=== PATIENT | male | born 1950 | race Caucasian/White ===

== ENCOUNTER → 2016-05-26 | Outpatient (CLI) | payer BC ==
--- NOTE | 2016-05-26 09:50 | REP ---
Chest x-ray: Two views. History: Shortness of breath. The patient gives history of sarcoidosis. Comparison chest x-ray July 11, 2007. CT findings: There are granulomatous calcifications scattered about the right lung apex and left perihilar region. There is some mild linear fibrosis in the left base. Heart is not enlarged. Pleural angles are sharp. Pulmonary vasculature is not increased. No evidence of hilar or mediastinal mass or adenopathy. There are degenerative changes in the thoracic spine mild in degree. Impression: No acute disease seen. Mild linear fibrosis left base. Signed by Damaso Betts MD 05/26/2016 10:25 A
== END ==
LOC: M SMT 09:27
PROVIDERS: ATTEND Family Medicine
DX: R06.02 Shortness of breath (principal); J84.112 Idiopathic pulmonary fibrosis

== ENCOUNTER → 2016-12-08 | Outpatient (CLI) | payer BC ==
[2016-12-08 13:42] LABS: ALBUMIN 3.8 GM/DL (3.2-5.2); ALBUMIN/GLOBULIN RATIO 1.27 (1.00-1.93); ALKALINE PHOSPHATASE 77 U/L (45-117); ALT/SGPT 47 U/L (12-78); ANION GAP 3 MEQ/L (8-16); AST/SGOT 25 U/L (15-37); BILIRUBIN,TOTAL 0.4 MG/DL (0.2-1.0); BLOOD UREA NITROGEN 22 MG/DL (7-18); CARBON DIOXIDE LEVEL 32 MEQ/L (21-32); CHLORIDE LEVEL 105 MEQ/L (98-107); CREATININE FOR GFR 0.77 MG/DL (0.70-1.30); GLOMERULAR FILTRATION RATE > 60.0 (>49); GLUCOSE, FASTING 80 MG/DL (80-110); POTASSIUM SERUM 4.6 MEQ/L (3.5-5.1); SODIUM LEVEL 140 MEQ/L (136-145); TOTAL PROTEIN 6.8 GM/DL (6.4-8.2)
== END ==
LOC: M SMT 09:58
PROVIDERS: ATTEND Family Medicine
DX: E55.9 Vitamin D deficiency, unspecified (principal); R73.01 Impaired fasting glucose

== ENCOUNTER → 2017-01-04 | Outpatient (CLI) | payer BC ==
--- NOTE | 2017-01-04 16:53 | REP ---
PA and lateral chest: Comparisons 05/26/2016. There is minor chronic fibrosis above the left hemidiaphragm. The right costophrenic angle is slightly effaced suggestive of a small right pleural effusion. Cardiac size is normal. The ede, mediastinum, and bony thorax are unremarkable. Stable granulomas are again noted in the right lung. Impression: Questionable tiny right pleural effusion. Chronic fibrosis inferiorly in the left lung. Stable granulomas. Signed by Haider Delgado MD 01/04/2017 04:44 P
[2017-01-04 19:04] LABS: ALBUMIN 3.3 GM/DL (3.2-5.2); ALBUMIN/GLOBULIN RATIO 0.97 (1.00-1.93); ALKALINE PHOSPHATASE 166 U/L (45-117); ALT/SGPT 109 U/L (12-78); ANION GAP 7 MEQ/L (8-16); AST/SGOT 52 U/L (15-37); BILIRUBIN,TOTAL 0.5 MG/DL (0.2-1.0); BLOOD UREA NITROGEN 18 MG/DL (7-18); CALCIUM LEVEL 9.3 MG/DL (8.8-10.2); CARBON DIOXIDE LEVEL 33 MEQ/L (21-32); CHLORIDE LEVEL 104 MEQ/L (98-107); CREATININE FOR GFR 1.04 MG/DL (0.70-1.30); GLOMERULAR FILTRATION RATE > 60.0 (>49); GLUCOSE, FASTING 101 MG/DL (80-110); POTASSIUM SERUM 4.5 MEQ/L (3.5-5.1); SODIUM LEVEL 144 MEQ/L (136-145); TOTAL PROTEIN 6.7 GM/DL (6.4-8.2)
[2017-01-04 20:30] LABS: BASO % 0.4 % (0.0-1.0); EOS # 0.2 K/mm3 (0.0-0.50); EOS % 2.2 % (0.0-3.0); LARGE UNSTAINED CELL # 0.2 K/mm3 (0.0-0.4); LARGE UNSTAINED CELL % 1.9 % (0.0-4.0); LYMPH # 1.2 K/mm3 (1.5-4.5); LYMPH % 14.9 % (24.0-44.0); MEAN CORPUSCULAR HEMOGLOBIN 31.9 pg (27.0-33.0); MEAN CORPUSCULAR HGB CONC 34.4 g/dl (32.0-36.5); MEAN CORPUSCULAR VOLUME 92.7 fl (80.0-96.0); MONO # 0.4 K/mm3 (0.0-0.8); MONO % 5.4 % (0.0-5.0); NEUTROPHILS % 75.1 % (36.0-66.0); PLATELET COUNT, AUTOMATED 217 k/mm3 (150-450); RED CELL DISTRIBUTION WIDTH 12.9 % (11.5-14.5)
[2017-01-04 21:15] LABS: ERYTHROCYTE SEDIMENTATION RATE 57 mm/hr (0-20)
== END ==
LOC: M SMT 12:17
PROVIDERS: ATTEND Family Medicine
DX: R06.02 Shortness of breath (principal)

== ENCOUNTER → 2017-01-18 | Outpatient (CLI) | payer BC | LOC: M SMT 08:45 | PROVIDERS: ATTEND Family Medicine | DX: N62 Hypertrophy of breast (principal) ==

== ENCOUNTER → 2017-04-13 | Outpatient (REF) | payer BC | LOC: M LAB REF 15:27 | DX: D48.5 Neoplasm of uncertain behavior of skin (principal); L82.1 Other seborrheic keratosis | CPT/HCPCS: 88305 ==

== ENCOUNTER → 2017-04-18 | Outpatient (CLI) | payer BC ==
[2017-04-19 14:13] LABS: PSA TOTAL 2.4 ng/mL (0.0-4.0); TESTOSTERONE FREE (DIRECT) 32.5 pg/mL (6.6-18.1)
== END ==
LOC: M SMT 08:34
DX: E29.1 Testicular hypofunction (principal)
CPT/HCPCS: 84403

== ENCOUNTER → 2017-08-17 | Outpatient (CLI) | payer BC ==
[2017-08-17 13:45] LABS: TOTAL 25(OH) VITAMIN D 24.1 NG/ML (30.0-100.0)
[2017-08-17 14:11] LABS: CHOLESTEROL LEVEL 169 MG/DL (<200); CHOLESTEROL RISK RATIO 4.333 (<5); HDL CHOLESTEROL 39 MG/DL (>40); LDL CHOLESTEROL 117.6 MG/DL (<100); NON-HDL-C 130 MG/DL; TRIGLYCERIDES LEVEL 62 MG/DL (<150)
[2017-08-22 00:08] LABS: PSA TOTAL 2.9 ng/mL (0.0-4.0); TESTOSTERONE FREE (DIRECT) 23.7 pg/mL (6.6-18.1)
== END ==
LOC: M SMT 08:31
DX: E29.1 Testicular hypofunction (principal); E55.9 Vitamin D deficiency, unspecified
CPT/HCPCS: 84403

== ENCOUNTER → 2017-08-21 | Outpatient (REF) | payer BC | LOC: M LAB REF 17:21 | DX: R35.0 Frequency of micturition (principal) | CPT/HCPCS: 87086 ==

== ENCOUNTER → 2018-01-11 | Outpatient (REF) | payer BC | LOC: M LAB REF 15:52 | DX: D48.5 Neoplasm of uncertain behavior of skin (principal) | CPT/HCPCS: 88305 ==

== ENCOUNTER → 2019-02-03 | Outpatient (CLI) | payer BC ==
[2019-02-03 10:40] LABS: BASO # 0.1 10^3/uL (0.0-0.2); BASO % 1.1 % (0.0-1.0); EOS # 0.1 10^3/uL (0.0-0.5); EOS % 1.5 % (0.0-3.0); HEMATOCRIT 60.4 % (42.0-52.0); LYMPH # 1.4 10^3/uL (1.5-5.0); LYMPH % 26.7 % (24.0-44.0); MEAN CORPUSCULAR HEMOGLOBIN 32.1 pg (27.0-33.0); MEAN CORPUSCULAR HGB CONC 33.4 g/dl (32.0-36.5); MONO # 0.5 10^3/uL (0.0-0.8); MONO % 9.6 % (0.0-5.0); NEUTROPHILS # 3.2 10^3/uL (1.5-8.5); NEUTROPHILS % 60.2 % (36.0-66.0); PLATELET COUNT, AUTOMATED 151 10^3/uL (150-450); RED BLOOD COUNT 6.29 10^6/uL (4.30-6.10); WHITE BLOOD COUNT 5.3 10^3/uL (4.0-10.0)
[2019-02-03 10:43] LABS: HEMOGLOBIN 20.2 g/dl (13.5-17.5)
[2019-02-03 11:45] LABS: ALBUMIN 3.6 GM/DL (3.2-5.2); ALT/SGPT 43 U/L (12-78); BILIRUBIN,TOTAL 0.7 MG/DL (0.2-1.0); BLOOD UREA NITROGEN 15 MG/DL (7-18); CALCIUM LEVEL 8.4 MG/DL (8.8-10.2); CARBON DIOXIDE LEVEL 32 MEQ/L (21-32); CHLORIDE LEVEL 104 MEQ/L (98-107); CHOLESTEROL LEVEL 160 MG/DL (<200); CHOLESTEROL RISK RATIO 4.102 (<5); FREE T4 0.84 NG/DL (0.76-1.46); GLOMERULAR FILTRATION RATE > 60.0 (>42); GLUCOSE, FASTING 92 MG/DL (70-100); HDL CHOLESTEROL 39 MG/DL (>40); LDL CHOLESTEROL 109 MG/DL (<100); NON-HDL-C 121 MG/DL; POTASSIUM SERUM 4.5 MEQ/L (3.5-5.1); SODIUM LEVEL 140 MEQ/L (136-145); TOTAL PROTEIN 6.2 GM/DL (6.4-8.2); TRIGLYCERIDES LEVEL 62 MG/DL (<150)
--- NOTE | 2019-02-04 03:01 | REP ---
Clinical: Right hip pain. Technique: Neutral and frog lateral views of the right hip. Findings: Age-related changes include subtle increase sclerosis along the acetabular roof with mild joint space narrowing. No further overt osteoarthritic degenerative changes are appreciated. No acute fracture dislocation. Surrounding soft tissues are unremarkable. Impression: Mild age-related degenerative changes. Electronically Signed by Chris Crowell MD 02/04/2019 02:52 A
[2019-02-06 00:16] LABS: PSA % FREE 19.4 % (.); PSA FREE 0.93 ng/mL; PSA TOTAL 4.8 ng/mL (0.0-4.0); TESTOSTERONE FREE (DIRECT) 27.5 pg/mL (6.6-18.1)
== END ==
LOC: M SMT 08:29
PROVIDERS: ATTEND Physician Assistant
DX: Z00.00 Encounter for general adult medical examination without abnormal findings (principal); E78.00 Pure hypercholesterolemia, unspecified; R06.02 Shortness of breath; F52.21 Male erectile disorder; M16.11 Unilateral primary osteoarthritis, right hip

== ENCOUNTER → 2019-03-10 | Outpatient (CLI) | payer BC ==
[2019-03-10 13:17] LABS: BASO # 0.1 10^3/uL (0.0-0.2); BASO % 0.7 % (0.0-1.0); EOS # 0.1 10^3/uL (0.0-0.5); EOS % 1.4 % (0.0-3.0); HEMATOCRIT 57.2 % (42.0-52.0); HEMOGLOBIN 19.3 g/dl (13.5-17.5); LYMPH # 1.2 10^3/uL (1.5-5.0); LYMPH % 16.3 % (24.0-44.0); MEAN CORPUSCULAR HEMOGLOBIN 32.2 pg (27.0-33.0); MEAN CORPUSCULAR HGB CONC 33.7 g/dl (32.0-36.5); MEAN CORPUSCULAR VOLUME 95.5 fl (80.0-96.0); MONO # 0.6 10^3/uL (0.0-0.8); NEUTROPHILS # 5.3 10^3/uL (1.5-8.5); PLATELET COUNT, AUTOMATED 153 10^3/uL (150-450); RED BLOOD COUNT 5.99 10^6/uL (4.30-6.10); WHITE BLOOD COUNT 7.3 10^3/uL (4.0-10.0)
[2019-03-12 00:07] LABS: PSA % FREE 21.8 % (.); PSA FREE 0.87 ng/mL
== END ==
LOC: M LABDRWAD 11:06
PROVIDERS: ATTEND Physician Assistant
DX: D75.1 Secondary polycythemia (principal); R97.20 Elevated prostate specific antigen [PSA]; E29.1 Testicular hypofunction

== ENCOUNTER → 2019-03-11 | Outpatient (REF) | payer BC ==
[2019-03-15 00:07] LABS: TESTOSTERONE FREE (DIRECT) 11.5 pg/mL (6.6-18.1)
== END ==
LOC: M LABDRWAD 16:20
PROVIDERS: ATTEND Physician Assistant
DX: D75.1 Secondary polycythemia (principal); R97.20 Elevated prostate specific antigen [PSA]; E29.1 Testicular hypofunction

== ENCOUNTER → 2019-06-02 | Outpatient (REF) | payer BC ==
[~2019-06-02] MED LIST: ADV250INH INH; ASPI325T57 PO; FLAR0.1S OD; PRAV40TA PO; TEST200I14 IM
[2019-06-02 13:36] LABS: BASO # 0.1 10^3/uL (0.0-0.2); EOS # 0.1 10^3/uL (0.0-0.5); EOS % 1.7 % (0.0-3.0); HEMATOCRIT 53.5 % (42.0-52.0); HEMOGLOBIN 18.4 g/dl (13.5-17.5); LYMPH # 1.2 10^3/uL (1.5-5.0); LYMPH % 23.8 % (24.0-44.0); MEAN CORPUSCULAR HEMOGLOBIN 32.2 pg (27.0-33.0); MEAN CORPUSCULAR HGB CONC 34.4 g/dl (32.0-36.5); MEAN CORPUSCULAR VOLUME 93.7 fl (80.0-96.0); MONO # 0.4 10^3/uL (0.0-0.8); MONO % 7.6 % (0.0-5.0); NEUTROPHILS # 3.2 10^3/uL (1.5-8.5); NEUTROPHILS % 65.5 % (36.0-66.0); PLATELET COUNT, AUTOMATED 151 10^3/uL (150-450); RED BLOOD COUNT 5.71 10^6/uL (4.30-6.10); WHITE BLOOD COUNT 4.8 10^3/uL (4.0-10.0)
[2019-06-04 00:06] LABS: PSA TOTAL 2.6 ng/mL (0.0-4.0); TESTOSTERONE FREE (DIRECT) 12.4 pg/mL (6.6-18.1)
== END ==
LOC: M LABDRWAD 12:44
PROVIDERS: ATTEND Physician Assistant
DX: E29.1 Testicular hypofunction (principal); D75.1 Secondary polycythemia

== ENCOUNTER 2019-06-04 17:27 | Emergency (ER) | payer BC, OTHER ==
[~2019-06-04] VITALS: Ht 182.9 cm; Wt 108.0 kg
[2019-06-04] MEDS ORDERED: ADV250INH INH (17:37)
[2019-06-04] MEDS ORDERED: ASPI325T57 PO (17:37)
[2019-06-04] MEDS ORDERED: PRAV40TA PO (17:37)
[2019-06-04 17:59] LABS: BASO % 0.5 % (0.0-1.0); EOS # 0.1 10^3/uL (0.0-0.5); EOS % 1.6 % (0.0-3.0); HEMATOCRIT 48.3 % (42.0-52.0); LYMPH # 1.7 10^3/uL (1.5-5.0); LYMPH % 22.1 % (24.0-44.0); MEAN CORPUSCULAR HEMOGLOBIN 32.3 pg (27.0-33.0); MEAN CORPUSCULAR HGB CONC 35.2 g/dl (32.0-36.5); MEAN CORPUSCULAR VOLUME 91.8 fl (80.0-96.0); MONO # 0.6 10^3/uL (0.0-0.8); MONO % 7.6 % (0.0-5.0); NEUTROPHILS # 5.1 10^3/uL (1.5-8.5); NEUTROPHILS % 67.7 % (36.0-66.0); PLATELET COUNT, AUTOMATED 155 10^3/uL (150-450); RED BLOOD COUNT 5.26 10^6/uL (4.30-6.10); WHITE BLOOD COUNT 7.5 10^3/uL (4.0-10.0)
[2019-06-04] MEDS: NITROGLYCERIN 0.4 MG SUBL TABLET SL PRN ×2 (18:00→18:16)
[2019-06-04 18:11] LABS: INR 1.09; PROTHROMBIN TIME 13.8 SECONDS (11.8-14.0)
[2019-06-04 18:12] LABS: PARTIAL THROMBOPLASTIN TIME 25.7 SECONDS (25.0-38.4)
[2019-06-04] MEDS: MORPHINE 2 MG/ML 1ML VIAL (J2270) IV PRN ×2 (18:13→18:59)
[2019-06-04] MEDS ORDERED: ONDANSETRON 4MG/2ML VIAL (J2405) IV ONE (18:15)
[2019-06-04 18:16] VITALS: BP 119/69
[2019-06-04 18:20] LABS: ALBUMIN 3.6 GM/DL (3.2-5.2); ALT/SGPT 39 U/L (12-78); BILIRUBIN,DIRECT 0.2 MG/DL (0.0-0.2); BILIRUBIN,TOTAL 0.5 MG/DL (0.2-1.0); BLOOD UREA NITROGEN 19 MG/DL (7-18); CALCIUM LEVEL 8.4 MG/DL (8.8-10.2); CARBON DIOXIDE LEVEL 29 MEQ/L (21-32); CHLORIDE LEVEL 106 MEQ/L (98-107); CK-MB VALUE MASS 5.5 NG/ML (<3.6); CPK CREATINE PHOSPHOKINASE 179 U/L (39-308); CREATININE FOR GFR 1.08 MG/DL (0.70-1.30); GLOMERULAR FILTRATION RATE > 60.0 (>42); GLUCOSE, FASTING 125 MG/DL (70-100); LIPASE 120 U/L (73-393); MB/CK RELATIVE INDEX 3.07 (< OR =4); SODIUM LEVEL 138 MEQ/L (136-145); TROPONIN I 0.05 NG/ML (< 0.10)
[2019-06-04] MEDS ORDERED: ISOVUE-370 76% 100ML VIAL (Q9967) As Ordered ONE ×2 (18:33→18:42)
--- NOTE | 2019-06-04 18:48 | REP ---
Clinical: Chest pain . Comparison: 01/04/2017 . Findings: The mediastinum and cardiac silhouette are stable and within normal limits for portable technique. The lung solomon are clear without acute consolidation, effusion, or pneumothorax. Skeletal structures are intact. Impression: No acute cardiopulmonary process appreciated. Electronically Signed by Chris Crowell MD 06/04/2019 06:40 P
--- NOTE | 2019-06-04 19:04 | REPVR ---
PROCEDURE INFORMATION: Exam: CT Angiography Chest With Contrast Exam date and time: 06/04/2019 6:23 PM Age: 69 years old Clinical indication: Chest pain; Additional info: R/O taa/disection TECHNIQUE: Imaging protocol: Computed tomographic angiography of the chest with intravenous contrast. 3D rendering: MIP and/or 3D reconstructed images were created by the technologist. Radiation optimization: All CT scans at this facility use at least one of these dose optimization techniques: automated exposure control; mA and/or kV adjustment per patient size (includes targeted exams where dose is matched to clinical indication); or iterative reconstruction. Contrast material: ISOVUE 370; Contrast volume: 100 ml; Contrast route: IV; COMPARISON: CR PORTABLE CHEST X-RAY 06/04/2019 5:53 PM FINDINGS: Pulmonary arteries: There are no pulmonary emboli. Aorta: There is fusiform dilatation of the ascending thoracic aorta which measures 3.7 cm. maximally. There is no dissection or saccular component. Lungs: Small polygonal ground-glass opacity right lung base likely atelectatic. Small calcified granulomata right upper lobe. Pleural space: Unremarkable. No pneumothorax. No pleural effusion. Heart: There is mild atherosclerotic calcification of the coronary arteries. Lymph nodes: Multiple calcified right and left hilar lymph nodes. Bones/joints: The spine demonstrates mild degenerative changes. Soft tissues: Unremarkable. IMPRESSION: 1. There is fusiform dilatation of the ascending thoracic aorta which measures 3.7 cm. maximally. There is no dissection or saccular component. 2. There are no pulmonary emboli. 3. No acute pulmonary parenchymal abnormalities. 4. Findings consistent with remote intrathoracic granulomatous infection. Electronically signed by: Lee Ngo On 06/04/2019 19:04:24 PM
[2019-06-04] MEDS ORDERED: TEST200I14 IM (19:50)
[2019-06-04] MEDS ORDERED: FLAR0.1S OD (20:05)
[2019-06-04 20:36] LABS: CK-MB VALUE MASS 13.2 NG/ML (<3.6); MB/CK RELATIVE INDEX 5.48 (< OR =4); TROPONIN I 2.07 NG/ML (< 0.10)
[2019-06-04] MEDS ORDERED: ASPIRIN 325 MG TAB PO ONE (20:45)
[2019-06-04] MEDS ORDERED: CLOPIDOGREL 300 MG TAB (PLAVIX) PO STA (20:45)
[2019-06-04] MEDS ORDERED: HEPARIN DRIP 25,000 UNITS in IV 1 EA IV SCH (20:45)
[2019-06-04] MEDS ORDERED: HEPARIN SOD (PORCINE) 5000 UNITS/ML VIAL (J1644 PER 1000UNITS) IV ONE (20:45)
--- NOTE | 2019-06-04 20:46 | ECGEPIP ---
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
--- NOTE | 2019-06-04 20:51 | ECGEPIP ---
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
[2019-06-04 22:01] VITALS: BP 141/67
== END 2019-06-04 22:11 | disposition short-term general hospital (02) ==
LOC: EDBD 17:27 → M ED 17:27
DX: I21.4 Non-ST elevation (NSTEMI) myocardial infarction (principal); I71.2 Thoracic aortic aneurysm, without rupture; E78.5 Hyperlipidemia, unspecified; J45.909 Unspecified asthma, uncomplicated; Z79.82 Long term (current) use of aspirin; Z79.899 Other long term (current) drug therapy
CPT/HCPCS: 71045; 71275; 80047; 80048; 80076; 82550; 82553; 83690; 84484; 85025; 85610; 85730; 93005; 93041; 94760; 96374; 96375; 99285; J1644; J2270; J2405; Q9967

== ENCOUNTER → 2019-09-02 | Outpatient (REF) | payer OTHER ==
[2019-09-02 13:29] LABS: BASO % 0.8 % (0.0-1.0); EOS # 0.2 10^3/uL (0.0-0.5); EOS % 3.7 % (0.0-3.0); HEMATOCRIT 53.5 % (42.0-52.0); HEMOGLOBIN 18.5 g/dl (13.5-17.5); LYMPH # 1.6 10^3/uL (1.5-5.0); LYMPH % 30.4 % (24.0-44.0); MEAN CORPUSCULAR HGB CONC 34.6 g/dl (32.0-36.5); MEAN CORPUSCULAR VOLUME 95.4 fl (80.0-96.0); MONO # 0.6 10^3/uL (0.0-0.8); MONO % 11.2 % (0.0-5.0); NEUTROPHILS # 2.8 10^3/uL (1.5-8.5); NEUTROPHILS % 53.3 % (36.0-66.0); PLATELET COUNT, AUTOMATED 176 10^3/uL (150-450); RED BLOOD COUNT 5.61 10^6/uL (4.30-6.10); WHITE BLOOD COUNT 5.2 10^3/uL (4.0-10.0)
[2019-09-02 14:22] LABS: ALBUMIN 3.9 GM/DL (3.2-5.2); ALT/SGPT 50 U/L (12-78); BILIRUBIN,TOTAL 0.6 MG/DL (0.2-1.0); BLOOD UREA NITROGEN 15 MG/DL (7-18); CALCIUM LEVEL 9.2 MG/DL (8.8-10.2); CARBON DIOXIDE LEVEL 32 MEQ/L (21-32); CHLORIDE LEVEL 105 MEQ/L (98-107); CHOLESTEROL LEVEL 147 MG/DL (<200); CHOLESTEROL RISK RATIO 3.062 (<5); CREATININE FOR GFR 0.84 MG/DL (0.70-1.30); GLOMERULAR FILTRATION RATE > 60.0 (>42); GLUCOSE, FASTING 92 MG/DL (70-100); HDL CHOLESTEROL 48 MG/DL (>40); LDL CHOLESTEROL 85 MG/DL (<100); NON-HDL-C 99 MG/DL; POTASSIUM SERUM 4.9 MEQ/L (3.5-5.1); SODIUM LEVEL 142 MEQ/L (136-145); TOTAL 25(OH) VITAMIN D 40.6 NG/ML (30.0-100.0); TOTAL PROTEIN 6.7 GM/DL (6.4-8.2); TRIGLYCERIDES LEVEL 72 MG/DL (<150)
[2019-09-03 14:19] LABS: TESTOSTERONE FREE (DIRECT) 10.7 pg/mL (6.6-18.1)
== END ==
LOC: M LABDRWAD 12:44
PROVIDERS: ATTEND Physician Assistant
DX: E55.9 Vitamin D deficiency, unspecified (principal); E78.00 Pure hypercholesterolemia, unspecified; E29.1 Testicular hypofunction

== ENCOUNTER → 2019-10-07 | Outpatient (REF) | payer MEDICARE ==
[2019-10-07 14:35] LABS: CHOLESTEROL RISK RATIO 3.545 (<5)
== END ==
LOC: M LABDRWAD 12:41
PROVIDERS: ATTEND Nurse Practitioner Adult Health
DX: I25.10 Atherosclerotic heart disease of native coronary artery without angina pectoris (principal); E78.00 Pure hypercholesterolemia, unspecified

== ENCOUNTER → 2019-10-23 | Outpatient (REF) | payer MEDICARE, BC, OTHER | LOC: M LAB REF 14:54 | PROVIDERS: ATTEND Physician Assistant | DX: C44.519 Basal cell carcinoma of skin of other part of trunk (principal); C44.629 Squamous cell carcinoma of skin of left upper limb, including shoulder ==

== ENCOUNTER → 2019-12-09 | Outpatient (REF) | payer BC, MEDICARE, OTHER | LOC: M LAB REF 14:00 | PROVIDERS: ATTEND Dermatology | DX: L90.5 Scar conditions and fibrosis of skin (principal) ==

== ENCOUNTER → 2021-01-25 | Outpatient (REF) | payer BC, MEDICARE, OTHER ==
[~2021-01-25] MED LIST changes: +ATOR40TA75 PO; +BRIL90TA PO; +CARV3.12 PO; +D-40TAB2 PO; +DIAZ10TA2 PO; +FLOM0.4C39 PO; +LOSA25TA14 PO; +MAGN400C PO; +MOME50SP NARES; +PROAAER10 INH; +SILD100T PO; +TRAM50TA2 PO
== END ==
LOC: M LAB REF 16:53
PROVIDERS: ATTEND Family Medicine
DX: R06.02 Shortness of breath (principal)

== ENCOUNTER 2021-01-26 14:03 | Observation (INO) | payer MEDICARE, OTHER ==
[~2021-01-26] VITALS: Ht 182.9 cm; Wt 116.9 kg
[~2021-01-26 14:03] MED LIST changes: -ATOR40TA75 PO; -BRIL90TA PO; -CARV3.12 PO; -D-40TAB2 PO; -DIAZ10TA2 PO; -FLOM0.4C39 PO; -ISOVUE-370 76% 100ML VIAL As Ordered ONE; -LOSA25TA14 PO; -MAGN400C PO; -MOME50SP NARES; -PROAAER10 INH; -SILD100T PO; -TRAM50TA2 PO
--- OUTSIDE RECORDS SUMMARY | 2021-01-26 14:10 | CCD | Continuity of Care Document ---
Author Author Rashid WRAY D.O. Organization Unknown Address [id number] [place] [address] Phone [phone] Care Team Providers Care Main Line Assembler Name Role Phone Grazyna Wray D.O. AUTM [phone] Problems Active Problems Provider Date Pure hypercholesterolemia Onset: 014 Epistaxis Grazyna Wray D.O. Onset: 2014 Neoplasm of uncertain behavior of skin Grazyna Wray D.O. Onset: 06/30/2014 Squamous Cell Carcinoma Skin Upper Limb Including Shou lder Grazyna Wray D.O. Onset: 07/02/2014 Bite of nonvenomous arthropod Grazyna Wray D.O. Ons et: 09/08/2014 Cellulitis Grazyna Wray D.O. Onset: 2014 Nonallopathic lesion of the head region Grazyna Wray D.O. Onset: 10/13/2014 Nonallopathic lesion of the cervical region Grazyna casiano D.O. Onset: 10/13/2014 Nonallopathic lesion of the thoracic region Grazyna casiano D.O. Onset: 10/13/2014 Nonallopathic lesion of lumbar region Grazyna Wray D.O. Onset: 10/13/2014 Nonallopathic lesion of sacral region Grazyna Wray D.O. Onset: 10/13/2014 Somatic dysfunction of pelvic region Stan Benjamin Onset: 10/13/2014 Dizziness and giddiness Stan Benjamin.O. 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 Onset: 10/13/2014 Lyme disease Stan Benjamin.O. Onset: 2014 Epidemic vertigo Stan Benjamin.O. Onset: 2014 Somatic dysfunction of sacroiliac joint Stan Benjamin.O. Onset: 01/15/2015 Somatic dysfunction of lower limb Stan Benjamin.O. Onset: 07/29/2015 Psychogenic impotence Stan Benjamin.O. Onset: 10/14 Adult health examination Grazyna Wray D.O. Onset: 0 12/06/2015 Inflamed seborrheic keratosis Grazyna Wray D.O. Ons et: 12/06/2015 Senile hyperkeratosis Stan Benjamin.O. Onset: 12/2015 Pain in thoracic spine Grazyna Wray D.O. Onset: Moderate persistent asthma Grazyna Wray D.O. Onset: 05/31/2016 Low back pain Grazyna Wray D.O. Onset: 2016 C/O - a back symptom Stan Benjamin.O. Onset: 06/08 Vitamin D deficiency Grazyna Wray D.O. Onset: 09/05 Impaired fasting glycemia Grazyna Wray D.O. Onset: 09/05/2016 Arthroplasty of knee Stan Benjamin.O. Onset: 09/05 Pain in right lower limb Grazyna Wray D.O. Onset: 0 09/05/2016 Dyspnea Grazyna Wray D.O. Onset: 2016 Moderate persistent asthma STACIA Burris Onset: 07/23 Moderate persistent asthma Grazyna Wray D.O. Onset: 09/04/2019 Social History Type Date Description Comments Sex Unknown ETOH Use Currently consumes alcohol Tobacco Use Start: Unknown Patient has never smoked Recreational Drug Use Denies Drug Use Smoking Status Reviewed: 07/24/19 Patient has never smoked Exercise Type/Frequency walks occasionally Allergies, Adverse Reactions, Alerts Active Allergies Reaction Severity Comments Date NKDA 01/08/2014 Bee Sting Flushing, Hives, Wheezing Severe Medications Active Medications SIG Qnty Indications Ordering Provide r Date Epipen 2-Prashanth 0.3mg/0 .3ML Solution Auto-Inject inject once in anterolateral thigh may r epeat after 5-15 min if symptoms persist 2units Z91.030 Stephanie BenjaminOLiliana 11/01 Tamsulosin HCL 0.4mg Capsules Take One Capsule By Mouth Every Day 90caps Stephanie BenjaminO. 02/17/2020 Ventolin HFA 108(90Base) mcg/Act A erosol 2 puffs every 4 hours shortness of breath or wheezing 24gm Stephanie BenjaminOLiliana 07/16/2019 Atorvastatin Calcium 40mg Tablets 1 by mouth every day Stephanie BenjaminOLiliana 06/26 Sildenafil Citrate 100mg Tablets take 1 tablet daily before sexual activity as needed 26tabs F52.21 Stephanie CheneyOLiliana 12/10/2018 Albuterol Sulfate 1.25mg/3ML Nebul izer one nebulizer every 6 hours as needed for shortness of breath 30ml Stephanie CheneyOLiliana 05/23/2018 Nebulizer Kit/Tubing/Mouthpiece K it dispense: 1 kit duration: 99 prognosis: fair 1units J20.9 Stephanie BenjaminOLiliana 05/23/2018 BD 3ML Syringe/Safetyglide Shielding Im Needle 23GX1" 23G X 1" 3 ML Misc use to inject testosterone 100units Stephanie BenjaminOLiliana 01/11/2018 Fluorouracil 5% Solution apply sufficient amount of solution to cover lesion on back q12hr for 3-6 wk; may continue application for up to 10-12 weeks 30ml Stephanie CheneyOLiliana 04/13/2017 BD 1ML Tuberculin Syringeslip-Tip 1ml Misc use to draw up testosterone 100units Stephanie AlexandraOLiliana 02/20/2017 Alcohol Pads 70% Pads to be used once daily when administering testosterone injection 180units Stephanie BenjaminOLiliana 01/26/2017 Testosterone Cypionate 200mg/ml So lution injection 0.6 milliliters once a week code f istop [id number] 7ml E29.1 Stephanie BenjaminOLiliana 01/23/2017 Vitamin D3 Super Strength 2000Unit Capsules 1 by mouth every day 90caps E55.9 Stephanie BenjaminOLiliana 09/05/2016 Tramadol HCL 50mg Tablets Take One Tablet By Mouth Twice A Day as Needed * Maximum Daily Dose = 2 60tabs M54. 6 Stephanie BenjaminOLiliana 06/08/2016 Cyclobenzaprine HCL 10mg Tablets one tablet daily three times a day as needed 90tabs M62.830 Stephanie BenjaminO. 06/08/2016 Mucinex 600mg Tablets ER 12HR 1 tab every 12 hours as needed 60tabs J01.00 Stephanie BenjaminO. Valium 10mg Tablets take one tablet by mouth three times daily for 4 days istop reference #: [id number] 12tabs R42 Stephanie BenjaminOLiliana 2015 Cetirizine HCL 10mg Tablets 1 by mouth every day 30tabs Stephanie BenjaminOLiliana 09/08 Nasonex 50mcg/Act Suspension 1 spray in each nostril daily as needed 51gm Stephanie ChicasOLiliana 01/27/2014 Advair Diskus 250-50mcg/Dose Aeros ol 1 puffs inhaled twice daily (90 day supplies) 180units Stephanie BenjaminOLiliana 01/27/2014 Magnesium Oxide 400mg Tablets 1 by mouth every day Unknown Co Q10 Maximum Strength 200mg Caps ules 1 cap by mouth daily Unknown Calcium 600+D High Potency [id number]-Aarm Tablets 1 tab by mouth daily Unknown Turmeric 500mg Capsules two tablet by mouth once per day Unknown Carvedilol 3.125mg Tablets 1 by mouth twice daily Unknown Nitroglycerin 0.4mg Tablets Sub 1 under the tongue every 5 minutes for chest pain up to 3 doses as needed for chest pain Unknown Brilinta 90mg Tablets 1 tab by mouth twice a day Unknown Fluorometholone 0.1% Suspension 1 drop in right eye every 4 hours Unknown Losartan Potassium 25mg Tablets 1 by mouth every evening Unknown Immunizations Description No Information Available Vital Signs Date Vital Result Comment 11/11/2020 3:47pm BP Systolic 138 mmHg BP Diastolic 84 mmHg Height 71 inches 5'11" Weight 259.00 lb BMI (Body Mass Index) 36.1 kg/m2 Heart Rate 76 /min Respiratory Rate 20 /min Body Temperature 98.4 F O2 % BldC Oximetry 99 % [place] [facility] Weight 172 lb 06/23/2020 9:26am BP Systolic 140 mmHg BP Diastolic 68 mmHg Height 71 inches 5'11" Weight 246.00 lb BMI (Body Mass Index) 34.3 kg/m2 Heart Rate 71 /min Respiratory Rate 18 /min Body Temperature 97.7 F O2 % BldC Oximetry 96 % [place] [facility] Weight 172 lb Results Description No Information Available Procedures Date Code Description Status 11/11/2020 25797 Office/Outpatient Established w MDM 20-29 Min Completed 11/11/2020 04620 Omt 9-10 Body [place] Completed 06/23/2020 87890 Office/Outpatient Established w MDM 20-29 Min Completed 06/23/2020 36311 Omt 7-8 Body [place] Completed Medical Devices Description No Information Available Encounters Type Date Location Provider Dx Diagnosis Office Visit 11/11/2020 3:40p [facility] Lex Wray D.O. M54.6 Pain in thoracic spine M25.551 Pain in right hip M54.5 Low back pain M99.00 Segmental and somatic dysfun ction of head region M99.01 Segmental and somatic dysfun ction of cervical region M99.02 Segmental and somatic dysfun ction of thoracic region M99.03 Segmental and somatic dysfun ction of lumbar region M99.05 Segmental and somatic dysfun ction of pelvic region M99.04 Segmental and somatic dysfun ction of sacral region M99.06 Segmental and somatic dysfun ction of lower extremity M99.07 Segmental and somatic dysfun ction of upper extremity M99.08 Segmental and somatic dysfun ction of rib cage Office Visit 06/23/2020 9:20a [facility] Grazyna Wray D.O. M54.6 Pain in thoracic spine M25.551 Pain in right hip M54.5 Low back pain M99.00 Segmental and somatic dysfun ction of head region M99.01 Segmental and somatic dysfun ction of cervical region M99.02 Segmental and somatic dysfun ction of thoracic region M99.03 Segmental and somatic dysfun ction of lumbar region M99.05 Segmental and somatic dysfun ction of pelvic region M99.04 Segmental and somatic dysfun ction of sacral region M99.06 Segmental and somatic dysfun ction of lower extremity Assessments Date Code Description Provider 11/11/2020 M54.6 Pain in thoracic spine Grazyna Dumont, D.O. 11/11/2020 M25.551 Pain in right hip Grazyna Kaufman D.O. 11/11/2020 M54.5 Low back pain Grazyna casiano D.O. 11/11/2020 M99.00 Segmental and somatic dysfunctio n of head region Grazyna Wray D.O. 11/11/2020 M99.01 Segmental and somatic dysfunctio n of cervical region Grazyna Wray D.O. 11/11/2020 M99.02 Segmental and somatic dysfunctio n of thoracic region Grazyna Wray D.O. 11/11/2020 M99.03 Segmental and somatic dysfunctio n of lumbar region Grazyna Wray D.O. 11/11/2020 M99.05 Segmental and somatic dysfunctio n of pelvic region Grazyna Chaconeano-Mandeep, D.O. 11/11/2020 M99.04 Segmental and somatic dysfunctio n of sacral region Grazyna Chaconeano-Mandeep, D.O. 11/11/2020 M99.06 Segmental and somatic dysfunctio n of lower extremity Grazyna Chaconeano-Mandeep, D.O. 11/11/2020 M99.07 Segmental and somatic dysfunctio n of upper extremity Grazyna Matthew-Mandeep, D.O. 11/11/2020 M99.08 Segmental and somatic dysfunctio n of rib cage Grazyna Fariasno- Mandeep, D.O. 06/23/2020 M54.6 Pain in thoracic spine Grazyna Chacon eano-Mandeep, D.O. 06/23/2020 M25.551 Pain in right hip Grazyna Castro- Mandeep, D.O. 06/23/2020 M54.5 Low back pain Grazyna UriarteWalters rber, D.O. 06/23/2020 M99.00 Segmental and somatic dysfunctio n of head region Grazyna Fariasno-Mandeep, D.O. 06/23/2020 M99.01 Segmental and somatic dysfunctio n of cervical region Grazyna Fraiasno-Mandeep, D.O. 06/23/2020 M99.02 Segmental and somatic dysfunctio n of thoracic region Grazyna Chaconeano-Mandeep, D.O. 06/23/2020 M99.03 Segmental and somatic dysfunctio n of lumbar region Grazyna Chaconeano-Mandeep, D.O. 06/23/2020 M99.05 Segmental and somatic dysfunctio n of pelvic region Grazyna Chaconeano-Mandeep, D.O. 06/23/2020 M99.04 Segmental and somatic dysfunctio n of sacral region Grazyna Chaconeano-Mandeep, D.O. 06/23/2020 M99.06 Segmental and somatic dysfunctio n of lower extremity Grazyna Wray D.O. Plan of Treatment No Information Available Functional Status Description No Information Available Mental Status Description No Information Available Referrals Description No Information Available
--- OUTSIDE RECORDS SUMMARY | 2021-01-26 14:10 | CCD | Continuity of Care Document ---
Author Author Rashid CHIN D.O. Organization Unknown Address [address] [place] [address] Phone [phone] Care Team Providers Care Requirements Manager Name Role Phone Grazyna Chin D.O. AUTM [phone] Problems Active Problems Provider Date Pure hypercholesterolemia Onset: 014 Epistaxis Grazyna Chin D.O. Onset: 2014 Neoplasm of uncertain behavior of skin Grazyna Chin D.O. Onset: 06/30/2014 Squamous Cell Carcinoma Skin Upper Limb Including Shou lder Grazyna Chin D.O. Onset: 07/02/2014 Bite of nonvenomous arthropod Grazyna Chin D.O. Ons et: 09/08/2014 Cellulitis Grazyna Chin D.O. Onset: 2014 Nonallopathic lesion of the head region Grazyna Chin D.O. Onset: 10/13/2014 Nonallopathic lesion of the cervical region Grazyna casiano D.O. Onset: 10/13/2014 Nonallopathic lesion of the thoracic region Grazyna casiano D.O. Onset: 10/13/2014 Nonallopathic lesion of lumbar region Grazyna Chin D.O. Onset: 10/13/2014 Nonallopathic lesion of sacral region Grazyna Chin D.O. Onset: 10/13/2014 Somatic dysfunction of pelvic [...] Benjamin.O. Onset: 10/14 Adult health examination Grazyna Chin D.O. Onset: 0 12/06/2015 Inflamed seborrheic keratosis Grazyna Chin D.O. Ons et: 12/06/2015 Senile hyperkeratosis Stan Benjamin.O. Onset: 12/2015 Pain in thoracic spine Grazyna Chin D.O. Onset: Moderate persistent asthma Grazyna Chin D.O. Onset: 05/31/2016 Low back pain Grazyna Chin D.O. Onset: 2016 C/O - a back symptom Stan Benjamin.O. Onset: 06/08 Vitamin D deficiency Grazyna Chin D.O. Onset: 09/05 Impaired fasting glycemia Grazyna Chin D.O. Onset: 09/05/2016 Arthroplasty of knee Stan Benjamin.O. Onset: 09/05 Pain in right lower limb Grazyna Chin D.O. Onset: 0 09/05/2016 Dyspnea Grazyna Chin D.O. Onset: 2016 Moderate persistent asthma STACIA Burris Onset: 07/23 Moderate persistent asthma Grazyna Chin D.O. Onset: 09/04/2019 Moderate persistent asthma Grazyna Chin D.O. Onset: 01/25/2021 Social History Type Date Description Comments Sex Unknown ETOH Use Currently consumes alcohol Tobacco Use Start: Unknown Patient has never smoked Recreational Drug Use Denies Drug Use Smoking Status Reviewed: 01/25/21 Patient has never smoked Exercise Type/Frequency walks occasionally Allergies and adverse reactions Active Allergies Criticality Reaction | Severity Comments Date NKDA Unable to assess criticality 01/08/2014 Bee Sting Unable to assess criticality Flushing, Hives, Wheezing | Severe 11/01/2020 Medications Active Medications SIG Qnty Indications Ordering Provide r Date Tadalafil 5mg Tablets take 1 tablet by mouth daily 90tabs Stephanie BenjaminOLiliana 12/23 Epipen 2-Prashanth 0.3mg/0 .3ML Solution Auto-Inject inject once in anterolateral thigh may epeat after 5-15 min if symptoms persist 2units Z91.030 Stephanie BenjaminOLiliana 11/01 Tamsulosin HCL 0.4mg Capsules Take One Capsule By Mouth Every Day 90caps Stephanie BenjaminOLiliana 02/17/2020 Ventolin HFA 108(90Base) mcg/Act A erosol [...] milliliters once a week code f istop [id number] 7ml E29.1 Stephanie BenjaminOLiliana 01/23/2017 Vitamin D3 Super Strength 2000Unit Capsules 1 by mouth every day 90caps E55.9 Stephanie BenjaminOLiliana 09/05/2016 Tramadol HCL 50mg Tablets Take One Tablet By Mouth Twice A Day as Needed * Maximum Daily Dose = 2 60tabs M54. 6 Stephanie BenjaminOLiliana 06/08/2016 Cyclobenzaprine HCL 10mg Tablets one tablet daily three times a day as needed 90tabs M62.830 Stephanie BenjaminOLiliana 06/08/2016 Mucinex 600mg Tablets ER 12HR 1 tab every 12 hours as needed 60tabs J01.00 Stephanie BenjaminOLiliana Valium 10mg Tablets take one tablet by mouth three times daily for 4 days istop reference #: [id number] 12tabs R42 Stephanie BenjaminOLiliana 2015 Cetirizine HCL 10mg Tablets 1 by mouth every day 30tabs Stephanie BenjaminOLiliana 09/08 Nasonex 50mcg/Act Suspension 1 spray in each nostril daily as needed 51gm Stephanie ChicasOLiliana 01/27/2014 Advair Diskus 250-50mcg/Dose Aeros ol 1 puffs inhaled twice daily (90 day supplies) 180units Grazyna Chin D.O. 01/27/2014 Magnesium Oxide 400mg Tablets 1 by mouth every day Unknown Co Q10 Maximum Strength 200mg Caps ules 1 cap by mouth daily Unknown Calcium 600+D High Potency [id number] Tablets 1 tab by mouth daily Unknown [...] Available Vital Signs Date Vital Result Comment 01/25/2021 3:27pm BP Systolic 126 mmHg BP Diastolic 72 mmHg Height 71 inches 5'11" Heart Rate 72 /min Respiratory Rate 20 /min Body Temperature 98.9 F O2 % BldC Oximetry 94 % [place] Body Weight 172 lb 11/11/2020 3:47pm BP Systolic 138 mmHg BP Diastolic 84 mmHg Height 71 inches 5'11" Weight 259.00 lb BMI (Body Mass Index) 36.1 kg/m2 Heart Rate 76 /min Respiratory Rate 20 /min Body Temperature 98.4 F O2 % BldC Oximetry 99 % [place] Body Weight 172 lb Results Description No Information Available Procedures Date Code Description Status 01/25/2021 41851 Office/Outpatient Established Mo d MDM 30-39 Min Completed 11/11/2020 34547 Office/Outpatient Established Lo w MDM 20-29 Min Completed 11/11/2020 65868 Omt 9-10 Body Regions Completed Medical Devices Description No Information Available Encounters Type Date Location Provider Dx Diagnosis Office Visit 01/25/2021 3:20p [facility] Medicine [facility] w Stephanie HerreraO. R06.02 Shortness of breath J45.40 Moderate persistent asthma, uncomplicated Office Visit 11/11/2020 3:40p [facility] Grazyna Chin D.OLiliana M54.6 Pain in thoracic spine M25.551 Pain [...] and somatic dysfun ction of rib cage Assessments Date Code Description Provider 01/25/2021 R06.02 Shortness of breath Grazyna Nation D.O. 01/25/2021 J45.40 Moderate persistent asthma, unco mplicated Grazyna Kaufman D.O. 11/11/2020 M54.6 Pain in thoracic spine Grazyna Dumont D.O. 11/11/2020 M25.551 Pain in right hip Grazyna Kaufman D.O. 11/11/2020 M54.5 Low back pain Grazyna casiano D.O. 11/11/2020 M99.00 Segmental and somatic dysfunctio n of head region Grazyna Chin D.O. 11/11/2020 M99.01 Segmental and somatic dysfunctio n of cervical region Grazyna Chin D.O. 11/11/2020 M99.02 Segmental and somatic dysfunctio n of thoracic region Grazyna Chin D.O. 11/11/2020 M99.03 Segmental and somatic dysfunctio n of lumbar region Grazyna Chin D.O. 11/11/2020 M99.05 Segmental and somatic dysfunctio n of pelvic region Grazyna Chin, D.O. 11/11/2020 M99.04 Segmental and somatic dysfunctio n of sacral region Grazyna Chin, D.O. 11/11/2020 M99.06 Segmental and somatic dysfunctio n of lower extremity Grazyna Chin, D.O. 11/11/2020 M99.07 Segmental and somatic dysfunctio n of upper extremity Grazyna Chin, D.O. 11/11/2020 M99.08 Segmental and somatic dysfunctio n of rib cage Grazyna Kaufman D.O. Plan of Treatment No Information Available Functional Status Description No Information Available Mental Status Description No Information Available Referrals Description No Information Available
--- OUTSIDE RECORDS SUMMARY | 2021-01-26 14:10 | CCD ---
Continuity of Care Document (CCD) Created on: 11/11/2020 Driss Rashid External Reference #: [id number] : 1950 Sex: Male Author Author Rashid WRAY D.O. Organization Unknown Address [address] [place] [address] Phone [phone] Care Team Providers Care Senior Linux Unix Administrator Name Role Phone Grazyna Wray D.O. AUTM [phone] Problems Active Problems Provider Date Pure hypercholesterolemia [...] duration: 99 prognosis: fair 1units J20.9 Stephanie BenajminOLiliana 05/23/2018 BD 3ML Syringe/Safetyglide Shielding Im Needle [...] milliliters once a week code f istop [id number] 7ml E29.1 Stephanie BenjaminOLiliana 01/23/2017 Vitamin D3 [...] daily for 4 days istop reference #: [id number] 12tabs R42 Stephanie BenjaminOLiliana 2015 Cetirizine HCL [...] mouth daily Unknown Calcium 600+D High Potency [id number] Tablets 1 tab by mouth daily Unknown [...] F O2 % BldC Oximetry 99 % [place] Body Weight 172 lb 06/23/2020 9:26am BP Systolic 140 mmHg BP Diastolic 68 mmHg Height 71 inches 5'11" Weight 246.00 lb BMI (Body Mass Index) 34.3 kg/m2 Heart Rate 71 /min Respiratory Rate 18 /min Body Temperature 97.7 F O2 % BldC Oximetry 96 % [place] Body Weight 172 lb Results Description No Information Available Procedures Date Code Description Status 11/11/2020 36849 Office/Outpatient Established w MDM 20-29 Min Completed 11/11/2020 02250 Omt 9-10 Body Regions Completed 06/23/2020 66782 Office/Outpatient Established w MDM 20-29 Min Completed 06/23/2020 01068 Omt 7-8 Body Regions Completed Medical Devices Description No Information Available Encounters Type Date Location Provider Dx Diagnosis Office Visit 11/11/2020 3:40p [facility] Lex Wray D.O. M54.6 Pain in [...] of rib cage Office Visit 06/23/2020 9:20a [facility] Grazyna Wray D.O. M54.6 Pain in thoracic [...] somatic dysfunctio n of cervical region Grazyna Fariasno-Mandeep, D.O. 06/23/2020 M99.02 Segmental and somatic dysfunctio [...] extremity Grazyna Wray D.O. Plan of Treatment 11/11/2020 - Grazyna Wray D.O.* M54.6 Pain in thoracic spine* Comments: * treated with OMT * M25.551 Pain in right hip* Comments:* treated with OMT * M54.5 Low back pain* Comments:* treated with OMT * M99.00 Segmental and somatic dysfunction of head region * M99.01 Segmental and somatic dysfunction of cervical region * M99.02 Segmental and somatic dysfunction of thoracic region * M99.03 Segmental and somatic dysfunction of lumbar region * M99.05 Segmental and somatic dysfunction of pelvic region * M99.04 Segmental and somatic dysfunction of sacral region * M99.06 Segmental and somatic dysfunction of lower extremity * M99.07 Segmental and somatic dysfunction of upper extremity * M99.08 Segmental and somatic dysfunction of rib cage Functional Status Description No Information Available Mental Status Description No Information Available Referrals Description No Information Available
--- OUTSIDE RECORDS SUMMARY | 2021-01-26 14:10 | CCD | Continuity of Care Document ---
Author Author Rashid CHIN D.O. Organization Unknown Address [address] [place] [address] Phone [phone] Care Team Providers Care Publications Production Supervisor Name Role Phone Grazyna Chin D.O. AUTM [phone] Problems Active Problems Provider Date Pure hypercholesterolemia [...] milliliters once a week code f istop [id number] 7ml E29.1 Stephanie BenjaminOLiliana 01/23/2017 Vitamin D3 [...] daily for 4 days istop reference #: [id number] 12tabs R42 Stephanie BenjaminOLiliana 2015 Cetirizine HCL [...] mouth daily Unknown Calcium 600+D High Potency [id number] Tablets 1 tab by mouth daily Unknown [...] F O2 % BldC Oximetry 94 % [place] Body Weight 172 lb 11/11/2020 3:47pm BP Systolic 138 mmHg BP Diastolic 84 mmHg Height 71 inches 5'11" Weight 259.00 lb BMI (Body Mass Index) 36.1 kg/m2 Heart Rate 76 /min Respiratory Rate 20 /min Body Temperature 98.4 F O2 % BldC Oximetry 99 % [place] Body Weight 172 lb Results Description No Information Available Procedures Date Code Description Status 01/25/2021 08212 Office/Outpatient Established Mo d MDM 30-39 Min Completed 11/11/2020 46539 Office/Outpatient Established Lo w MDM 20-29 Min Completed 11/11/2020 08208 Omt 9-10 Body Regions Completed Medical Devices Description No Information Available Encounters Type Date Location Provider Dx Diagnosis Office Visit 01/25/2021 3:20p [facility] Medicine [facility] w Stephanie HerreraO. R06.02 Shortness of breath J45.40 Moderate persistent asthma, uncomplicated Office Visit 11/11/2020 3:40p [facility] Grazyna Chin D.OLiliana M54.6 Pain in thoracic [...]
--- OUTSIDE RECORDS SUMMARY | 2021-01-26 14:10 | CCD ---
Author Author [facility] Organization [facility] Address Unknown Phone Unavailable Care Team Providers Care Sample Clerk Name Role Phone Belle Cagle Unavailable PROBLEMS Type Condition ICD9-CM Code LTO73-MH Code Onset Dates Condition S tatus W/U Status Risk SNOMED Code Notes Problem Hx of squamous cell carcinoma of skin Z85.828 Ac tive confirmed 126656563 Problem Screening exam for skin cancer Z12.83 Active confir med 654209601 Problem Nonallopathic lesion of sacral region 739.4 Ac tive confirmed 862969511 Problem Nonallopathic lesion of lumbar region 739.3 Ac tive confirmed 449531119 Problem Somatic dysfunction of lower extremity 739.6 A ctive confirmed 23432345 Problem Hx of basal cell carcinoma Z85.828 Active confirmed [id number] ALLERGIES No Known Allergies ENCOUNTERS from 1950 to 2020-10-27 Encounter Location Date Provider Diagnosis [facility] Dermatology IR [address] [phone] [place] [address] 13 Oct, 2020 Belle Cagle Folliculitis L73.9 ; Screeni ng exam for skin cancer Z12.83 ; Seborrheic keratosis, inflamed L82.0 ; SK (seborrheic keratosis) L82.1 ; Hx of actinic keratosis Z87.2 ; Hx of squamous cell carcinoma of skin Z85.828 and Hx of basal cell carcinoma Z85.828 IMMUNIZATIONS Vaccine Route Administration Date Status Influenza 6mo & up Fluzone Unknown June 23, 2014 Refus ed Influenza 6mo & up Fluzone Unknown Jun 10, 2014 Refus ed SOCIAL HISTORY Tobacco Use: Social History Observation Description Date Details (start date - stop date) Never Smoker Sex Assigned At : Social History Observation Description Sex Assigned At Unknown Tobacco Use: Question Answer Notes Are you a: never smoker REASON FOR REFERRAL No Information VITAL SIGNS Weight 259.0 lbs Oct, Height 74 in Oct, BMI 33.25 kg/m2 Oct, Blood pressure systolic 124 mm Hg Oct, Blood pressure diastolic 76 mm Hg Oct, MEDICATIONS Medication SIG (Take, Route, Frequency, Duration) Notes Start Da te End Date Status Lipoflavovit Orally Active Cipro 500 mg 1 tablet 1 hour prior to your procedure Orally once May, Not-Taking Albuterol Sulfate (2.5 MG/3ML) 0.083% 3 ml Inhalation Three times a d ay Active Nasonex 50 MCG/ACT 2 sprays in each nostril Nasally Once a day Active Cialis 10 MG 1 tablet Orally Not-Nolan ing Fluticasone-Salmeterol 250-50 MCG/DOSE INHALE 1 PUFF B Y MOUTH TWO TIMES A DAY Inhalation for 90 Active Viagra 50 MG 1 tablet as needed Orally Once a day for 30 day(s) Active Tamsulosin HCl 0.4 MG TAKE ONE CAPSULE BY MOUTH EVERY DAY Oral for 90 Active Clindamycin Phosphate 1 % APPLY TO SCALP DAILY NEEDED External Active Testosterone Cypionate 200 MG/ML (Schedule III Drug) I NJECT 0.6ML INTRAMUSCULARLY ONCE WEEKLY MAX DOSE 0.6ML/WEEK Intramuscular for 49 Active Nitroglycerin 0.[address] ONE TABLET UNDER THE T ONGUE EVERY 5 MINUTES FOR UP TO 3 DOSES NEEDED FOR CHEST PAIN. IF CHEST PAIN STILL PERSISTS CONTACT 911 Sublingual for 25 Active Atorvastatin Calcium 40 MG TAKE ONE TABLET BY MOUTH EVERY DAY Oral fo r 90 Active Carvedilol 3.125 MG TAKE ONE TABLET BY MOUTH TWICE A DAY WIT H FOOD Oral for 90 Active SM Aspirin Adult Low Strength 81 MG TAKE ONE TABLET BY MOUTH EVERY DAY Oral for 30 Not-Taking Lipitor 10 mg 1 tablet Orally Once a day Active Brilinta 90 MG TAKE ONE TABLET BY MOUTH TWICE A DAY Oral for 90 Active Doxycycline Hyclate 50 MG 1 capsule Orally Once a day for 30 day (s) Oct, Active Advair Diskus 500-50 MCG/DOSE 1 puff Inhalation Twice a day Active Magnesium 250 MG 1 tablet with a meal Orally Once a day Active Losartan Potassium 50 MG TAKE ONE TABLET BY MOUTH NIGHTLY Oral for 30 Active PROCEDURES No Information RESULTS No Results REASON FOR VISIT FBSE MEDICAL (GENERAL) HISTORY Type Description Date Medical History Sarcoidosis. Medical History Asthma. Medical History vertigo Surgical History 2 R knee arthroscopy Surgical History laminectomy Surgical History L knee arthroscopy Surgical History Bone out of thumb Surgical History Carpal Tunnel right wrist Surgical History Release of the Ulna nerve Goals Section No Information Health Concerns No Information MEDICAL EQUIPMENT No Information MENTAL STATUS No Information FUNCTIONAL STATUS No Information ASSESSMENTS Encounter Date Diagnosis Assessment Notes Treatment Notes Treatm ent Clinical Notes Oct, Folliculitis (ICD-10 - L73.9) Use RX as above Oct, Screening exam for skin cancer (ICD-10 - Z12.83) Patient counseled on signs and symptoms of skin cancer including ABCDE's of Melanoma. Patient counseled to wear sunscreen or use sun protective clothing when outdoors. Avoid peak hours of sun between 10-2. Patient instructed to call with any new or changing lesions. Oct, Seborrheic keratosis, inflamed (ICD-10 - L82.0) Cryotherapy x [15] number of sites. [place] protocol was followed in compliance with [facility] standards. Patient was counseled regarding the indication for treatment (precancerous state for actinic keratosis or cosmetic reasons if done for seborrheic keratoses, acrochordons or warts) as well as, the method and expected results to include compromise of the skin barrier, bleeding, scarring/white area, redness at site, lesion recurrence, and pain. Patient was consented to the risks and benefits of the procedure and gave informed consent. Lesion(s) with locations as indicated in the physical examination were treated. Lesion(s) were treated with 2 cycles of liquid nitrogen with a thaw time of at least ten seconds. Therapy was applied in a pulsed fashion to minimize collateral tissue injury. Patient was instructed to use Vaseline ointment to the area(s) until healed. Patient tolerated the procedure well and left in stable condition. Pain before and after the procedure were assessed to not be significantly different than baseline. Oct, SK (seborrheic keratosis) (ICD-10 - L82.1) Seborrheic keratoses: Benign, reassurance, Oct, Hx of actinic keratosis (ICD-10 - Z87.2) NER Oct, Hx of squamous cell carcinoma of skin (ICD-10 - Z85.828) History of non-melanoma skin cancer: No evidence of return. Photoprotection encouraged. Oct, Hx of basal cell carcinoma (ICD-10 - Z85.828) History of non-melanoma skin cancer: No evidence of return. Photoprotection encouraged. Oct, Other NER PLAN OF TREATMENT Medication Medication Name Sig Start Date Stop Date Doxycycline Hyclate 50 MG 1 capsule Orally Once a day for 30 day(s) Oct, Clindamycin Phosphate 1 % APPLY TO SCALP DAILY NEEDED Externa l Treatment Notes Assessment Notes Clinical Notes Folliculitis Use RX as above Screening exam for skin cancer Patient c ounseled on signs and symptoms of skin cancer including ABCDE's of Melanoma. Patient counseled to wear sunscreen or use sun protective clothing when outdoors. Avoid peak hours of sun between 10-2. Patient instructed to call with any new or changing lesions. Seborrheic keratosis, inflamed Cryotherapy x [15] numb er of sites. [place] protocol was followed in compliance with [facility] standards. Patient was counseled regarding the indication for treatment (precancerous state for actinic keratosis or cosmetic reasons if done for seborrheic keratoses, acrochordons or warts) as well as, the method and expected results to include compromise of the skin barrier, bleeding, scarring/white area, redness at site, lesion recurrence, and pain. Patient was consented to the risks and benefits of the procedure and gave informed consent. Lesion(s) with locations as indicated in the physical examination were treated. Lesion(s) were treated with 2 cycles of liquid nitrogen with a thaw time of at least ten seconds. Therapy was applied in a pulsed fashion to minimize collateral tissue injury. Patient was instructed to use Vaseline ointment to the area(s) until healed. Patient tolerated the procedure well and left in stable condition. Pain before and after the procedure were assessed to not be significantly different than baseline. SK (seborrheic keratosis) Seborrheic keratoses: Benign, reas surance, Hx of actinic keratosis NER Hx of squamous cell carcinoma of skin History of non-m elanoma skin cancer: No evidence of return. Photoprotection encouraged. Hx of basal cell carcinoma History of non-melanoma ski n cancer: No evidence of return. Photoprotection encouraged. Next Appt Details 6 Months Reason:FBSE Provider Name:Belle Cagle, 2021-05-03 10:15:00 AM, [address], , [place], [place], [facility], Follow Up:6 MonthsFBSE Insurance Providers Payer Name Payer Address Payer Phone Insured Name Patient Relati onship to Insured Coverage Start Date Coverage End Date MEDICARE Part A and B [address] [facility][1] [address] ARIADNE MACHADO self [employer] [address] [facility] [address] [employer] [address] [facility] [address] ARIADNE MACHADO [id number]
--- OUTSIDE RECORDS SUMMARY | 2021-01-26 14:10 | CCD | Continuity of Care Document ---
Author Author Rashid CHIN D.O. Organization Unknown Address [address] [place] [address] Phone [phone] Care Team Providers Care Laborer Hoisting Name Role Phone Grazyna Chin D.O. AUTM Problems Active Problems Provider Date Pure hypercholesterolemia Onset: 014 Epistaxis Grazyna Chin D.O. Onset: 2014 Neoplasm of uncertain behavior of skin Grazyna Chin D.O. Onset: 06/30/2014 Squamous Cell Carcinoma Skin Upper Limb Including Shou lder Grazyna Chin D.O. Onset: 07/02/2014 Bite of nonvenomous arthropod Grazyna Chin D.O. Ons et: 09/08/2014 Cellulitis Grazyna hCin D.O. Onset: 2014 Nonallopathic lesion of the [...] milliliters once a week code f istop [id number] 7ml E29.1 Stephanie BenjaminOLiliana 01/23/2017 Vitamin D3 [...] daily for 4 days istop reference #: [id number] 12tabs R42 Stephanie BenjaminOLiliana 2015 Cetirizine HCL [...] mouth daily Unknown Calcium 600+D High Potency [id number]-Oaja Tablets 1 tab by mouth daily Unknown [...] F O2 % BldC Oximetry 94 % [place] Body Weight 172 lb 11/11/2020 3:47pm BP Systolic 138 mmHg BP Diastolic 84 mmHg Height 71 inches 5'11" Weight 259.00 lb BMI (Body Mass Index) 36.1 kg/m2 Heart Rate 76 /min Respiratory Rate 20 /min Body Temperature 98.4 F O2 % BldC Oximetry 99 % [place] Body Weight 172 lb Results Description No Information Available Procedures Date Code Description Status 01/25/2021 57451 Office/Outpatient Established Mo d MDM 30-39 Min Completed 11/11/2020 81285 Office/Outpatient Established Lo w MDM 20-29 Min Completed 11/11/2020 12089 Omt 9-10 Body Regions Completed Medical Devices Description No Information Available Encounters Type Date Location Provider Dx Diagnosis Office Visit 01/25/2021 3:20p [facility] Medicine [facility] w Stephanie HerreraO. R06.02 Shortness of breath J45.40 Moderate persistent asthma, uncomplicated Office Visit 11/11/2020 3:40p [facility] Grazyna Chin D.OLiliana M54.6 Pain in thoracic [...]
--- OUTSIDE RECORDS SUMMARY | 2021-01-26 14:11 | CCD ---
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 Care Oracle Engineer Name Role Phone FRANCESCA STILL MD Unavailable Unavailable FRANCESCA STILL MD Unavailable Unavailable FRANCESCA STILL MD Unavailable Unavailable FRANCESCA STILL MD Unavailable Unavailable FRANCESCA STILL MD Unavailable Unavailable FRANCESCA STILL MD Unavailable Unavailable FRANCESCA STILL MD Unavailable Unavailable FRANCESCA STILL MD Unavailable Unavailable FRANCESCA STILL MD Unavailable Unavailable FRANCESCA STILL MD Unavailable Unavailable FRANCESCA STILL MD Unavailable Unavailable FRANCESCA STILL MD Unavailable Unavailable FRANCESCA STILL MD Unavailable Unavailable FRANCESCA STILL MD Unavailable Unavailable FRANCESCA STILL MD Unavailable Unavailable FRANCESCA STILL MD Unavailable Unavailable FRANCESCA STILL MD Unavailable Unavailable FRANCESCA STILL MD Unavailable Unavailable FRANCESCA STILL MD Unavailable Unavailable FRANCESCA STILL MD Unavailable Unavailable FRANCESCA STILL MD Unavailable Unavailable FRANCESCA STILL MD Unavailable Unavailable FRANCESCA STILL MD Unavailable Unavailable FRANCESCA STILL MD Unavailable Unavailable FRANCESCA STILL MD Unavailable Unavailable FRANCESCA STILL MD Unavailable Unavailable WILFREDO-SAPPHIRE, TREASURE DO Unavailable Unavailable WILFREDO-SAPPHIRE, TREASURE DO Unavailable Unavailable WILFREDO-SAPPHIRE, TREASURE DO Unavailable Unavailable WILFREDO-SAPPHIRE, TREASURE DO Unavailable Unavailable WILFREDO-SAPPHIRE, TREASURE DO Unavailable Unavailable WILFREDO-SAPPHIRE, TREASURE DO Unavailable Unavailable WILFREDO-SAPPHIRE, TREASURE DO Unavailable Unavailable WILFREDO-SAPPHIRE, TREASURE DO Unavailable Unavailable WILFREDO-SAPPHIRE, TREASURE DO Unavailable Unavailable WILFREDO-SAPPHIRE, TREASURE DO Unavailable Unavailable WILFREDO-SAPPHIRE, TREASURE DO Unavailable Unavailable WILFREDO-SAPPHIRE, TREASURE DO Unavailable Unavailable WILFREDO-SAPPHIRE, TREASURE DO Unavailable Unavailable WILFREDO-SAPPHIRE, TREASURE DO Unavailable Unavailable WILFREDO-SAPPHIRE, TREASURE DO Unavailable Unavailable WILFREDO-SAPPHIRE, TREASURE DO Unavailable Unavailable WILFREDO-SAPPHIRE, TREASURE DO Unavailable Unavailable WILFREDO-SAPPHIRE, TREASURE DO Unavailable Unavailable WILFREDO-SAPPHIRE, TREASURE DO Unavailable Unavailable WILFREDO-SAPPHIRE, TREASURE DO Unavailable Unavailable WILFREDO-SAPPHIRE, TREASURE DO Unavailable Unavailable WILFREDO-SAPPHIRE, TREASURE DO Unavailable Unavailable WILFREDO-SAPPHIRE, TREASURE DO Unavailable Unavailable WILFREDO-SAPPHIRE, TREASURE DO Unavailable Unavailable WILFREDO-SAPPHIRE, TREASURE DO Unavailable Unavailable WILFREDO-SAPPHIRE, TREASURE DO Unavailable Unavailable WILFREDO-SAPPHIRE, TREASURE DO Unavailable Unavailable WILFREDO-SAPPHIRE, TREASURE DO Unavailable Unavailable WILFREDO-SAPPHIRE, TREASURE DO Unavailable Unavailable WILFREDO-SAPPHIRE, TREASURE DO Unavailable Unavailable WILFREDO-SAPPHIRE, TREASURE DO Unavailable Unavailable WILFREDO-SAPPHIRE, TREASURE DO Unavailable Unavailable WILFREDO-SAPPHIRE, TREASURE DO Unavailable Unavailable WILFREDO-SAPPHIRE, TREASURE DO Unavailable Unavailable WILFREDO-SAPPHIRE, TREASURE DO Unavailable Unavailable WILFREDO-SAPPHIRE, TREASURE DO Unavailable Unavailable WILFREDO-SAPPHIRE, TREASURE DO Unavailable Unavailable WILFREDO-SAPPHIRE, TREASURE DO Unavailable Unavailable WILFREDO-SAPPHIRE, TREASURE DO Unavailable Unavailable WILFREDO-SAPPHIRE, TREASURE DO Unavailable Unavailable WILFREDO-SAPPHIRE, TREASURE DO Unavailable Unavailable WILFREDO-SAPPHIRE, TREASURE DO Unavailable Unavailable WILFREDO-SAPPHIRE, TREASURE DO Unavailable Unavailable WILFREDO-SAPPHIRE, TREASURE DO Unavailable Unavailable WILFREDO-SAPPHIRE, TREASURE DO Unavailable Unavailable WILFREDO-SAPPHIRE, TREASURE DO Unavailable Unavailable WILFREDO-SAPPHIRE, TREASURE DO Unavailable Unavailable WILFREDO-SAPPHIRE, TREASURE DO Unavailable Unavailable WILFREDO-SAPPHIRE, TREASURE DO Unavailable Unavailable WILFREDO-SAPPHIRE, TREASURE DO Unavailable Unavailable WILFREDO-SAPPHIRE, TREASURE DO Unavailable Unavailable WILFREDO-SAPPHIRE, TREASURE DO Unavailable Unavailable WILFREDO-SAPPHIRE, TREASURE DO Unavailable Unavailable WILFREDO-SAPPHIRE, TREASURE DO Unavailable Unavailable WILFREDO-SAPPHIRE, TREASURE DO Unavailable Unavailable WILFREDO-SAPPHIRE, TREASURE DO Unavailable Unavailable WILFREDO-SAPPHIRE, TREASURE DO Unavailable Unavailable WILFREDO-SAPPHIRE, TREASURE DO Unavailable Unavailable WILFREDO-SAPPHIRE, TREASURE DO Unavailable Unavailable WILFREDO-SAPPHIRE, TREASURE DO Unavailable Unavailable WILFREDO-SAPPHIRE, TREASURE DO Unavailable Unavailable WILFREDO-SAPPHIRE, RTEASURE DO Unavailable Unavailable WILFREDO-SAPPHIRE, TREASURE DO Unavailable Unavailable WILFREDO-SAPPHIRE, TREASURE DO Unavailable Unavailable WILFREDO-SAPPHIRE, TREASURE DO Unavailable Unavailable WILFREDO-SAPPHIRE, TREASURE DO Unavailable Unavailable WILFREDO-SAPPHIRE, TREASURE DO Unavailable Unavailable WILFREDO-SAPPHIRE, TREASURE DO Unavailable Unavailable WILFREDO-SAPPHIRE, TREASURE DO Unavailable Unavailable WILFREDO-SAPPHIRE, TREASURE DO Unavailable Unavailable WILFREDO-SAPPHIRE, TREASURE DO Unavailable Unavailable WILFREDO-SAPPHIRE, TREASURE DO Unavailable Unavailable WILFREDO-SAPPHIRE, TREASURE DO Unavailable Unavailable WILFREDO-SAPPHIRE, TREASURE DO Unavailable Unavailable WILFREDO-SAPPHIRE, TREASURE DO Unavailable Unavailable WILFREDO-SAPPHIRE, TREASURE DO Unavailable Unavailable WILFREDO-SAPPHIRE, TREASURE DO Unavailable Unavailable WILFREDO-SAPPHIRE, TREASURE DO Unavailable Unavailable WILFREDO-SAPPHIRE, TREASURE DO Unavailable Unavailable WILFREDO-SAPPHIRE, TREASURE DO Unavailable Unavailable WILFREDO-SAPPHIRE, TREASURE DO Unavailable Unavailable WILFREDO-SAPPHIRE, TREASURE DO Unavailable Unavailable WILFREDO-SAPPHIRE, TREASURE DO Unavailable Unavailable WILFREDO-SAPPHIRE, TREASURE DO Unavailable Unavailable Francia LUONG Unavailable Unavailable Francia LUONG MD Unavailable Unavailable Francia Hope MD [facility] Unavailable Chitnis MD, S Subhanir Unavailable Jayy MOSER, S Subhanir Unavailable Jayy MOSER, S Subhanir Unavailable + Jayy MOSER, S Subhanir Unavailable + Jessica Sanchez MD Unavailable Unavailable Jessica Sanchez MD Unavailable Unavailable Jessica Sanchez MD Unavailable Unavailable Jessica Sanchez MD Unavailable Unavailable Jessica Sanchez MD Unavailable Unavailable Jessica Sanchez MD Unavailable Unavailable Jessica Sanchez MD Unavailable Unavailable Jessica Sanchez MD Unavailable Unavailable Jessica Sanchez MD Unavailable Unavailable Jessica Sanchez MD Unavailable Unavailable Jessica Sanchez MD Unavailable Unavailable Jessica Sanchez MD Unavailable Unavailable Jessica Sanchez MD Unavailable Unavailable Jessica Sanchez MD Unavailable Unavailable Jessica Sanchez MD Unavailable Unavailable Jessica Sanchez MD Unavailable Unavailable Jessica Sanchez MD Unavailable Unavailable Jessica Sanchez MD Unavailable Unavailable Jessica Sanchez MD Unavailable Unavailable Jessica Sanchez MD Unavailable Unavailable Jessica Sanchez MD Unavailable Unavailable Jessica Sanchez MD Unavailable Unavailable Jessica Sanchez MD Unavailable Unavailable Jessica Sanchez MD Unavailable Unavailable eJssica Sanchez MD Unavailable Unavailable Jessica Sanchez MD Unavailable Unavailable Jessica Sanchez MD Unavailable Unavailable Jessica Sanchez MD Unavailable Unavailable Jessica Sanchez MD Unavailable Unavailable Jessica Sanchez MD Unavailable Unavailable Jessica Sanchez MD Unavailable Unavailable Jessica Sanchez MD Unavailable Unavailable Jessica Sanchez MD Unavailable Unavailable Jessica Sanchez MD Unavailable Unavailable Jessica Sanchez MD Unavailable Unavailable Jessica Sanchez MD Unavailable Unavailable Jessica Sanchez MD Unavailable Unavailable Jessica Sanchez MD Unavailable Unavailable Jessica Sanchez MD Unavailable Unavailable Jessica Sanchez MD Unavailable Unavailable Jessica Sanchez MD Unavailable Unavailable Jessica Sanchez MD Unavailable Unavailable Jessica Sanchez MD Unavailable Unavailable Jessica Sanchez MD Unavailable Unavailable Jessica Sanchez MD Unavailable Unavailable Jessica Sanchez MD Unavailable Unavailable Jessica Sanchez MD Unavailable Unavailable Jessica Sanchez MD Unavailable Unavailable Jessica Sanchez MD Unavailable Unavailable Jessica Sanchez MD Unavailable Unavailable Jessica Sanchez MD Unavailable Unavailable Jessica Sanchez MD Unavailable Unavailable Jessica Sanchez MD Unavailable Unavailable Jessica Sanchez MD Unavailable Unavailable Jessica Sanchez MD Unavailable Unavailable Jessica Sanchez MD Unavailable Unavailable Jessica Sanchez MD Unavailable Unavailable Re-disclosure Warning The records that you are about to access may contain information from federally-assisted alcohol or drug abuse programs. If such information is present, then the following federally mandated warning applies: This information has been disclosed to you from records protected by federal confidentiality rules (42 CFR part 2). The federal rules prohibit you from making any further disclosure of this information unless further disclosure is expressly permitted by the written consent of the person to whom it pertains or as otherwise permitted by 42 CFR part 2. A general authorization for the release of medical or other information is NOT sufficient for this purpose. The Federal rules restrict any use of the information to criminally investigate or prosecute any alcohol or drug abuse patient.The records that you are about to access may contain highly sensitive health information, the redisclosure of which is protected by Article 27-F of the [facility] Public Health law. If you continue you may have access to information: Regarding HIV / AIDS; Provided by facilities licensed or operated by the [facility] Office of Mental Health; or Provided by the [facility] Office for People With Developmental Disabilities. If such information is present, then the following [facility] mandated warning applies: This information has been disclosed to you from confidential records which are protected by state law. State law prohibits you from making any further disclosure of this information without the specific written consent of the person to whom it pertains, or as otherwise permitted by law. Any unauthorized further disclosure in violation of state law may result in a fine or fdc sentence or both. A general authorization for the release of medical or other information is NOT sufficient authorization for further disc losure. Family History Family Member Name Family Member Gender Family Member Status Date o f Status Description Data Source(s) Unknown Male Problem [facility] ([facility]) Unknown Male Problem [facility] ([facility]) Unknown Female Encounters Encounter Providers Location Date Indications Data Source(s ) Outpatient Attender: TREASURE CHIN DO [facility] 01/25/2021 03:20:00 PM EDT [facility] Outpatient Attender: Jessica Sanchez MD [facility] 12/23/2020 12:00:0 0 AM EDT [facility] Outpatient Attender: TREASURE CHIN DO [facility] 11/11/2020 03:40:00 PM EDT [facility] ([facility]) [place] [address] [facility] [address] 10/26/2020 12:00:00 AM EDT eCW1 ([facility]) [facility]: [facility] 08/19/19 10:16:44 AM EDT - 08/18/2020 11:10:09 AM EDT [facility] Outpatient Attender: TREASURE CHIN [facility] 06/23/2020 08:20:00 AM EST [facility] ([facility]) [place] [address] [address] 04/26/2020 12:00:00 AM EST eCW1 ([facility]) [facility] 03/15/2020 02:37:58 PM EST [facility] Outpatient Attender: TREASURE CHIN [facility] 03/10/2020 08:00:00 AM EST [facility] ([facility]) [facility]: [facility] 03/09/2020 12:00:0 0 AM EST [facility] Outpatient Attender: FRANCESCA STILL MDAtten joni: SIRISHA LUONGAttender: SIRISHA LUONG MDAttender: Carol Hope MDAdmitter: SIRISHA LUONG MD [id number] 02/20/2020 11:32:21 PM EST - 02/21/2020 03:20:00 PM EST [facility] Patient discharged. Outpatient Attender: Jessica Sanchez MD [facility] 02/20/20 12:00:00 AM EST - 02/20/2020 01:48:37 PM EST [facility] Outpatient Attender: TREASURE CHIN [facility] 11/28/2019 10:20:00 AM EDT [facility] ([facility]) Immunizations Vaccine Date Status Description Data Source(s) COVID-19 VACC, MRNA(myVBO)/PF 01/12/2021 12:00:00 AM EDT completed [facility] COVID-19 VACCINE Pfizer 01/12/2021 12:00:00 AM EDT completed [facility] Vaccine Series Complete: YESThis Data wa s Submitted to [facility] Via [facility]RADE. COVID-19 VACCINE [facility] 06/29/2020 12:00:00 AM EDT completed [facility] Vaccine Series Complete: YESThis Data wa s Submitted to [facility] Via NEBOTRADE. COVID-19 VACCINE [facility] 06/08/2020 12:00:00 AM EST completed [facility] Vaccine Series Complete: NOThis Data was Submitted to [facility] Via NEBOTRADE. Medications Medication Brand Name Start Date Product Form Dose Route Admi nistrative Instructions Pharmacy Instructions Status Indications Reaction Description Data Source(s) 240 mcg/0.7 mL 01/12/2021 12:00:00 AM EDT syringe 0 INJECT DIRECTED INJECT DIRECTED SOLD: 01/12/2021 [facility] 0.1 % 01/12/2021 12:00:00 AM EDT drops,suspension 10 INSTILL ONE DROP IN THE RIGHT EYE ONCE DAILY INSTILL ONE DROP IN THE RIGHT EYE ONCE DAILY SOLD: 01/13/2021 [facility] tadalafil 5 MG Oral Tablet Tadalafil 12/23/2020 12:00:00 AM EDT ORAL active [facility] 25 mg 12/15/2020 12:00:00 AM EDT tablet 90 TAKE ONE TABLET BY MOUTH NIGHTLY TAKE ONE TABLET BY MOUTH NIGHTLY SOLD: 12/20/2020 [facility] Tamsulosin hydrochloride 0.4 MG Oral Capsule tamsulosi n (FLOMAX) 0.4 MG CAPS tamsulosin (FLOMAX) 0.4 MG CAPS 12/13/2020 12:00:00 AM EDT 0.4 mg O ral active Take 0.4 mg by mouth daily [facility] Losartan Potassium 25 MG Oral Tablet losartan (COZAAR) 25 MG tablet losartan (COZAAR) 25 MG tablet 12/09/2020 12:00:00 AM EDT 25 mg Oral active Take 1 tablet (25 mg total) by mouth nightly [facility] 0.3 ML Epinephrine 1 MG/ML Auto-Injector [Epipen] Epipen 2-P ak 11/01/2020 12:00:00 AM EDT active M [facility]ENT ([facility]) 0.3 mg/0.3 mL 11/01/2020 12:00:00 AM EDT auto-injector 2 INJECT ONCE IN ANTEROLATERAL THIGH, MAY REPEAT AFTER 5-15 MINUTES IF SYMPTOMS PERSIST INJECT ONCE IN ANTEROLATERAL THIGH, MAY REPEAT AFTER 5-15 MINUTES IF SYMPTOMS PERSIST SOLD: 11/03/2020 [facility] EPINEPHrine (EPIPEN) 0.3 MG/0.3ML [facility] [id number] 11/01/2020 12:00:00 A M EDT active INJECT ONCE IN ANTEROLATERAL THIGH MAY REPEAT AFTER 5 15 MINUTES IF SYMPTOMS PERSIST [facility] doxycycline hyclate 50 MG Oral Capsule doxycycline ( BRAMYCIN) 50 MG capsule doxycycline (VIBRAMYCIN) 50 MG capsule 10/26/2020 12:00:00 AM EDT 5 0 mg Oral active Take 50 mg by mouth daily [facility] doxycycline hyclate 50 MG Oral Capsule DOXYCYCLINE HYCLATE 0 10/26/2020 12:00:00 AM EDT capsule 30 TAKE ONE CAPSULE BY MOUTH EV JOSE A DAY TAKE ONE CAPSULE BY MOUTH EVERY DAY SOLD: 10/27/2020 [facility] 100 mg 10/26/2020 12:00:00 AM EDT tablet 26 TAKE 1 TABLET BY MOUTH DAILY BEFORE SEXUAL ACTIVITY NEEDED TAKE 1 TABLET BY MOUTH DAILY BEFORE SEXU AL ACTIVITY NEEDED SOLD: 10/27/2020 [facility] doxycycline hyclate 50 MG Oral Capsule Doxycycline Hyc late 50 MG Doxycycline Hyclate 50 MG 10/26/2020 12:00:00 AM EDT 1.0 {capsule} active Doxycycline Hyclate 50 MG eCW1 ([facility]) doxycycline hyclate 50 MG Oral Capsule DOXYCYCLINE HYCLATE 0 10/26/2020 12:00:00 AM EDT capsule 30 TAKE ONE CAPSULE BY MOUTH EV JOSE A DAY TAKE ONE CAPSULE BY MOUTH EVERY DAY SOLD: 01/12/2021 [facility] 50 mg 10/06/2020 12:00:00 AM EDT tablet 60 TAKE ONE TABLET BY MOUTH TWICE A DAY NEEDED MAXIMUM DAILY DOSE = 2 TABLETS TAKE ONE TABLET BY MOUTH TWICE A DAY NEEDED MAXIMUM DAILY DOSE = 2 TABLETS SOLD: 10/09/2020 [facility] 90 mg 09/17/2020 12:00:00 AM EDT tablet 180 TAKE ONE TABLET BY MOUTH TWICE A DAY TAKE ONE TABLET BY MOUTH TWICE A DAY SOLD: 12/20/2020 [facility] 90 mg 09/17/2020 12:00:00 AM EDT tablet 180 TAKE ONE TABLET BY MOUTH TWICE A DAY TAKE ONE TABLET BY MOUTH TWICE A DAY SOLD: 09/18/2020 [facility] 0.4 mg 09/15/2020 12:00:00 AM EDT capsule 90 TAKE ONE CAPSULE BY MOUTH EVERY DAY TAKE ONE CAPSULE BY MOUTH EVERY DAY SOLD: 09/18/2020 [facility] 0.4 mg 09/15/2020 12:00:00 AM EDT capsule 90 TAKE ONE CAPSULE BY MOUTH EVERY DAY TAKE ONE CAPSULE BY MOUTH EVERY DAY SOLD: 12/20/2020 [facility] carvedilol 3.125 MG Oral Tablet CARVEDILOL 09/13/2020 12:00:00 AM EDT tablet 180 TAKE ONE TABLET BY MOUTH TWICE A DAY WIT H MEALS TAKE ONE TABLET BY MOUTH TWICE A DAY WITH MEALS SOLD: 12/20/2020 [facility] carvedilol 3.125 MG Oral Tablet CARVEDILOL 09/13/2020 12:00:00 AM EDT tablet 180 TAKE ONE TABLET BY MOUTH TWICE A DAY WIT H MEALS TAKE ONE TABLET BY MOUTH TWICE A DAY WITH MEALS SOLD: 09/15/2020 [facility] 50 mg 08/08/2020 12:00:00 AM EDT tablet 90 TAKE ONE TABLET BY MOUTH EVERY EVENING TAKE ONE TABLET BY MOUTH EVERY EVENING SOLD: 08/09/2020 [facility] atorvastatin 40 MG Oral Tablet ATORVASTATIN CALCIUM 07/19/2020 1 2:00:00 AM EDT tablet 58 TAKE ONE TABLET BY MOUTH EVERY D AY TAKE ONE TABLET BY MOUTH EVERY DAY SOLD: 10/22/2020 [facility] atorvastatin 40 MG Oral Tablet ATORVASTATIN CALCIUM 07/19/2020 1 2:00:00 AM EDT tablet 90 TAKE ONE TABLET BY MOUTH EVERY D AY TAKE ONE TABLET BY MOUTH EVERY DAY SOLD: 07/21/2020 [facility] atorvastatin 40 MG Oral Tablet atorvastatin (LIPITOR) 40 MG tablet atorvastatin (LIPITOR) 40 MG tablet 07/19/2020 12:00:00 AM EDT 40 mg Oral active Take 1 tablet (40 mg total) by mouth daily [facility] Ticagrelor 90 MG Oral Tablet ticagrelor (BRILINTA) 90 MG TABS ticagrelor (BRILINTA) 90 MG TABS 07/19/2020 12:00:00 AM EDT 90 mg Oral active Take 1 tablet (90 mg total) by mouth 2 (two) times a day [facility] carvedilol 3.125 MG Oral Tablet carvedilol (COREG) 3.1 25 MG tablet carvedilol (COREG) 3.125 MG tablet 07/19/2020 12:00:00 AM EDT 3.125 mg Oral active Take 1 tablet (3.125 mg total) by mouth 2 (two) times a day with meals [facility] atorvastatin 40 MG Oral Tablet ATORVASTATIN CALCIUM 07/19/2020 1 2:00:00 AM EDT tablet 90 TAKE ONE TABLET BY MOUTH EVERY D AY TAKE ONE TABLET BY MOUTH EVERY DAY SOLD: 12/20/2020 [facility] 200 mg/mL 06/24/2020 12:00:00 AM EST oil 7 INJECT 0.6ML ONCE WEEKLY DIRECTED * MAXIMUM DAILY DOSE = 0.6ML /WEEK INJECT 0.6ML ONCE WEEKLY DIRECTED * MAXIMUM DAILY DOSE = 0.6ML /WEEK SOLD: 06/26/2020 [facility] 50 mg 03/16/2020 12:00:00 AM EST tablet 30 TAKE ONE TABLET BY MOUTH NIGHTLY TAKE ONE TABLET BY MOUTH NIGHTLY SOLD: 06/11/2020 [facility] 50 mg 03/16/2020 12:00:00 AM EST tablet 30 TAKE ONE TABLET BY MOUTH NIGHTLY TAKE ONE TABLET BY MOUTH NIGHTLY SOLD: 03/18/2020 [facility] 50 mg 03/16/2020 12:00:00 AM EST tablet 30 TAKE ONE TABLET BY MOUTH NIGHTLY TAKE ONE TABLET BY MOUTH NIGHTLY SOLD: 07/15/2020 [facility] 50 mg 03/16/2020 12:00:00 AM EST tablet 30 TAKE ONE TABLET BY MOUTH NIGHTLY TAKE ONE TABLET BY MOUTH NIGHTLY SOLD: 04/14/2020 [facility] 50 mg 03/16/2020 12:00:00 AM EST tablet 30 TAKE ONE TABLET BY MOUTH NIGHTLY TAKE ONE TABLET BY MOUTH NIGHTLY SOLD: 05/10/2020 [facility] 50 mg 03/12/2020 12:00:00 AM EST tablet 14 TAKE ONE TABLET BY MOUTH TWICE A DAY NEEDED * MAXIMUM DAILY DOSE = 2 TAKE ONE TABLET BY MOUTH TWICE A DAY NEEDED * MAXIMUM DAILY DOSE = 2 SOLD: 03/15/2020 [facility] 250-50 mcg/dose 03/12/2020 12:00:00 AM EST blister with destinee ce 180 INHALE 1 PUFF BY MOUTH TWO TIMES A DAY INHALE 1 PUFF BY MOUTH TWO TIMES A DAY SOLD: 03/15/2020 [facility] 3 mL 22 gauge x 1" 03/12/2020 12:00:00 AM EST syringe 7 USE TO INJECT TESTOSTERONE USE TO INJECT TESTOSTERONE SOLD: 03/15/2020 [facility] 0.4 mg 03/12/2020 12:00:00 AM EST capsule 90 TAKE ONE CAPSULE BY MOUTH EVERY DAY TAKE ONE CAPSULE BY MOUTH EVERY DAY SOLD: 06/11/2020 [facility] 200 mg/mL 03/12/2020 12:00:00 AM EST oil 7 INJECT 0.6ML INTRAMUSCULARLY ONCE WEEKLY * MAX DOSE 0.6ML/WEEK INJECT 0.6ML INTRAMUSCULARLY ONCE WEEKLY * MAX DOSE 0.6ML/WEEK SOLD: 03/15/2020 [facility] 0.4 mg 03/12/2020 12:00:00 AM EST capsule 90 TAKE ONE CAPSULE BY MOUTH EVERY DAY TAKE ONE CAPSULE BY MOUTH EVERY DAY SOLD: 03/15/2020 [facility] 10 mg 03/10/2020 12:00:00 AM EST tablet 12 TAKE ONE TABLET BY MOUTH THREE TIMES A DAY FOR 4 DAYS * MAXIMUM DAILY DOSE = 3 TAKE ONE TABLET BY MOUTH THREE TIMES A DAY FOR 4 DAYS * MAXIMUM DAILY DOSE = 3 SOLD: 03/12/2020 [facility] Aspirin 81 MG Delayed Release Oral Tablet [Ecotrin] Ecotrin Low Strength 03/10/2020 12:00:00 AM EST completed [facility] ([facility]) technetium sestamibi (CARDIOLITE) injection 11.1 millicurie 02/21/2020 02:00:00 PM EST 11.1 mCi Intravenous completed 11.1 millicurie, Intravenous, Once, 02/21/20 at 1400, For 1 dose [facility] Medication administered onsite technetium sestamibi (CARDIOLITE) injection 34 millicurie 02/21/2020 02:00:00 PM EST 34 mCi Intravenous completed 34 millicurie, Intravenous, Once, 02/21/20 at 1400, For 1 dose [facility] Medication administered onsite Fluorometholone 1 MG/ML Ophthalmic Suspe nsion fluorometholone (FML) 0.1 % ophthalmic suspension 1 drop fluorometholone (FML) 0.1 % ophthalmic s uspension 1 drop 02/21/2020 09:00:00 AM EST 1 [drp] active 1 drop, Right Eye, 4 times daily, First dose on 02/21/20 at 0900 [facility] Medication administered onsite atorvastatin 40 MG Oral Tablet atorvastatin (LIPITOR) tablet 40 mg atorvastatin (LIPITOR) tablet 40 mg 02/21/2020 09:00:00 AM EST 40 mg Oral active 40 mg, Oral, Daily, First dose on 02/21/20 at 0900 [facility] Medication administered onsite Aspirin 81 MG Delayed Release Oral Tablet aspirin EC t ablet 81 mg aspirin EC tablet 81 mg 02/21/2020 09:00:00 AM EST 81 mg Oral activ e 81 mg, Oral, Daily, First dose on 02/21/20 at 0900 [facility] Medication administered onsite 60 ACTUAT formoterol fumarate 0.005 MG/A CTUAT / mometasone furoate 0.2 MG/ACTUAT Metered Dose Inhaler mometasone-formoterol (DULERA) 200-5 MCG/ACT inhaler 2 puff mometasone-formoterol (DULERA) 200-5 MCG/ACT inhaler 2 puff 02/21/2020 08:00:00 AM EST 2 {puff} Inhalation active 2 puff, Inhalation, 2 times daily, First dose on 02/21/20 at 0800 [facility] Medication administered onsite Ticagrelor 90 MG Oral Tablet ticagrelor (BRILINTA) tab let 90 mg ticagrelor (BRILINTA) tablet 90 mg 02/21/2020 01:45:00 AM EST 90 mg Oral active 90 mg, Oral, 2 times daily, First dose on 02/21/20 at 0145 [facility] Medication administered onsite regadenoson (LEXISCAN) solution 0.4 mg [id number] 02/21/2020 01:4 0:00 AM EST 0.4 mg Intravenous completed 0.4 mg, Intravenous, Once, 02/21/20 at 0140, For 1 dose, [employer]
No Caffeine, Theophylline, or Dipyridamole (Aggrenox) for 12 hours prior to dose. If patient has had any of these, contact MD immediately
[facility] Medication administered onsite Albuterol 0.83 MG/ML Inhalant Solution a lbuterol (PROVENTIL) nebulizer solution 2.5 mg albuterol (PROVENTIL) nebulizer solution 2.5 mg 2019 01:25:19 AM EST 2.5 mg active 2.5 mg, Nebulization, RT every 4 hours as needed, wheezing, shortness of breath, Starting 02/21/20 at 0125 [facility] Medication administered onsite Aspirin 81 MG Chewable Tablet aspirin chewable tablet 162 mg aspirin chewable tablet 162 mg 02/21/2020 12:05:00 AM EST 162 mg Oral comp leted 162 mg, Oral, Once, 02/21/20 at 0005, For 1 dose [facility] Medication administered onsite Nitroglycerin 0.02 MG/MG Topical Ointmen t nitroglycerin (NITROSTAT) 2 % ointment 0.5 inch nitroglycerin (NITROSTAT) 2 % ointment 0.5 inch 2019 12:05:00 AM EST 0.5 g Topical completed 0.5 in ch (0.5 g), Topical, Once, 02/21/20 at 0005, For 1 dose
1 inch = 1 gram
[facility] Medication administered onsite 10 ML Atropine Sulfate 0.1 MG/ML Prefill ed Syringe atropine sulfate injection 0.5 mg atropine sulfate injection 0.5 mg 02/20/2020 11:58:25 PM EST 0.5 mg active 0.5 mg, Intrave nous Push, Every 5 min PRN, other, As needed, for heart rate less than 60 BPM and the patient is hemodynamically unstable and/or SBP is less than 90mmHg, Starting Sun02/20/20 at 2358, For 1 day
Not to exceed a total of 3 mg or 0.04 mg/kg. Max of 6 doses
[facility] Medication administered onsite Tamsulosin hydrochloride 0.4 MG Oral Capsule Tamsulosin HCL 02/17/2020 12:00:00 AM EST active [facility] ([facility]) atorvastatin 40 MG Oral Tablet ATORVASTATIN CALCIUM 02/04/2020 1 2:00:00 AM EDT tablet 90 TAKE ONE TABLET BY MOUTH EVERY D AY TAKE ONE TABLET BY MOUTH EVERY DAY SOLD: 02/06/2020 [facility] atorvastatin 40 MG Oral Tablet ATORVASTATIN CALCIUM 02/04/2020 1 2:00:00 AM EDT tablet 90 TAKE ONE TABLET BY MOUTH EVERY D AY TAKE ONE TABLET BY MOUTH EVERY DAY SOLD: 05/10/2020 [facility] atorvastatin 40 MG Oral Tablet atorvastatin (LIPITOR) 40 MG tablet atorvastatin (LIPITOR) 40 MG tablet 02/04/2020 12:00:00 AM EDT 40 mg Oral active Take 1 tablet (40 mg total) by mouth daily [facility] 1 % 12/16/2019 12:00:00 AM EDT foam 50 APPLY TO SCALP DAILY NEEDED APPLY TO SCALP DAILY NEEDED SOLD: 12/16/2019 [facility] 1 % 12/16/2019 12:00:00 AM EDT foam 50 APPLY TO SCALP DAILY NEEDED APPLY TO SCALP DAILY NEEDED SOLD: 07/02/2020 [facility] 90 mg 12/10/2019 12:00:00 AM EDT tablet 180 TAKE ONE TABLET BY MOUTH TWICE A DAY TAKE ONE TABLET BY MOUTH TWICE A DAY SOLD: 03/15/2020 [facility] 90 mg 12/10/2019 12:00:00 AM EDT tablet 180 TAKE ONE TABLET BY MOUTH TWICE A DAY TAKE ONE TABLET BY MOUTH TWICE A DAY SOLD: 12/16/2019 [facility] 90 mg 12/10/2019 12:00:00 AM EDT tablet 180 TAKE ONE TABLET BY MOUTH TWICE A DAY TAKE ONE TABLET BY MOUTH TWICE A DAY SOLD: 06/16/2020 [facility] 90 mg 12/10/2019 12:00:00 AM EDT tablet 14 TAKE ONE TABLET BY MOUTH TWICE A DAY TAKE ONE TABLET BY MOUTH TWICE A DAY SOLD: 12/10/2019 [facility] carvedilol 3.125 MG Oral Tablet CARVEDILOL 12/04/2019 12:00:00 AM EDT tablet 180 TAKE ONE TABLET BY MOUTH TWICE A DAY WIT H FOOD TAKE ONE TABLET BY MOUTH TWICE A DAY WITH FOOD SOLD: 03/15/2020 [facility] 0.1 % 12/04/2019 12:00:00 AM EDT drops,suspension 10 INSTILL ONE DROP IN THE RIGHT EYE ONCE DAILY INSTILL ONE DROP IN THE RIGHT EYE ONCE DAILY SOLD: 12/10/2019 [facility] carvedilol 3.125 MG Oral Tablet CARVEDILOL 12/04/2019 12:00:00 AM EDT tablet 180 TAKE ONE TABLET BY MOUTH TWICE A DAY WIT H FOOD TAKE ONE TABLET BY MOUTH TWICE A DAY WITH FOOD SOLD: 06/16/2020 [facility] carvedilol 3.125 MG Oral Tablet CARVEDILOL 12/04/2019 12:00:00 AM EDT tablet 180 TAKE ONE TABLET BY MOUTH TWICE A DAY WIT H FOOD TAKE ONE TABLET BY MOUTH TWICE A DAY WITH FOOD SOLD: 12/10/2019 [facility] carvedilol 3.125 MG Oral Tablet carvedilol (COREG) 3.1 25 MG tablet carvedilol (COREG) 3.125 MG tablet 12/03/2019 12:00:00 AM EDT 3.125 mg Oral active Take 1 tablet (3.125 mg total) by mouth 2 (two) times a day with meals [facility] Ticagrelor 90 MG Oral Tablet ticagrelor (BRILINTA) 90 MG TABS ticagrelor (BRILINTA) 90 MG TABS 12/03/2019 12:00:00 AM EDT 90 mg Oral active Take 1 tablet (90 mg total) by mouth 2 (two) times a day [facility] Cephalexin 500 MG Oral Capsule CEPHALEXIN 11/27/2019 12:00:00 AM EDT capsule 21 TAKE ONE CAPSULE BY MOUTH THREE TIMES A DAY UNTIL GONE TAKE ONE CAPSULE BY MOUTH THREE TIMES A DAY UNTIL GONE SOLD: 11/27/2019 [facility] Cephalexin 500 MG Oral Capsule Cephalexin 11/27/2019 12:00:00 AM EDT ORAL completed [facility] ([facility]) Aspirin 81 MG Delayed Release Oral Tablet aspirin 81 M G EC tablet aspirin 81 MG EC tablet 06/06/2019 12:00:00 AM EST 81 mg Oral aborted Take 1 tablet (81 mg total) by mouth daily [facility] 24 HR Testosterone 0.0833 MG/HR Transdermal Patch Test osterone 2 MG/24HR PT24 Testosterone 2 MG/24HR PT24 2.[address] 2.5 mg on the skin [facility] Insurance Providers Payer name Policy type / Coverage type Policy ID Covered constitution party ID Covered constitution party's relationship to garces Policy Garces Plan Information [facility] [id number] WI2 [id number] [facility] [id number] WI2 [id number] [place] 306/806 [id number] WI2 [id number] [employer] [place] [id number] SP [id number] [place] 306/806 [id number] SP [id number] [place] 306/806 [id number] SP [id number] [employer] [id number] SP [id number] [place]PO 302/307 [id number] WI2 [id number] [employer] INSURANCE CO [id number] SP [id number] MEDICARE [id number] xxxxxxxxxxx [id number] MEDICARE [id number] [facility] [id number] EXCELLUS H [id number] Self [id number] [facility] Incap [id number] Family Dependent HVL [id number] U/W Commercial [id number] Family Dependent HVL [id number] [facility] Commercial 411 Family Dependen t [facility] Incap [id number] Family Dependent HVL [id number] [employer] U/W Commercial [id number] Family Dependent HVL [id number] [place] [id number] [facility] [id number] [place] [employer] U/W Commercial [id number] Family Dependent HVL [id number] [place] [employer] [employer] Commercial [id number] Family Dependent HVL [id number] aL [employer] U/W Commercial [id number] Family Dependent HVL [id number] [facility] [id number] Family Dependent HVL [id number] La [employer] U/W Commercial [id number] Family Dependent HVL [id number] [place] U/W Commercial [id number] Family Dependent HVL [id number] [place] [employer] U/W Commercial [id number] .[id number] Family Dependent HVL [id number] [place] U[employer] Commercial [id number] Family Dependent HVL [id number] [place] [employer] Commercial [id number] Family Dependent HVL [id number] La [place] U/W Commercial [id number] .[id number] Family Dependent HVL [id number] [facility] [id number] .[id number] Family Dependent HVL [id number] [facility] [id number] .[id number] Family Dependent HVL [id number] [facility] [id number] .[id number] Family Dependent HVL [id number] [facility] [id number] Family Dependent HVL [id number] [employer] [id number] SP [id number] CIGNA [id number] xxxxxxxxxxx [id number] CIGNA [id number] Charlette [id number] MVP HEALTH CARE [id number] SP [id number] [place] BCBS P UNAVAILABLE P UNAV AILABLE MEDICARE [id number] SP [id number] [employer] HE[employer] [id number] WI2 U [id number] [employer] HEALTHCARE [id number] WI2 U [id number] CIGNA/MVP/CONN GEN/PREFE O [id number] S [id number] [employer] INSURANCE CO [id number] SP [id number] SELF PAY ONLY [employer]UR[employer] CO O [id number] S [id number] [facility] Commercial [id number] Self VYA [id number] [facility] Commercial [id number] .[id number] Self VYA [id number] [facility] Commercial [id number] Self VYA [id number] [facility] Commercial [id number] [id number] Self VYA [id number] [facility] Commercial [id number] [id number] Self VYA [id number] [facility] Commercial [id number] [id number] Self VYA [id number] [facility] [id number] [id number] Self VYA [id number] [facility] Commercial [id number] [id number] Self VYA [id number] [facility] Commercial [id number] [id number] Self VYA [id number] [facility] [id number] [id number] Self VYA [id number] [facility] Commercial [id number] [id number] Self VYA [id number] [place] [facility] B [id number] P HVL [id number] [facility] Commercial [id number] [id number] Self VYA [id number] [place] [employer] [id number] Self VYA [id number] [place] [employer] [id number] Self VYA [id number] [place] [employer] [employer] [id number] [id number] Self VYA [id number] [place] [employer] [employer] [id number] Self VYA [id number] [place] [employer] [employer] [id number] Self VYA [id number] [place] [employer] [id number] Self VYA [id number] [facility] Commercial [id number] Self BS [place] Medigap Part [id number] Self BS [place] Commercial [id number] Family Dependent [place] BCBS P [id number] P VYA [id number] [facility] [id number] Problems, Conditions, and Diagnoses Code Display Name Description Problem Type Effective Dates Data Source(s) I10 Essential (primary) hypertension Essential (primary) h ypertension Diagnosis 12/23/2020 10:14:13 AM EDT [facility] I25.10 Atherosclerotic heart diseas e of [place] coronary artery without angina pectoris Atherosclerotic heart disease of [place] Diagnosis 12/23/2020 10:14:13 AM EDT [facility] R06.02 Shortness of breath Shortness of breath Diagnosis 0 08/18/2020 10:16:44 AM EDT [facility] D86.9 Sarcoidosis, unspecified Sarcoidosis, unspecified Diag nosis 08/18/2020 10:16:44 AM EDT [facility] R07.2 Precordial pain Precordial pain Diagnosis 02/20/2020 11:3 2:21 PM [facility] I20.8 Other forms of angina pectoris Other forms of angina p ectoris Diagnosis 02/20/2020 11:47:53 AM [facility] J45.40 Moderate persistent asthma Moderate persistent asthma Problem 01/25/2021 12:00:00 AM EDT [facility] ([facility]) I10 Hypertension, benign Hypertension, benign [id number] 12/23/2020 12:00:00 AM EDT [facility] Z12.83 [id number] Screening exam for skin cancer Problem 10/25/2020 12:00:00 AM EDT eCW1 ([facility]) J45.909 Asthma Asthma [id number] 02/21/2020 12:00:00 AM ES T [facility] D86.9 Sarcoidosis Sarcoidosis [id number] 02/21/2020 12:00:00 AM [facility] R07.2 Chest pain, precordial Chest pain, precordial [id number] 02/21/2020 12:00:00 AM [facility] C44.90 Skin cancer Skin cancer [id number] 02/20/2020 12:00:00 AM [facility] Surgeries/Procedures Procedure Description Date Indications Data Source(s) OFFICE OUTPATIENT VISIT 25 MINUTES 01/25/2021 12:00:00 AM EDT [facility] ([facility]) Omt 9-10 Body Regions 11/11/2020 12:00:00 AM EDT [facility] ([facility]) OFFICE OUTPATIENT VISIT 15 MINUTES 11/11/2020 12:00:00 AM EDT [facility] ([facility]) Omt 7-8 Body Regions 06/23/2020 12:00:00 AM EST [facility] ([facility]) OFFICE OUTPATIENT VISIT 15 MINUTES 06/23/2020 12:00:00 AM EST [facility] ([facility]) Omt 7-8 Body Regions 03/10/2020 12:00:00 AM EST [facility] ([facility]) MYOCARDIAL SPECT MULTIPLE STUDIES <td>NM CARDIAC GATED SPEC IMG EFWM</td><td>Routine</td><td>02/21/2020 12:54 PM EST</td><td></td><td> </td> 02/21/2020 05:54:18 PM EST [facility] CV STRS TST XERS&/OR RX CONT ECG PHYS SI&R <td>STRESS TEST, CARDIOVASCULAR</td><td>Routine</td><td>02/21/2020 11:45 AM EST</td><td></td><td></td> 02/21/2020 04:45:55 PM EST [facility] ECHO TTHRC R-T 2D W/WOM-MODE COMPL SPEC&COLR DOP <td>E CHOCARDIOGRAM TRANSTHORACIC</td><td>Routine</td><td>02/21/2020 9:51 AM EST</td><td></td><td> </td> 02/21/2020 02:51:40 PM EST [facility] ECG ROUTINE ECG W/LEAST 12 LDS TRCG ONLY W/O I&R <td>E CG 12- LEAD</td><td>Routine</td><td>02/21/2020 8:13 AM EST</td><td></td><td></td> 02/21/2020 01:13:45 PM EST [facility] TROPONIN QUANTITATIVE <td>TROPONIN I</td><td>STAT< /td><td>02/21/2020 7:21 AM EST</td><td></td><td> </td> 02/21/2020 12:21:00 PM EST [facility] CT THORAX W/O CONTRAST MATERIAL <td>CT CHEST WO CONTRAST</td><td>Routine</td><td>02/21/2020 2:31 AM EST</td><td></td><td> </td> 02/21/2020 07:31:25 AM EST [facility] CV STRS TST XERS&/OR RX CONT ECG PHYS SI&R <td>STRESS TEST, CARDIOVASCULAR</td><td>Routine</td><td>02/21/2020 1:24 AM EST</td><td></td><td></td> 02/21/2020 06:24:57 AM EST [facility] XR CHEST PA AND LATERAL <td>XR CHEST PA AND LATERAL</td><td>STAT</td><td>02/20/2020 4:49 PM EST</td><td></td><td> </td> 02/20/2020 09:49:26 PM EST [facility] TROPONIN QUANTITATIVE <td>POCT TROPONIN</td><td>Ro utine</td><td>02/20/2020 2:04 PM EST</td><td></td><td> </td> 02/20/2020 07:04:00 PM EST [facility] ECG ROUTINE ECG W/LEAST 12 LDS TRCG ONLY W/O I&R <td>E CG 12- LEAD</td><td>STAT</td><td>02/20/2020 1:43 PM EST</td><td></td><td></td> 02/20/2020 06:43:44 PM EST [facility] NT PRO BNP <td>NT PRO BNP</td><td>STAT< /td><td>02/20/2020 1:43 PM EST</td><td></td><td> </td> 02/20/2020 06:43:00 PM EST [facility] THROMBOPLASTIN TIME PARTIAL PLASMA/WHOLE BLOOD <td>APTT</td><td>STAT</td><td>02/20/2020 1:43 PM EST</td><td></td><td> </td> 02/20/2020 06:43:00 PM EST [facility] PROTHROMBIN TIME <td>PROTIME-INR</td><td>STAT </td><td>02/20/2020 1:43 PM EST</td><td></td><td> </td> 02/20/2020 06:43:00 PM EST [facility] BLOOD COUNT COMPLETE AUTO&AUTO DIFRNTL WBC COUNT <td>C BC AND DIFFERENTIAL</td><td>STAT</td><td>02/20/2020 1:43 PM EST</td><td></td><td> </td> 02/20/2020 06:43:00 PM EST [facility] COMPREHENSIVE METABOLIC PANEL <td>COMPREHENSIVE METABO LIC PANEL</td><td>STAT</td><td>02/20/2020 1:43 PM EST</td><td></td><td> </td> 02/20/2020 06:43:00 PM EST [facility] ECG ROUTINE ECG W/LEAST 12 LDS W/I&R <td>POCT AMB EKG</td><td>Routine</td><td>02/20/2020 1:10 PM EST</td><td> Angina at rest</td><td> </td> 02/20/2020 06:10:00 PM EST Angina at rest [facility] Angina at rest Omt 7-8 Body Regions 11/28/2019 12:00:00 AM EDT [facility] ([facility]) Results ID Date Data Source [id number] 03/15/2020 02:37:58 PM EST [facility] NT INFORMATIONPatient MRN Name Date of Age Gend*PT [id number] Rashid Machado 1950 70 years M ---PT Location Admission Date/Time Visit ID Attending Provider --- --- --- --- EPI ID CSN Admitting Provider [id number] ---Addended by: JESSICA SANCHEZ on: 03/15/2020 02:37 PM Modules accepted: Orders Name Value Range Interpretation Code Description Data Pascale rce(s) Supporting Document(s) ID Date Data Source [id number] 02/21/2020 05:36:37 PM EST [facility] NT INFORMATIONPatient MRN Name Date of Age Gend*PT [id number] Rashid Machado 1950 70 years M OBSPT Location Admission Date/Time Visit ID Attending [id number] 02/20/20 2332 --- --- EPI ID CSN Admitting Provider [id number] Sirisha Luong MD([id number]) Attestation signed by Francesca Still MD at 02/21/2020 5:36 PMI saw and evaluated the patient and reviewed PA's note. I agree with thehistory, physical and medical decision making with the following additions,exceptions, and/or observations:noneSignature: Francesca Still MDDate: February 21, 2020Time: 5:36 PM -- [facility] DISCHARGE SUMMARYPatient Name: Rashid Machado of : 1950 Age 70 yearsPrimary Physician: TREASURE LEARY DO PCP Nkgcmsmtm Date: 02/20/2020 Discharge Date: 02/21/2020 02/21/2020He will be discharged from [facility] to [facility] Diagnoses:Principal Problem: Chest pain to rule out ACSActive Problems: Sarcoidosis Asthma Coronary artery disease Pure hypercholesterolemia Skin cancerResolved Problems: * No resolved hospital problems. *Discharge Medications:Discharge Medication List as of 02/21/2020 1:56 PMCONTINUE these medications which have NOT CHANGED Detailsalbuterol (PROVENTIL HFA;VENTOLIN HFA) 108 (90 Base) MCG/ACT inhaler Inhale 2puffs every 4 (four) hours as needed for wheezing or shortness of breath,Historical Medaspirin 81 MG EC tablet Take 1 tablet (81 mg total) by mouth daily, Starting Sun06/06/2019, E- Prescribeatorvastatin (LIPITOR) 40 MG tablet Take 1 tablet (40 mg total) by mouth daily,Starting Sun02/04/2020, E-Prescribecarvedilol (COREG) 3.125 MG tablet Take 1 tablet (3.125 mg total) by mouth 2(two) times a day with meals, Starting Sun12/03/2019, E-Prescribecholecalciferol (VITAMIN D3) 25 MCG (1000 UT) capsule Take 2,000 Units by mouthdaily, Historical Medfluorometholone (FML) 0.1 % ophthalmic suspension Administer 1 drop to the righteye every 4 (four) hours, Historical MedMagnesium Oxide (MAG-OX) 400 MG tablet Take 400 mg by mouth daily, HistoricalMednitroglycerin (NITROSTAT) 0.[address] 1 tablet (0.4 mg total) underthe tongue every 5 (five) minutes as needed for chest pain, Starting Sun06/06/2019, E-Prescribesildenafil (VIAGRA) 50 MG tablet Take 50 mg by mouth daily as needed forerectile dysfunction, Historical Medticagrelor (BRILINTA) 90 MG TABS Take 1 tablet (90 mg total) by mouth 2 (two)times a day, Starting Sun12/03/2019, V-Ksfmjkbiuskusufmcizx-afypozwjqk (ADVAIR DISKUS) 250-50 MCG/DOSE DISKUS Inhale 1 puffdaily, Starting Sun02/07/2016, Historical MedTestosterone 2 MG/24HR PT24 Place 2.5 mg on the skin, Historical MedtraMADol (ULTRAM) 50 MG tablet Take 50 mg by mouth every 6 (six) hours as neededfor pain, Historical MedFollow Up Instructions:The patient was given an after visit summary.Patient will follow up with PCP in 7-10 days.Items needing special attention: NoneBrief Hospital Course:This is a 70 year old male with history of asthma, [facility], [facility] account leader office due to chest pain. He reportsintermittent chest discomfort for a few weeks, with an episode this week thatwas more sustained, approximately 20 minutes, mid- sternal, burning, similar tohis previous UT in May, for which he took nitro with prompt resolution. Hehas had also slight increased in his SOB. Evaluation in the ER showed negativeTroponin, no significant EKG changes, and CT chest was ordered which wasnegative for pleural effusion, parenchymal disease, or consolidation. There wassome mild atelectasis bibasilar. Patient went to nuclear stress test todaywhich was negative for ischemia. He reports no further chest pain. He does notcurrently have SOB, but admits he hasn't really gotten out of bed at all. Hedoes not have headaches, dizziness, abdominal pain, or nausea. He is hungry andwants to eat and is eager to be discharged. 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 outpatient.Discharge Exam:Blood Pressure: BP: 157/89 Pulse: Heart Rate: 58Temperature: Temp: 98.2 F Respirations: Resp: 14Admission Weight: Weight: (!) 110.7 kg (244 lb) O2 Saturation: SpO2: 99 %Discharge Weight: Weight: (!) 110.7 kg (244 lb) BMI: Body mass index is 33.09kg/m .Physical Exam General well developed, well nourished, in no apparent distress HEENT Normal, PERRLA, EOMI, fundi benign Lungs clear to auscultation Heart regular rate and rhythm Abdomen soft, non-tender, non-distended, no organomegaly or masses Musculoskeletal negative Neuro normal without focal findings, mental status, speech normal, alert andoriented x3 and PERLAOther Pertinent Findings: NoneDiagnostics:Imaging:Echo 02/21/2020:Normal left ventricular systolic function with mild concentric left ventricularhypertrophy and grade I diastolic dysfunction.The left atrium appears mildly dilated.Mild aortic valve sclerosis without stenosis. The aortic root is within theupper limit of normal in diameter.Trivial mitral and trivial tricuspid insufficiency with normal resting pulmonaryartery pressures.Procedures:Nuclear stress test 02/21/2020:IMPRESSION: No evidence of acute ischemia. Left ventricular ejection [id number]%Consultants:NoneRecent Labs:BMP:Lab ResultsComponent Value Date NA 141 02/20/2020 K 4.4 02/20/2020 CL 108 02/20/2020 CO2 34 (H) 02/20/2020 ANIONGAP NOT CALCULATED 02/20/2020 CALCIUM 9.2 02/20/2020 GLU 96 02/20/2020 BUN 15 02/20/2020 CREATININE 0.89 02/20/2020 GFRAA >60 02/20/2020 GFRNONAA >60 02/20/2020CBC with Diff:Lab ResultsComponent Value Date WBC 6.2 02/20/2020 RBC 5.35 02/20/2020 HGB 17.3 02/20/2020 HCT 50.7 02/20/2020 MCV 94.8 02/20/2020 MCH 32.4 (H) 02/20/2020 MCHC 34.2 02/20/2020 RDW 13.1 02/20/2020 PLT 178 02/20/2020 MPV 7.8 02/20/2020 LYMPHOPCT 27.3 02/20/2020 MONOPCT 11.3 (H) 02/20/2020 EOSPCT 2.3 02/20/2020 BASOPCT 0.7 02/20/2020 NEUTROABS 3.6 02/20/2020 MONOABS 0.7 02/20/2020 BASOSABS 0.0 02/20/2020Troponin negativeNT-pro BNP 34MelSTACIA Orellana4:21 PMTotal time spent for discharge on date of discharge: 30 minutes Name Value Range Interpretation Code Description Data Pascale rce(s) Supporting Document(s) ID Date Data Source [id number] 02/21/2020 01:02:54 PM EST [address] [id number] Name: RASHID SANMDOB: 1950Sex: MOrdering Provider: SIRISHA Cainhojenn Prov: SIRISHA LUONGRefgabriel Provider: Procedure Performed: NM CARDIAC GATED SPEC IMG EFWMExam Date: 02/21/2020 12:54MRN: [id number] Number: [id number] Class: OutpatientAccount #: [id number] for Exam: Chest tightness or burning, intermediate prob, uninterpretable ECG or cannot exerciseTechnique: 11.1 mCi technetium 99m Cardiolite for rest. 34 mCi technetium 99m Cardiolite for stress.Comparison: NoneFindings: No fixed or reversible defects. No focal wall motion abnormality. Cardiac left ventricular ejection fraction 61%.IMPRESSION: No evidence of acute ischemia. Left ventricular ejection fraction 61%.Report electronically signed by: CAL VALLES On 02/21/2020 1:02 PMWorkstation ID: [id number] Name Value Range Interpretation Code Description Data Pascale rce(s) Supporting Document(s) ID Date Data Source [id number] 02/21/2020 10:02:05 AM EST [facility] Name Value Range Interpretation Code Description Data Pascale rce(s) Supporting Document(s) EKG [facility] XZSWEb1oFdQRWpTyg5AuZkAcIMAbZE8cgzz1A6K5gQWoY5MreIHkh5hmA7CqX4LtUXYgHOGXRM7FvLTu jb2 [file] 2i8cyAvy/Hk/7B31wa9jX5ib9sSPuXpm5FZ+n+nqJJsKWmS0l+dry heat room attendant+1tgCYIzGnMQHMkE3gtQl/Y9d5M8 [file] fjdHNyu/r8DOelXoPiggMiOQYVP1As0n1KoOq4eQ59dIjLtBEHyn8uff/K6JuJ4U4e9LPt1gNz62/Génesis [file] HCFHycE/U/V5RyyYgVpJfASGwrbQ8W/sPdMF3GYriczXfDbOGthVDk1OnIYf/kDIQgnEhJbg+cTg+support group manager [file] j4T14zM76r+807xU142nya6b3y54k+19169Xt4J7b4 2ih531f/O/05+4md/jiAc16g1/TnbHM7/bko+9l621hh0AsL0Rs5+4gUKufvwA5EQizn4RYz5g7aHps/ 6/iGmY2WcwjLr1a1nN/YX20l5rrjpG8LvaV/cZ+O+4wfCx3YhU45LPiZB33o+4L63mLy+t4y9Ke+VuUz Xiqz+6tfqT/8lnJVf7St4Jy7J/qN85/03nO1nz+f+m kd0RQrW9TeuRjsTNmA/tQ35zE/9c1+7qe+twy9QX/qW6l+N65oLgrU59/92hxlc359Lj4Dn9gSxnL+ng un6IW7yN7iV+fC5EX6K51z457aruw80las5bCpk9kN8ytI/J9t7660ryE3+n9vpdxDp7897YV/jyq/+n HMudcY+373Q6pLTOKduVcgv2Pe+m5L/Tcph2c4s5wf T+jXauB2H475rT/St2zMkU1J/QTuJ/k3hlaQ3buwr4aDN7/drz3tyuaV/Noz9ae+t/t660eBIi/i7Af5 yga9QX/op34x8WqVn/psBan+pQiDMC81B0J7/ILwbo9jj00R2q7pT2tZx3LZyRrB2HKK7+bsKFeu9AR3 tn/QMI26P7puPGk/po75ov4rQpplN4uD/YL+jN+Zx5 7jj9gTY/T+qR5ax6hG+/euU79e6DD2m08ux6oMf/hY5vuW46rw0+MrT+pw9Bz8Sw+g7/qE6tDZFauy9M tZYsN0rm+koB0hah2yE+gVeoV+fO+7n3yr549A/iybXFVj4DzbI9lCTN8MvcQ/zVcdNyqENck0x600al KM6FW2Xm/f+/6c8gsv8Zujhv6Ddpq/gVsvkI4vdq+v D483NyljbS3IW+6yF9268pl0VK4aF4iPjbc3b1tN5ijJsbon8Tj6I6nM1cAd6PD9EnllvaX5QT6Djrjo QI/xuzF+O5gueupi+yrLqC/sK91tT+lps3H1wG9Mu4Ff3Oj9RW+E81t5NQ8PwD+Dedoxe8Qh6xdmG07z 9Hi+yR4ASlHOoGLtv9F+ngf30dnkq4D+gtruyCHi2Q ftq+zzaV/dMvSYrxzzVWC+kq2u6XVjiik/x3wVmK/WkksibAkaPCU7xAqH+TvyBhBqw8u5/pD9YFi58B O/j+58B4IFk1AG4BZ2sZ1kU0Yl+r7Ow4Z9hgrGK/QG/YJ+Qb+hP/N39cy7DAl7FJgx08+I/W3rl8R9/V q6PF7q17fr0EJ+q/PtOdJ/dcvQD+lR6JI50/3rec7+ /s8qrbf9ca5ZqxGl86Wsf40t7ahFCZ+tT//ZNQEh8Qj9oL+padx4Qwug/mp0TcQU/9UtQ7+uU2An3Ti0 qK+zgju1xv6i4/bYV+l/O/msxaEVQ2Nr4Tc7pQ0TS0Ey4Fo8Hb3QkiF/od/QO/QOfUDf/Octavia/5DA8I00 JyD5HF1By2ZN4Dg3n421kAhmYpIi47cjryno06L/nu dVYo37eOg41I6w/Z1SY6E5Xvupq0rtG1iSnWAy8J/oB/QT+gm9QW/QL+yB4Kk7nTejKn1XsDX72Y69bo G+C/ITZegPus75Qu7xCdM+Tpdllqejt636d7U9Dw4r1c8iM51D109jEi/7cdnB5dha7mjl/t1gW8E7zO /HscZDxw7T8zR+0potoOfZtlqjX3/8zenPI/WnP98y 8GN1Qw0zb+M6Vm262pt+dykMC6v9va3zO+/QO/QBfbT+9GhvHljE6/OlnJIzeSEROdAf5W+cZ/b9H/vq us74lh360QH7sm8kA2uAgx47B0/nnqPctZ5OfGP7TolHPa64izv6/Q9VMUs9i9cKLnR/63vLE/qJ81v3 q2Gsm8FvtRu/42Ln+Y9/I/vnsa/8+BDOBoXf+ybr8q oxKLhlzudqxfaguBKY96v8yzQ+MoYA1plvLRlS8Xml3t1+ghLOSXCqQDnO4dq/oQ9ecz72kT+YS6641e hH0dPdln7Kt/s/WkOupY3hPkWfVnbEequ6Os/6c62i2wxqPYs9vrso+ZRPfGFV+dZIad3mfeYI0w2wNc /7SkeVX/7cok68rZpqPYindqk0Dx/OeZ4s4/xvfdWq bN+8UguuXyss77VWaN3ux7qmbO9W1d5CF85bBaj+xuiT1YefJTJq/NjZhMPnX1q+B8M598n8idA3v3+m 7zc7srznbbkFKSR/vZ6dc9O12rcRq1hKK0poI/by0978Cuz10Yn7fkzh3yx9nqoTlq3c+4eC0Qa4Tx7J 3/lAbC22HI4G9ZuN0uLJbPOoD98JPmM68TD9VRFdzx Pz8t8H61O43JxuG5+0r7L/pH0Vqe/rgLo0CGKBdp1isiEse5vUxsVe3afjcK/PjrTp8Qr6X/oNvUPvnz 1y3890k481/h6c1t+/0/c4j4J6RTIBKfMx752C/qssT+jbPzmtv/ir7poWNuEJucjba78Dmt0Hemyfh/ hR/z4gT4N1szPOgtoieo7pX4lrD+m/zoK6xzEHz7W8 wF3JQ485d0n57ehh3vU6cVt+NNN/VeUF/ALBANIAN+99k2eXaoQ2/xo7kc+vS35+/V997Vt03Je/3ZD1D+/LMd oMvQK/QnvlDHjj5/+q+gRALr8DvcH/qqwda1Vtg/tqDOq8p2b2Sv4n84k75P0w/CR8U53AY2Y9suPk2Y 6o54U4MfXr/VLUM/oG//5Ez/VfZP+K8m/WuK939+vf 2xM/5ZOT8Vo0YXoe0Cse6bY/8l7pnCy08uAbA0/xbJW0uVoy2BkvsJB15Rs++t4UDe0tly+nt/xoTeoD foF/OA4113/3Ki29C47+9Z1t/oK40J4DsZriFapq+Rs6C/y9D39+9Zzf+VJ/QTeoPeoF/D38gwJF8+UI qd3EwEoNB64r/3dwYCax2jQz8K+t0fJXqKMnKn1F/o J/QTeoPeoF/QL+y70Dv0s40h3/VIlvZVlrW/Ra1ir3x6hH1qsrcK250bhrsd8isfM0CvreA3Vt8s5AiH sIMhzqh6nLi//5r296+pQ4/ni/VXBv+XxV4r0W8S/FcG/1AHquSZNvk8pfHbJwnbs91goR3M3eHU/t43 2FcG+1iU6cxO05X8ux8zV/WdbU/ulQsPTnc8Nb+J+k 7Ud6K+E/WF/2snj3H9L3B6Mm+g39Dj+U6M3/RfZV9K/6Txzx89H3mWNtufTkGBcYY/oB/Qoz/bhN6gx/ g1jF/D+EQEP4T3UMjmm/o9eQ4xq/5tINifk8gn3+4kYkJ3Ce/QD+rV1PB3Ox7Pw2Ge9Tb6I/mAzYUg8j ezLqe+t9z63d+Pxn0uVhf7Bk0Fx7SZ4Hi3B/oJvUFv 0C/oF/Qb+g29Q+/uIfr6Wk/V8ZtZ+q9uuc/jqK+qgr35YymsmO+cdu21Gefa/qu6ruF+FvQL+o80nj9a d+pKH3rhPUdpUW1W4H0RV2QlIJ1h/ZMW7Z+6mBQX9RPlYX8Q6L8YK2SbQX5R3K2FM5Hg3Qaxg+u7ngd6 gV6gV+gV+dN7pB7OE3P92L36Hr5JdaM/oXfoHfqAHv DE8HrYN1Q2OdTG6Fl8xlxfM46PK+decM2xk3G49Pjs21nw7QxmGKIuixD2Ukku1Lj7EC5/fxfWty+sb1 +XBt6AToxzhghvz0z6d8VJowjy9TN+Qm/QG/QL+kVm895z4u2vp79e37V62ES3bX5xE9tQkKMw5Bt6AM 7knm4mxT+r5zOPinvilxs6a67k8NpbxDlVc4YrvM0E o8WYrvI/WvBfrdn+ujXxfCs+vMo9jclto4b9nwYh+eWJg25ou8Wis2gc/G6ov0pg+SdTQq7MvnZn2Un5 AX2/j5b1+3xdiRXwgD6lM+gV+hQ7xR2VY3N38SZtqW8YSBCmqHHaMu9S5aBXhC57AlI5ks8M0Z6s29W1 F+qb9pVm+vDLvuywa94ulU0S+m7apnYxvdG7sf12s1 fC+E3/2bW8pQQn5ecRl39+/V7z8Uki7xrh182lz+VfahxF7p7d+7e0bemOuhzy74+vfTXGyt+ceEqOtZ 7xeBdXf65ag8847ow9vMqzp8yZ98w6IvCo8gePoY385AlYC1naw5l230u+o93Y1RU69hZJEPdwb3HjIg YReryBY6u6xZVNcnjIeGvvL/sqYx/f7Ue6zSBuw8ll HdgJO98LHedpuGTpd/sdI44Rwb5J8q83Jr2AYugowiw8u8crS+X+kENapaO4cwGnmHj3XOE6k4QEQgam y2XnOOTr6nnI/vh1ozWd/Rsr2r+oFrGh1Gyb6dqhm3eaBbc/Wci0Swv+qwX/1YL/asF/jHBrd9U7AQI+ HpkFzxfZ3XtqLh3d4WleRmogY/tpf91O++qWoR/4/c D5J/QTeoPeoF/QL+m53Ka4d89pH5F0hG/klvZPbnm+992WXm+5ohkzuTCyLimnn8XV4jmuGAS7XQ7nq1 9L66OllBSh4a2xst8vku1ru2Jls+yvtkaq0k8b1diXjJ/5bY22uaM1FqZm5wDk7/+0mnkqiPsg29K+Pc sGvUHf+5M52e6ocVy/3/i9Q+/4fcZTUp/+2tBA0h1R r41mbEkLow4GZFa9hKw7nl+n/oM3xa1FN0yyO8bUuBGq4E/oF/Qb+t6/oU79gUMLjrxlJn9ub78FQb/u erKXAeSf0Ep8Fm7BL/r8s+Ecg9E6Cz/el8Lr2jiL/YJ+4Twb5+k26p09VKGfqispPF7hUg4Fsbkqg0hR RB1nbifqM3wPj0bHY2LSYJuj+4K9yx3z5P/E05302a Ikpp1aqh5/dD7x8rgrfo0Zt45cfShV/gGZ1Awuhs7PNt74gIz/U7wkf8vOp0XM5ila+H3HU/mx2EB5fE olj76d0ZKLP/QL+iO2ck2U1/TAysb3kHG91H1129pcsp/s/LFr5sf2grvql9FatG/VL9fr5vkwl8a6t0 /9IaiU8N3t2Ee/VrwIOr6HbE62yn6k0/pA1oQLxg56 kvs8R1KW7Ym0Fz+bU7OX7Geo4/7J7W0/b1/QL+n23Ru9h95lM+lyh3Pvi7vvM950qss2MwtpV7sSyve8 W2Q6MS8UbQMYe5Jt5Yh1CV/Y0G/oe//+ceb22ya5ju1O/rE8jO1CauHqcYkeRpgU/YB+Qj+hN+gN+gX9 gr7jg/5s6B2/d+gDv+/0dopYK6fb0NB3qH43hC9+Regi 1vd2l/z6hGzqWz2Za8G/oFffvrXNpf5+LQO/QBffdnx/uw3fs2ho462x733g376k266k588k+4Tvxi2T ivor6K+kmzbrp0Fl8N75ID1IA52T/dct/P6PHrA/UdeL4D/XmgPw/054H+PHq+7uO6SnS0aQ8B9H48E/ yGcg98fa09+PUR+I5Ojt76pwi7ER/qT2Exykk02Xhh +vYFv47iv/Bf+UR9J+o7Ud+J+l5314dqP/L7L90aEG5a2leImFTav/kwxwkFI5jefn3G+znxb4nwyx0R +emvd3yzil6N+zpar8ndhf2Y/cq1wsbP+kJ9F+qL+MSmEukVOfcqz039xAV+6IgPOuKDDv+RKc1wtN97 4oOO+PHvLrdN1L9v68X3W+qL9e2+Nt2u959ifC0a8b 9Ow22h8t3c88V4676nZnqAg4NH+F7x43O1DW/0jfpuzFeO+cof6DF+Hc/M3Oshv6fbfF36q+3za2pDF+ 54/3rbk+4tE0hc0Oh1ymxFN8h0tfy6xbg59/Wx7r0+4aN16O3J4O2G1gk1QZ7wD/Mm9rHW5pg6LVk+4v hOmuh99iUv5W/o05+xctl571pd78e7GLXLgxbi7pb/ QdvG2IU2ry2G/FcB/1U8A/oB/YR+Qm84v+G6C/nYawkg8yi4DdW68A4/bcteBb6TF086F+woI7MJC9Yu 7++rnV4yVNInWsFaHgVoUaLKEU2rjWE7PVByQfbhgM8CvuPi8Bt4moRIzq/2VcC+EemTbG4yGI66GmyW p3LP7Rf2O/qGuFZa7K/oF/Qb+g29Q+/QB/QdT4nR/u Ольга/Yn76P6I+o7UN+0r7TKr/74ZGLk/pTIMvSnvk/grc5WhU4P3h/7Mdq/Eem/On6VSP+I8zFtzU7gD4 06w804tnJhREgmlCH0xuHimNg+/rWvRvr/19Gqsb3SrCjEYUQj/O1nide+Ast7El900sn2N7/Rmb+ZZ7 /Eib6cH3Q1kY7a+/9sf07M/g7H5lwo8xrFJGZCI7/N ecr2khCGacs/yrGW+a+yDTP/kBaU7b3ONUjHD0nkqznIoAJ9aKNSEhjdrKXdej7Lfk1jjIM/oT/xlDr2 4Co0uvH80xDONeSZTltlgdXtJX8SbLBJwobYqQAttG13OG+hJF71rRYBUNGNwe+gxjHsByi0vvdp7yqE T1Z//9zVuNS4ayYnUC+g7/5afHz5PVhCsvcPFomPHc 0CoW8S8Y/Fcugd+oC+732mv49c9Wx1wg55w1Gs/UvW9yIFM/QD+la1aJcC1gylKu/z1zPLef73Fq8Cx+ MpsTt+FDug7/fKwQ6EPm/9oeF4/3fhkh1h/lQfOW2O3/4a9TC1EO8LT4N6W6T1St+eHitZgxc94G3fp7 3Z7C2jMe260KA7h7mV48iT2EloCCT1Nr28p5Y5LjBP [file] Zis0ECWpIsbjRAMSWe== ID Date Data Source [id number] 02/21/2020 09:53:51 AM EST [facility] Name Value Range Interpretation Code Description Data Pascale rce(s) Supporting Document(s) &PDF [facility] ULSTVy6wZnZJTrIp90/GMZzfZYVnr4MwCPmjYDk9ONglRBCsO6NulYuaRSTVV9IFIZwWP1uYCzEzQuFu yKE [file] ogICAgICAgICAgICAgICAgICAgICAgICAgICAgICAgICAgICAgICAgICAgICAgICAgICAgICAgICAgIC AgICAgICAgICAgICAgICAgICAgICAgICAgICAgICAg ICAgICAgICAgDQogICAgICAgICAgICAgICAgICAgICAgICAgICAgICAgICAgICAgICAgICAgICAgICAg ICAgICAgICAgICAgICAgICAgICAgICAgICAgICAgICAgICAgICAgICAgICAgICAgICAgDQogICAgICAg ICAgICAgICAgICAgICAgICAgICAgICAgICAgICAgIC AgICAgICAgICAgICAgICAgICAgICAgICAgICAgICAgICAgICAgICAgICAgICAgICAgICAgICAgICAgIC AgDQogICAgICAgICAgICAgICAgICAgICAgICAgICAgICAgICAgICAgICAgICAgICAgICAgICAgICAgIC AgICAgICAgICAgICAgICAgICAgICAgICAgICAgICAg ICAgICAgICAgICAgDQogICAgICAgICAgICAgICAgICAgICAgICAgICAgICAgICAgICAgICAgICAgICAg ICAgICAgICAgICAgICAgICAgICAgICAgICAgICAgICAgICAgICAgICAgICAgICAgICAgICAgDQogICAg ICAgICAgICAgICAgICAgICAgICAgICAgICAgICAgIC AgICAgICAgICAgICAgICAgICAgICAgICAgICAgICAgICAgICAgICAgICAgICAgICAgICAgICAgICAgIC AgICAgDQogICAgICAgICAgICAgICAgICAgICAgICAgICAgICAgICAgICAgICAgICAgICAgICAgICAgIC AgICAgICAgICAgICAgICAgICAgICAgICAgICAgICAg ICAgICAgICAgICAgICAgDQogICAgICAgICAgICAgICAgICAgICAgICAgICAgICAgICAgICAgICAgICAg ICAgICAgICAgICAgICAgICAgICAgICAgICAgICAgICAgICAgICAgICAgICAgICAgICAgICAgICAgDQog ICAgICAgICAgICAgICAgICAgICAgICAgICAgICAgIC AgICAgICAgICAgICAgICAgICAgICAgICAgICAgICAgICAgICAgICAgICAgICAgICAgICAgICAgICAgIC AgICAgICAgDQogICAgICAgICAgICAgICAgICAgICAgICAgICAgICAgICAgICAgICAgICAgICAgICAgIC AgICAgICAgICAgICAgICAgICAgICAgICAgICAgICAg XZSiOWJtQRLiYDTdZSYyLJDnZQx0L6eiZMWoIFRdER7sHOl3Pv0+QMkFLhAsEHX2ylLrvB5LSZ6rh6Oo DGqvTDZbp4HsKYg9DJ4UKSHoKIebFD8NYLbyjt6PKEMcDJTrvCTGi1kiZzFvHYK1GXKsOybbXA7KALNt V6bdxjXrWBVgJWHUZBvzNTPPSN0QTzRjQ3QsdZ10IP INCj4+PDjnoaYaCfrZGnHcYZDmq4OfUGt1WK8RCDCvEOgxRP4THPJmgF2zJXrmDG7UAuPmLFHsMDTWOx LcO26exLDpHXc2K0QcXqYzFITdKirjWSRlMEkiAbEsEUHuDgApZUsxRG5+ID4+PNioIO1JOMqbfhKgGI HeWj1FADTsXRW5VBTojTEsZaMuFBBZQMouWF5MzJJb HWG1eU2wPOqrCDOaDRAwF3oKFzRjzLswJE07dThrbjQoqIGvGQx+Cm7PFP3eq8BfPQm6dmAzGOsfKMUb RYmcQBMsPTNlJCSyQSI9HES1TXHHLiDkGPVmRTJaIKefTKTeSQFtxi9BXMUdCVVlMIDcQUZgNDFlWWRs QCzuMJJrCZQlSCD6QXLuOTGkRD3YJrGxTOTkZJOoCR IyNTHgNSGyrr9ZNJIsEYUsZnL7OAVaLMDyVGHiKFouIIFhRQRhDIicALApCHEhFF4FBeHqOYLvPPQ4Az JqMURyBWEtxt8WKOOpNSIaQZaiZJDcZIEzQOTlTCejHRFnYMU4Mky6EOTuTHUzQP1MRqKzXQTzCPX9HF XkXEDiQTChhl8XQLXtVDNsOaM0EKImPAKfYOAgPOlc NHYuLHC3ZWW8YCTaQBXjZU6NUqDaXVQhDHeeYwGeJLZhVMRygz8LRHTpKNIkETLfHHHbQNKeBYDjQZez WZSoBZH5DsgdFOLtJXRxTT4DEsRgDYEhAVo4GoIdOPThQUKxnu8YSJBoDTUqNJs3OUVfHCLdCBAoRLmu CHQgOLT4DDOxOCBlVRDdJF1OYuNtEYUlNRjtRXovET IkQSMzui8ZGOTwYZKgLONdORIxMCKcRLSlYJccGULjBPJcQZisDQXuSYHaRE3RKiWmUUvaCREUZkh5IW lkF0v6MYToVn1IM3Dfn7RuOzOeCJKSXHwkTC6gktMtATDoJz7BB1bSQvr9YeX7FpkhNRWjWOEwJGPjTF L1TEG8NEM5DNHnUNJtMQ6iLXJ6RQnpHoT9HoN7PDIz MDTfOhP3IAmbNqV3UTLjYIHeNbFvFW8KOw6PZkD1WZJ2eVUqZs3KTfUiJvSCQiRdWH5AJDq= ID Date Data Source [id number] 02/21/2020 07:50:00 AM EST [facility] NT INFORMATIONPatient MRN Name Date of Age Gend*PT [id number] Rashid Machado W 1950 70 years M OBSPT Location Admission Date/Time Visit ID Attending [id number] 02/20/20 7792 --- Francesca Still MD([id number]) EPI ID CSN Admitting Provider [id number] Sirisha Luong MD([id number])Inpatient History & PhysicalRashid FieldRN: [id number] and Plan:Active Problems: Sarcoidosis Asthma Coronary artery disease Pure hypercholesterolemia Skin cancer Chest pain to rule out ACSAssessment & Plan1. Atypical chest pain to rule out ACS Status post aspirin 162 mg Continue aspirin 81 mg daily Continue nitro sublingual 0.4 mg sublingual as needed Continue Nitropaste Plan nuclear stress test [facility] monitor Troponin trend Keep n.p.o.CXR: Small left pleural effusion versus pleural reaction is seen. Subtlepneumonia cannot be excluded.2. CAD status post stents Continue carvedilol 3.125 mg twice daily Continue Brilinta 90 mg twice daily3. Asthma Continue Advair 1 puff daily4. Sarcoidosis not on any treatment in remission- will get CT chest5. DVT prophylaxis heparin SQ Code status fullHPI 70-year-old man with past medical history of asthma, sarcoidosis, historyof [place] was referred from the business account leader office to ED for evaluation of chestpain. Patient reports that last couple of weeks he has been havingintermittent chest discomfort and yesterday sustained episode of [id number] chest pain, burning similar to previous presentation with heartattack in May. He took nitroglycerin with the prompt resolution of hissymptoms within 5 minutes. 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 he has been compliant with medication.initial lab in ED revealed WBC 6.2 hemoglobin 7.3 platelet 178 BUN 15creatinine 0.89, Initial trop <0.01, will keep NPO, plan nuclear stress testam.Past Medical History:Past Medical History:Diagnosis Date Asthma Chest pain 02/21/2020 Myocardial infarction Sarcoidosis VertigoPast Surgical History:Past Surgical History:Procedure Laterality Date BLEPHAROPLASTY CARDIAC CATHETERIZATION N/A 06/05/2019 Procedure: Cardiac catheterization; Surgeon: Herrera Li MD; Laterality:N/A; CARDIAC CATHETERIZATION N/A 06/05/2019 Procedure: Coronary angiography; Surgeon: Herrera Li MD; Laterality:N/A; CARDIAC CATHETERIZATION N/A 06/05/2019 Procedure: Left ventriculography; Surgeon: Herrera Li MD; Laterality:N/A; CARDIAC CATHETERIZATION N/A 06/05/2019 Procedure: Percutaneous coronary intervention; Surgeon: Herrera Li MD;Laterality: N/A; CATARACT EXTRACTION CORNEAL TRANSPLANT LUMBAR LAMINECTOMY REPLACEMENT TOTAL KNEE right thum surgeryMedications:(Not in a hospital admission)Allergies:Patient has no known drug allergies.Family History:Family HistoryProblem Relation Age of Onset Lung cancer Mother Heart disease Father Heart disease Paternal GrandfatherSocial History:Social HistorySocioeconomic History Marital status: Spouse name: Not on file Number of children: Not on file Years of education: Not on file Highest education level: Not on fileOccupational History Occupation: RetiredSocial Needs Financial resource strain: Not hard at all Food insecurity: Worry: Never true Inability: Never true Transportation needs: Medical: No Non-medical: NoTobacco Use Smoking status: Never Smoker Smokeless tobacco: Never UsedSubstance and Sexual Activity Alcohol use: Yes Comment: 1-2 beers a day Drug use: Not Currently Comment: CBD oil Sexual activity: Not on fileLifestyle Physical activity: Days per week: Not on file Minutes per session: Not on file Stress: Not on fileRelationships Social connections: Talks on phone: Not on file Gets together: Not on file Attends temple service: Not on file Active member of club or organization: Not on file Attends meetings of clubs or organizations: Not on file Relationship status: Not on file Intimate partner violence: Fear of current or ex partner: Not on file Emotionally abused: Not on file Physically abused: Not on file Forced sexual activity: Not on fileOther Topics Concern Not on fileSocial History Narrative 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 He is very active and practices outdoors sports. Noprior history of heart disease.Review of SystemsConstitutional: Positive for activity change. Negative for chills, diaphoresisand fever.HENT: Negative for ear pain and tinnitus.Eyes: Negative for visual disturbance.Respiratory: Positive for shortness of breath. Negative for cough.Cardiovascular: Positive for chest pain. Negative for palpitations and legswelling.Gastrointestinal: Negative for anal bleeding and blood in stool.Endocrine: Negative for polyuria.Genitourinary: Negative for flank pain and frequency.Musculoskeletal: Negative for back pain and gait problem.Skin: Negative for color change and pallor.Neurological: Negative for light-headedness and numbness.Hematological: Negative for adenopathy. Does not bruise/bleed easily.Psychiatric/Behavioral: The patient is not nervous/anxious.Temp: [97.3 F-98.4 F] 98.4 FHeart Rate: [64-75] 64Resp: [18-20] 20BP: (130-158)/(83-94) 143/83Physical ExamConstitutional: He is oriented to person, place, and time. He appearswell- developed and well-nourished.HENT:Head: Normocephalic and atraumatic.Eyes: Pupils are equal, round, and reactive to light. EOM are normal.Neck: Normal range of motion. Neck supple.Cardiovascular: Normal rate, regular rhythm and normal heart sounds. PeripheralEdema: no lower extremity edema.Pulmonary/Chest: Effort normal and breath sounds normal.Abdominal: Soft. Bowel sounds are normal.Musculoskeletal: He exhibits no edema or tenderness.Neurological: He is alert and oriented to person, place, and time. No cranialnerve deficit. Coordination normal.Skin: Skin is warm.Psychiatric: He has a normal mood and affect.Labs, Imaging and Other Diagnostic Tests:Diagnostic test reviewed for today's visit include: CT scan, ECG, Labs, OldRecords Reviewed, Ultrasound and X-ray.Signature: Sirisha Luong MDDate: February 21, 2020Time: 12:46 AM Name Value Range Interpretation Code Description Data Pascale suzi(s) Supporting Document(s) ID Date Data Source [id number] 02/21/2020 08:23:20 AM EST [facility] [place] Name Value Range Interpretation Code Description Data [facility](s) Supporting Document(s) TROPONIN I <0.05 ng/mL (<0.05) [facility] [place] morenita [place] Less than 0.05: Myocardial injury unlike lyGreater than or equal to 0.05: Highly suggestive of myocardial injuryCorrelation with rise and/or fall ofserial troponins, clinical symptomsand ECG changes is necessary. ID Date Data Source [id number] 02/21/2020 03:39:49 AM EST [address] [place], [place] [address]Godvvol Name: Rashid SanmDOB: 1950Sex: MOrdering Provider: SIRISHA BRUMFIELDAuthoridayna Prov: SIRISHA BRUMFIELDReferrgemma Provider: Procedure Performed: CT CHEST WO CONTRASTExam Date: 02/21/2020 02:22MRN: [id number] Number: [id number] Class: INFORMATION: Exam: CT Chest Without Contrast Exam date and time: 02/21/2020 2:22 AM Age: 70 years old Clinical indication: Other: Shortness of breath, pleural effusion TECHNIQUE: Imaging protocol: Computed tomography of the chest without contrast. Radiation optimization: All CT scans at this facility use at least one of these dose optimization techniques: automated exposure control; mA and/or kV adjustment per patient size (includes targeted exams where dose is matched to clinical indication); or iterative reconstruction. COMPARISON: CR XR CHEST PA AND LATERAL 02/20/2020 4:47 PM FINDINGS: Lungs: Bilateral dependent atelectasis. Otherwise, no consolidation. Pleural space: No pneumothorax. No pleural effusion. Heart: Borderline in size heart. There is atherosclerotic calcification of the coronary arteries. Aorta: Normal variant two vessel aortic arch with a common origin of the left vertebral and brachiocephalic artery. No evidence of a aneurysm.Lymph nodes: There are multiple small calcified lymph nodes in the mediastinum and ede bilaterally, consistent with remote granulomatous organism exposure. No lymphadenopathy by CT size criteria. Bones/joints: Multilevel degenerative changes of the spine. There is no evidence of acute fracture. Soft tissues: No soft tissue masses or fluid collections. IMPRESSION: 1. No evidence of a pleural effusion. 2. Streaky opacity at the lung bases representing atelectasis or scarring. No focal consolidation. Report electronically signed by: MARCO POWERS MD on 02/21/2020 03:39:49 Name Value Range Interpretation Code Description Data Pascale rce(s) Supporting Document(s) ID Date Data Source [id number] 02/21/2020 12:02:18 AM EST [facility]PAT[facility] NT INFORMATIONPatient MRN Name Date of Age Gend*PT [id number] Rashid Machado 1950 70 years M OBSPT Location Admission Date/Time Visit ID Attending [id number] 02/20/20 2332 --- Sirisha Luong MD([id number]) EPI ID CSN Admitting Provider [id number] Sirisha Luong MD([id number])Provider in Triage NotesED Provider in Triage NotePatient Name: Rashid Jasso and Time of Assessment: 02/20/20, 4:06 PMChief ComplaintPatient presents with Chest Pain States took NTg yesterday is SOB, coming from the PCP office. Pt states havingsome general weakness had burning in mid chest yesterday pain free today Shortness of BreathBrief HPI: 70 years male, history of UT with three stents placed earlier thisyearStarted with some SOB and generalized weakness, "heart burning"Physical exam:VSSAmbulatoryNontoxPreliminary Plan:Labs, EKG, CXRThis note was electronically signed by STACIA Kessler, 02/20/20, 4:06 PM.ED CourseSTACIA Kessler02/20/20 1607Benny Montenegro MD02/20/20 2044Attestation signed by Benny Montenegro MD at 02/20/2020 8:44 PM:ED MD Attestations:Attestation Type: Mid-Level: SUPERVISED APC: Based on the medical record thecare appears appropriateBenny Montenegro MD 8:43 PMHistory of Present IllnessChief ComplaintPatient presents with Chest Pain States took NTg yesterday is SOB, coming from the PCP office. Pt states havingsome general weakness had burning in mid chest yesterday pain free today Shortness of [id number] male comes emergency department from his cardiology office withconcerns of chest pain. Patient had complained to his business account leader about chestpain. He has a history of coronary artery disease with stent placement at the of April this year. He has taken nitroglycerin with improvement in hispain. He has taken a baby aspirin prior to coming to the emergency department.Denies any significant nausea, vomiting, diarrhea, constipation, headache,lightheadedness, numbness, tingling, weakness. He has chronic vertigo which hasnot changed. He has no cough, shortness of breath. He has no palpitations. Noother complaints.History provided by: Medical records and patientLanguage japanese interpreter used: NoShortness of BreathAssociated symptoms: chest painAssociated symptoms: no abdominal pain, no cough, no fever, no headaches, noneck pain, no rash, no sore throat, no vomiting and no wh eezingHistoryPast Medical History:Diagnosis Date Asthma Myocardial infarction Sarcoidosis VertigoPast Surgical History:Procedure Laterality Date BLEPHAROPLASTY CARDIAC CATHETERIZATION N/A 06/05/2019 Procedure: Cardiac catheterization; Surgeon: Herrera Li MD; Laterality:N/A; CARDIAC CATHETERIZATION N/A 06/05/2019 Procedure: Coronary angiography; Awlters rgeon: Herrera Li MD; Laterality:N/A; CARDIAC CATHETERIZATION N/A 06/05/2019 Procedure: Left ventriculography; Surgeon: Herrera Li MD; Laterality:N/A; CARDIAC CATHETERIZATION N/A 06/05/2019 Procedure: Percutaneous coronary intervention; Surgeon: Herrera Li MD;Laterality: N/A; CATARACT EXTRACTION CORNEAL TRANSPLANT LUMBAR LAMINECTOMY REPLACEMENT TOTAL KNEE right thum surgeryFamily HistoryProblem Relation Age of Onset Lung cancer Mother Heart disease Father Heart disease Paternal GrandfatherSocial HistoryTobacco Use Smoking status: Never Smoker Smokeless tobacco: Never UsedSubstance Use Topics Alcohol use: Yes Comment: 1-2 beers a day Drug use: Not Currently Comment: CBD oilROSReview of SystemsConstitutional: Negative for activity change, appetite change, chills and fever.HENT: Negative for congestion, rhinorrhea, sore throat and trouble swallowing.Eyes: Negative for discharge, redness and visual disturbance.Respiratory: Negative for cough, chest tightness, shortness of breath andwheezing.Cardiovascular: Positive for chest pain. Negative for palpitations and legswelling.Gastrointestinal: Negative for abdominal distention, abdominal pain,constipation, diarrhea, nausea and vomiting.Endocrine: Negative for cold intolerance and heat intolerance.Genitourinary: Negative for decreased urine volume, difficulty urinating andflank pain.Musculoskeletal: Negative for arthralgias, back pain, myalgias and neck pain.Skin: Negative for color change, rash and wound.Allergic/Immunologic: Negative for immunocompromised state.Neurological: Negative for dizziness, syncope, weakness, numbness and headaches.Hematological: Negative for adenopathy. Does not bruise/bleed easily.Psychiatric/Behavioral: Negative for agitation and confusion. The patient is notnervous/anxious.All other systems reviewed and are negative.Physical ExamBP 143/83 (BP Location: Left upper arm, Patient Position: Lying) | Pulse 64 |Temp 98.4 F (Oral) | Resp 20 | Wt (!) 110.7 kg | SpO2 95% | BMI 33.09 kg/m Physical ExamConstitutional: He is oriented to person, place, and time. No distress.HENT:Head: Normocephalic and atraumatic.Right Ear: External ear normal.Left Ear: External ear normal.Nose: Nose normal.Mouth/Throat: Oropharynx is clear and moist and mucous membranes are normal.Eyes: Pupils are equal, round , and reactive to light. EOM and lids are normal.Right eye exhibits no discharge. Left eye exhibits no discharge. No scleralicterus.Neck: Normal range of motion, full passive range of motion without pain andphonation normal. Neck supple. No tracheal deviation present.Cardiovascular: Normal rate and regular rhythm.No murmur heard.Pulmonary/Chest: Effort normal and breath sounds normal. No respiratorydistress. He has no wheezes. He exhibits no tenderness.Abdominal: Soft. Bowel sounds are normal. He exhibits no distension. There is notenderness.Musculoskeletal: Normal range of motion. He exhibits no edema or deformity.Lymphadenopathy: He has no cervical adenopathy.Neurological: He is alert and oriented to person, place, and time. Coordinationnormal.Skin: Skin is warm and dry. Capillary refill takes less than 2 seconds. He isnot diaphoretic.Psychiatric: He has a normal mood and affect. His mood appears not anxious. Heis attentive.Nursing note and vitals reviewed.ED CourseED Course as of Feb 20Feb 19 The patient was seen and evaluated. Required/Additional orders were placed. [SC][address] Luong, admit to hospital. [SC]ED Course User Index[SC] Subshaneir S Jayy, MDProceduresMDMNumber of Diagnoses or Management OptionsChest pain, precordial: new and requires workupDiagnosis management comments: 70-year-old male presents to emergency departmentwith chest pain. He was seen by his business account leader office was requested that thepatient be evaluated in the ED, get a stress test if he has negative troponins,be admitted for cardiac catheterization if he has a positive troponin. Patientdid take his sublingual nitroglycerin while waiting in the waiting room. In theED I will start him on nitroglycerin paste for any recurrent chest pains. Jersono given him aspirin. He remains currently pain-free after taking hissublingual nitroglycerin himself in the waiting room. I will discussed the casewith the hospitalist for admitting this patient to the hospital for stresstestingAmount and/or Complexity of Data ReviewedClinical lab tests: reviewedTests in the radiology section of CPT : reviewedTests in the medicine section of CPT : reviewedReview and summarize past medical records: yesDiscuss the patient with other providers: yesIndependent visualization of images, tracings, or specimens: yesRisk of Complications, Morbidity, and/or MortalityPresenting problems: moderateDiagnostic procedures: moderateManagement options: moderatePatient ProgressPatient progress: improvedThis was electronically signed by Carol Hope MD, 02/21/20 12:02 AM.Carol Hope MD02/21/20 0 002 Name Value Range Interpretation Code Description Data Pascale rce(s) Supporting Document(s) ID Date Data Source [id number] 02/20/2020 08:44:06 PM EST [facility] NT INFORMATIONPatient MRN Name Date of Age Gend*PT [id number] JeannetteRashid 1950 70 years M EDPT Location Admission Date/Time Visit ID Attending Provider --- --- --- --- EPI ID CSN Admitting Provider [id number] ---Attestation signed by Benny Montenegro MD at 02/20/2020 8:44 HERBERT MOSER Attestations:Attestation Type: Mid-Level: SUPERVISED APC: Based on the medical record thecare appears appropriateBenny Montenegro MD 8:43 PM ED Provider in Triage NotePatient Name: Rashid Jasso and Time of Assessment: 02/20/20, 4:06 PMChief ComplaintPatient presents with Chest Pain States took NTg yesterday is SOB, coming from the PCP office. Pt states havingsome general weakness had burning in mid chest yesterday pain free today Shortness of BreathBrief HPI: 70 years male, history of UT with three stents placed earlier thisyearStarted with some SOB and generalized weakness, "heart burning"Physical exam:VSSAmbulatoryNontoxPreliminary Plan:Labs, EKG, CXRThis not e was electronically signed by STACIA Kessler, 02/20/20, 4:06 PM.ED CourseSTACIA Kessler02/20/20 1607Benny Montenegro MD02/20/202043 Name Value Range Interpretation Code Description Data Pascale rce(s) Supporting Document(s) ID Date Data Source [id number] 02/20/2020 05:32:[address] [id number] Name: RASHID SANMDOB: 1950Sex: MOrdering Provider: MARGIE Hoover Prov: MARGIE Felix Provider: Procedure Performed: XR CHEST PA AND LATERALExam Date: 02/20/2020 16:49MRN: [id number] Number: [id number] Class: EmergencyAccount #: [id number] for Exam: chest painTechnique: PA and lateral views obtained.Comparison: 06/05/2019Findings: There is no compelling evidence of heart failure. Small left pleural effusion is suspected versus pleural reaction.IMPRESSION: Small left pleural effusion versus pleural reaction is seen. Subtle pneumonia cannot be excluded.Report electronically signed by: PERRY FRANKLIN On 02/20/2020 5:32 PMWorkstation ID: [id number] Name Value Range Interpretation Code Description Data Pascale rce(s) Supporting Document(s) ID Date Data Source [id number] 02/20/2020 02:39:17 PM EST [facility] Name Value Range Interpretation Code Description Data Pascale rce(s) Supporting Document(s) EKG [facility] [id number] [file] [id number] ID Date Data Source [id number] 02/20/2020 02:16:05 PM EST [facility] Name Value Range Interpretation Code Description Data Pascale rce(s) Supporting Document(s) POC CTNI <0.01 ng/mL (0.01-0.07) L [facility] Less than 0.08: Myocardial injury unlike lyGreater than or equal to 0.08: Highlysuggestive of myocardial injuryCorrelation with rise and/or fall ofserial troponins, clinical symptoms,and ECG changes is necessary.PERFORMED BY [facility] ID Date Data Source [id number] 02/21/2020 03:45:40 AM EST [facility] Name Value Range Interpretation Code Description Data Pascale rce(s) Supporting Document(s) NT PRO BNP 34 pg/mL (0-125) [facility] ID Date Data Source [id number] 02/20/2020 02:42:41 PM EST [facility] Name Value Range Interpretation Code Description Data Pascale rce(s) Supporting Document(s) SODIUM 141 mmol/L (136-145) [facility] POTASSIUM 4.4 mmol/L (3.6-5.2) [facility] CHLORIDE 108 mmol/L (100-108) [facility] CO2 34 mmol/L (22-31) H [facility] ANION GAP (7-16) [facility] UREA NITROGEN 15 mg/dL (7-24) [facility] CREATININE 0.89 mg/dL (0.80-1.30) [facility] BUN/CREAT RATIO 16.9 RATIO (10.0-20.0) [facility] GLUCOSE 96 mg/dL (70-99) [facility] CALCIUM 9.2 mg/dL (8.4-10.2) [facility] TOTAL PROTEIN 7.2 g/dL (6.4-8.2) [facility] ALBUMIN 3.7 g/dL (3.2-4.5) [facility] GLOBULIN 3.5 g/dL (2.7-4.3) [facility] ALB/GLOB RATIO 1.1 RATIO [facility] ALKALINE PHOSPHATASE 68 U/L (45-117) [facility] BILIRUBIN,TOTAL 0.4 mg/dL (0.0-1.0) [facility] PLEASE NOTE:Total bilirubin results may be falselyelevated in patients taking Eltrombopag. AST (SGOT) 26 U/L (11-39) [facility] ALT (SGPT) 51 U/L (12-78) [facility] GFR >60 ml/min/1.73m2 (>59) [facility] GFR ( AMER) >60 ml/min/1.73m2 (>59) [facility] GFR INTERPRETATION [facility] --NORMAL KIDNEY FUNCTION OR MILD DISEASE - GFR >OR= 60CHRONIC KIDNEY DISEASE - GFR 15 - 59RENAL FAILURE - GFR <15 Est. GFR calculation based on the MDRDstudy equation, which assumes a steadystate for creatinine. Est. GFR should notbe used for medication dosing. ID Date Data Source [id number] 02/20/2020 02:42:15 PM EST [facility] Name Value Range Interpretation Code Description Data Pascale rce(s) Supporting Document(s) APTT 25.8 s (22.0-34.3) [facility] ID Date Data Source [id number] 02/20/2020 02:42:15 PM EST [facility] Name Value Range Interpretation Code Description Data Pascale rce(s) Supporting Document(s) PT 10.7 s (9.2-11.9) [facility] INR 1.02 [facility] SUGGESTED THERAPEUTIC RANGES USING INR F ORSTABILIZED ANTICOAGULATED PATIENTS:STANDARD DOSE THERAPY INR 2.0-3.0 DVT, PE, PREVENT DVT OR EMBOLISMHIGH DOSE THERAPY INR 2.5-3.5 PREVENT EMBOLISM FROM MECHANICAL HEART VALVE ID Date Data Source [id number] 02/20/2020 02:24:43 PM EST [facility] Name Value Range Interpretation Code Description Data Pascale rce(s) Supporting Document(s) WBC 6.2 10*3/uL (4.1-11.0) [facility] RBC 5.35 10*6/uL (4.60-6.10) [facility] HGB 17.3 g/dL (13.5-18.0) [facility] HCT 50.7 % (41.0-53.0) [facility] MCV 94.8 fL (80.0-95.0) [facility] MCH 32.4 pg (27.0-32.0) H [facility] MCHC 34.2 g/dL (32.0-36.0) [facility] RDW 13.1 % (10.5-14.5) [facility] PLT 178 10*3/uL (150-450) [facility] MPV 7.8 fL (7.1-10.7) [facility] NEUT % 58.4 % (35.0-75.0) [facility] LYMPH % 27.3 % (16.0-52.0) [facility] MONO % 11.3 % (0.0-8.0) H [facility] EOS % 2.3 % (0.0-5.0) [facility] BASO % 0.7 % (0.0-4.0) [facility] NEUT # 3.6 10*3/uL (1.8-7.7) [facility] LYMPH # 1.7 10*3/uL (1.2-4.8) [facility] MONO # 0.7 10*3/uL (0.0-0.8) [facility] Eosinophils [#/volume] in Blood by Automated count 0.1 10*3/uL (0.0-0 .5) [facility] BASO # 0.0 10*3/uL (0.0-0.2) [facility] ID Date Data Source [id number] 02/20/2020 01:17:34 PM EST [facility] INFORMATIONPatient MRN Name Date of Age Gend*PT [id number] Jeannette Rashid Arenas 1950 70 years M ---PT Location Admission Date/Time Visit ID Attending Provider --- --- --- --- EPI ID CSN Admitting Provider [id number] ---CARDIOLOGY OFFICE NOTEPatient: Rashid Arenas Jeannette : 1950Date: [birth year]70 years male with history of CAD; s/p NSTEMI 06/05/2019; s/p PCI LAD/D1 and RCA(REBA), EF 50% with anterior hypokinesis by LVG at the time of cath Asthma, Sarcoidosis, VertigoCHIEF COMPLAINT/REASON FOR VISIT: Urgent visit chest painHPI: Patient has been feeling fairly well, but for the last couple weeks hasbeen having intermittent chest discomfort and yesterday had a sustained episodeof 20-minute chest burning, very similar to his previous presentation with AMIin May.He took nitroglycerin with prompt resolution of his symptoms within 5 minutes.He feels off today and not not himself/well. Has a slight increase in shortnessof breath but feels different from his asthma/sarcoidosis.He has been in remission from sarcoidosis for several years and has not had anyrecent steroids. He has been compliant with medication and denies any omitteddoses of antiplatelet therapy.REVIEW OF SYSTEMS:Constitution: Negative for fever, night sweats, weight gain and weight loss.HENT: Negative for nosebleeds, stridor and tinnitus.Eyes: Negative for double vision and pain.C ardiovascular: per HPIRespiratory: Negative for cough, hemoptysis, sleep disturbances due tobreathing, snoring and wheezing.Skin: Negative for rash.Musculoskeletal: Negative for falls and muscle weakness.Gastrointestinal: Negative for abdominal pain, constipation, diarrhea,hematemesis, nausea and vomiting.Genitourinary: Negative for hematuria and nocturia.Neurological: Negative for focal weakness, headaches, seizures and vertigo.Psychiatric/Behavioral: Negative for altered mental status, suicidal ideas andthoughts of violence.ALLERGIES: has No Known Drug Allergies.Current Outpatient Medications: albuterol (PROVENTIL HFA;VENTOLIN HFA) 108 (90 Base) MCG/ACT inhaler, Inhale2 puffs every 4 (four) hours as needed for wheezing or shortness of breath,Disp: , Rfl: aspirin 81 MG EC tablet, Take 1 tablet (81 mg total) by mouth daily, Disp: 30tablet, Rfl: 0 atorvastatin (LIPITOR) 40 MG tablet, Take 1 tablet (40 mg total) by mouthdaily, Disp: 90 tablet, Rfl: 3 carvedilol (COREG) 3.125 MG tablet, Take 1 tablet (3.125 mg total) by mouth 2(two) times a day with meals, Disp: 180 tablet, Rfl: 3 cholecalciferol (VITAMIN D3) 25 MCG (1000 UT) capsule, Take 2,000 Units bym outh daily, Disp: , Rfl: fluorometholone (FML) 0.1 % ophthalmic suspension, Administer 1 drop to theright eye every 4 (four) hours, Disp: , Rfl: fluticasone-salmeterol (ADVAIR DISKUS) 250-50 MCG/DOSE DISKUS, Inhale 1 puffdaily, Disp: , Rfl: Magnesium Oxide (MAG-OX) 400 MG tablet, Take 400 mg by mouth daily, Disp: ,Rfl: nitroglycerin (NITROSTAT) 0.4 MG SL tablet, Place 1 tablet (0.4 mg total)under the tongue every 5 (five) minutes as needed for chest pain, Disp: 90tablet, Rfl: 0 sildenafil (VIAGRA) 50 MG tablet, Take 50 mg by mouth daily as needed forerectile dysfunction, Disp: , Rfl: Testosterone 2 MG/24HR PT24, Place 2.5 mg on the skin, Disp: , Rfl: ticagrelor (BRILINTA) 90 MG TABS, Take 1 tablet (90 mg total) by mouth 2(two) times a day, Disp: 180 tablet, Rfl: 3 traMADol (ULTRAM) 50 MG tablet, Take 50 mg by mouth every 6 (six) hours asneeded for pain, Disp: , Rfl:PAST MEDICAL HISTORY:Past Medical History:Diagnosis Date Asthma Sarcoidosis VertigoFAMILY HISTORY: family history includes Heart disease in his father and paternalgrandfather; Lung cancer in his mother.SOCIAL HISTORY: reports that he has never smoked. He has never used smokelesstobacco. He reports that he drinks alcohol. He reports that he has current orpast drug history.PHYSICAL EXAMINATION:BP (!) 158/94 (BP Location: Right upper arm, Patient Position: Sitting) Comment:142/76 repeat after 5 minutes | Pulse 75 | Temp 97.3 F (Temporal) | Resp 20| Wt (!) 111.1 kg (245 lb) | SpO2 95% | BMI 33.23 kg/m Constitutional: Patient appears in no apparent distress. Alert and oriented x 3.Moderately obeseneck: Thyroid normal. Neck supple. No JVD present. No thyromegaly present.Cardiovascular: Normal rate, regular rhythm, S1 normal and S2 normal. PMI is notdisplaced. Exam reveals no gallops, murmurs or rubs. No peripheral edema.Pulses: Carotid pulses 2+ bilaterally with no bruits. Radial pulses 2+bilaterally. Dorsalis pedis pulses 2+ bilaterally.Pulmonary/Chest: Breath sounds normal. No audible wheezes rales or rhonchi. Nochest tenderness to palpation.Abdomen: Soft. Bowel sounds are normal. No palpable mass. There is no palpablesplenomegaly or hepatomegaly. There is no tenderness.Musculoskeletal: Appropriate gait for age.Neurological: Grossly non focal.Genito-urinary exam deferredSkin: Skin is warm. No cyanosis. No jaundice.EKG: Sinus rhythm, 67 bpm, RBBB, right axis deviation.ASSESSMENT/PLAN:Angina at rest (Primary) Symptoms concerning for unstable angina. Discussed with patient. He iscurrently asymptomatic and hemodynamically stable in office. His ECG does notdemonstrate acute ST segment changes. I recommend that he goes to the ER for further evaluation with CXR, full set oflabs, including troponin trend and if negative, Lexiscan stress test tomorrowa.m. He understands that if his cardiac enzymes are abnormal, he will likely needrepeated cardiac catheterization. He is in agreement with assessment and plan. His will drive to the ER.- POCT AMB EKGRTC: After dischargeSignature: Jessica Gray MD, FACCDate: February 20, 2020Time: 1:11 PMThis document or parts of this document, were dictated using Solvesting software. Areasonable attempt at proofreading has been made to minimize errors. Please callwith any questions or corrections. Name Value Range Interpretation Code Description Data Pascale rce(s) Supporting Document(s) Procedure Social History Code Duration Value Status Description Data Source(s ) Smoking 01/25/2021 12:00:00 AM EDT Patient has never smoked co mpleted Patient has never smoked [facility] ([facility]) Alcohol intake 12/23/2020 12:00:00 AM EDT Current drinker of al cohol (finding) completed Current drinker of alcohol (finding) [facility] Smoking 10/26/2020 12:00:00 AM EDT Never Smoker completed Never S moker eCW1 ([facility]) Smoking 04/26/2020 12:00:00 AM EST Never Smoker completed Never S moker eCW1 ([facility]) Alcohol intake 03/09/2020 12:00:00 AM EST Yes completed [facility] Smoking 03/09/2020 12:00:00 AM EST Never smoker completed Never s moker [facility] Alcohol intake 02/21/2020 12:00:00 AM EST Yes completed [facility] Smoking 02/21/2020 12:00:00 AM EST Never smoker completed Never s lola [facility] Vital Signs ID Date Data Source UNK Name Value Range Interpretation Code Description Data Source(s) Systolic blood pressure 126 mm[Hg] 126 mm[Hg] M [facility]ENT ([facility]) Diastolic blood pressure 72 mm[Hg] 72 mm[Hg] [facility] ([facility]) Body height 71 [in_i] 71 [in_i] [facility] ([facility]) 5'11" [facility] 72 /min 72 /[facility] Respiratory [facility] 20 /min 20 /[facility] Body temperature 98.9 [degF] 98.9 [degF] [facility] ([facility]) Oxygen saturation in Arterial blood by Pulse oximetry 94 % 94 % [facility] ([facility]) [place] body weight 172 [lb_av] 172 [lb_av] [facility] T ([facility]) Systolic blood pressure 124 mm[Hg] 124 mm[Hg] [facility] Diastolic blood pressure 74 mm[Hg] 74 mm[Hg] [facility] Heart rate 71 /min 71 /min [facility] Body temperature 36.06 Yamile 36.06 Yamile [facility] Body height 182.9 cm 182.9 cm [facility] Body weight 113.581 kg 113.581 kg [facility] Body mass index (BMI) [Ratio] 33.96 kg/m2 33.96 kg/m2 [facility] Oxygen saturation in Arterial blood by Pulse oximetry 99 % 99 % [facility] Body mass index (BMI) [Ratio] 36.1 kg/m2 36.1 k g/m2 [facility] ([facility]) Systolic blood pressure 138 mm[Hg] 138 mm[Hg] M EDENT ([facility]) Heart rate 76 /min 76 /min [facility] ([facility]) Respiratory rate 20 /min 20 /min [facility] ( [facility]) Body temperature 98.4 [degF] 98.4 [degF] [facility] ([facility]) Oxygen saturation in Arterial blood by Pulse oximetry 99 % 99 % [facility] ([facility]) [place] body weight 172 [lb_av] 172 [lb_av] [facility] T ([facility]) Diastolic blood pressure 84 mm[Hg] 84 mm[Hg] [facility] ([facility]) Body height 71 [in_i] 71 [in_i] [facility] ([facility] 5'11" Body weight 259.00 [lb_av] 259.00 [lb_av] MED[facility] T ([facility]) Body weight 259.0 [lb_av] 259.0 [lb_av] W1 ([facility]) Body height 74 [in_i] 74 [in_i] eCW1 ([facility]) Body mass index (BMI) [Ratio] 33.25 kg/m2 33.25 kg/m2 eCW1 ([facility]) Systolic blood pressure 124 mm[Hg] 124 mm[Hg] e CW1 ([facility]) Diastolic blood pressure 76 mm[Hg] 76 mm[Hg] eCW1 ([facility]) Systolic blood pressure 140 mm[Hg] 140 mm[Hg] M EDENT ([facility]) Respiratory rate 18 /min 18 /min [facility] ( [facility]) Body temperature 97.7 [degF] 97.7 [degF] [facility] ([facility]) Oxygen saturation in Arterial blood by Pulse oximetry 96 % 96 % [facility] ([facility]) [place] body weight 172 [lb_av] 172 [lb_av] [facility] T ([facility]) Body height 71 [in_i] 71 [in_i] [facility] ([facility]) 5'11" Body weight 246.00 [lb_av] 246.00 [lb_av] [facility] T ([facility]) Body mass index (BMI) [Ratio] 34.3 kg/m2 34.3 k g/m2 [facility] ([facility]) Heart rate 71 /min 71 /min [facility] ([facility]) Diastolic blood pressure 68 mm[Hg] 68 mm[Hg] [facility] ([facility]) Body weight 251.0 [lb_av] 251.0 [lb_av] eCW1 ([facility]) Body height 74 [in_i] 74 [in_i] eCW1 ([facility]) Body mass index (BMI) [Ratio] 32.22 kg/m2 32.22 kg/m2 eCW1 ([facility]) Systolic blood pressure 108 mm[Hg] 108 mm[Hg] e CW1 ([facility]) Diastolic blood pressure 70 mm[Hg] 70 mm[Hg] eCW1 ([facility]) Systolic blood pressure 126 mm[Hg] 126 mm[Hg] [facility] Diastolic blood pressure 66 mm[Hg] 66 mm[Hg] [facility] Systolic blood pressure 157 mm[Hg] 157 mm[Hg] [facility] Diastolic blood pressure 89 mm[Hg] 89 mm[Hg] [facility] Heart rate 58 /min 58 /min [facility] Body temperature 36.78 Yamile 36.78 Yamile [facility] Oxygen saturation in Arterial blood by Pulse oximetry 99 % 99 % [facility] Respiratory rate 14 /min 14 /min [facility] Body weight 110.678 kg 110.678 kg [facility] Body mass index (BMI) [Ratio] 33.09 kg/m2 33.09 kg/m2 [facility] Systolic blood pressure 158 mm[Hg] 158 mm[Hg] [facility] 142/76 repeat after 5 minutes Diastolic blood pressure 94 mm[Hg] 94 mm[Hg] [facility] 142/76 repeat after 5 minutes Heart rate 75 /min 75 /min [facility] Body temperature 36.28 Yamile 36.28 Yamile [facility] Respiratory rate 20 /min 20 /min [facility] Body weight 111.131 kg 111.131 kg [facility] Body mass index (BMI) [Ratio] 33.23 kg/m2 33.23 kg/m2 [facility] Oxygen saturation in Arterial blood by Pulse oximetry 95 % 95 % [facility] Body temperature 97.9 [degF] 97.9 [degF] [facility] ([facility]) Oxygen saturation in Arterial blood by Pulse oximetry 96 % 96 % [facility] ([facility]) Respiratory rate 18 /min 18 /min [facility] ( [facility]) [place] body weight 172 [lb_av] 172 [lb_av] [facility] T ([facility]) Systolic blood pressure 128 mm[Hg] 128 mm[Hg] M EDENT ([facility]) Diastolic blood pressure 78 mm[Hg] 78 mm[Hg] [facility] ([facility]) Body height 71 [in_i] 71 [in_i] [facility] ([facility] 5'11" Body weight 241.25 [lb_av] 241.25 [lb_av] MED[facility] T ([facility]) Body mass index (BMI) [Ratio] 33.6 kg/m2 33.6 k g/m2 [facility] ([facility]) Heart rate 72 /min 72 /min [facility] ([facility]) Patient Treatment Plan of Care Planned Activity Planned Date Details Description Data Source (s) Tamsulosin hydrochloride 0.4 MG Oral Capsule 12/13/2020 12:00:00 AM EDT [facility] Losartan Potassium 25 MG Oral Tablet 12/09/2020 12:00:00 AM EDT [facility] EPINEPHrine (EPIPEN) 0.3 MG/0.3ML SOAJ 11/01/2020 12:00:00 AM EDT [facility] doxycycline hyclate 50 MG Oral Capsule 10/26/2020 12:00:00 AM EDT [facility] doxycycline hyclate 50 MG Oral Capsule 10/26/2020 12:00:00 AM EDT eC1 ([facility]) Ticagrelor 90 MG Oral Tablet 07/19/2020 12:00:00 AM EDT [facility] carvedilol 3.125 MG Oral Tablet 07/19/2020 12:00:00 AM EDT [facility] atorvastatin 40 MG Oral Tablet 07/19/2020 12:00:00 AM EDT [facility] atorvastatin 40 MG Oral Tablet 02/04/2020 12:00:00 AM EDT [facility] Ticagrelor 90 MG Oral Tablet 12/03/2019 12:00:00 AM EDT [facility] carvedilol 3.125 MG Oral Tablet 12/03/2019 12:00:00 AM EDT [facility] Aspirin 81 MG Delayed Release Oral Tablet 06/06/2019 12:00:00 AM ES T [facility] 24 HR Testosterone 0.0833 MG/HR Transdermal Patch [facility]
--- OUTSIDE RECORDS SUMMARY | 2021-01-26 15:44 | CCD ---
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 Role Phone FRANCESCA STILL MD [...] Unavailable WILFREDO-SAPPHIRE, TREASURE DO Unavailable Unavailable WILFREDO-SAPPHIRE, TREASUER DO Unavailable Unavailable WILFREDO-SAPPHIRE, TREASURE DO Unavailable [...] Unavailable Unavailable WILFREDO-SAPPHIRE, TREASURE DO Unavailable Unavailable WILFREDO-SAPHPIRE, TREASURE DO Unavailable Unavailable WILFREDO-SAPPHIRE, TREASURE DO [...] LUONG MD Unavailable Unavailable Francia Hope MD [facility] Unavailable Chitnis MD, S Subhanir Unavailable Jayy MOSER, S Subhanir Unavailable Jayy MOSER, S Subhanir Unavailable + Jayy MOSER, S Subhanir Unavailable + Jessica Sanchez MD Unavailable Unavailable Jessica Sanchez MD Unavailable Unavailable Jessica Sanchez MD Unavailable Unavailable Jessica Sanchez MD Unavailable Unavailable Jessica Sanchez MD Unavailable Unavailable Jesisca Sanchez MD Unavailable Unavailable Jessica Sanchez MD [...] is protected by Article 27-F of the [facility] Public Health law. If you continue you may have access to information: Regarding HIV / AIDS; Provided by facilities licensed or operated by the [facility] Office of Mental Health; or Provided by the [facility] Office for People With Developmental Disabilities. If such information is present, then the following [facility] mandated warning applies: This information has [...] law may result in a fine or alf sentence or both. A general authorization for the release of medical or other information is NOT sufficient authorization for further disc losure. Family History Family Member Name Family Member Gender Family Member Status Date o f Status Description Data Source(s) Unknown Male Problem [facility] ([facility]) Unknown Male Problem [facility] ([facility]) Unknown Female Encounters Encounter Providers Location Date Indications Data Source(s ) Outpatient Attender: TREASURE CHIN DO [facility] 01/25/2021 03:20:00 PM EDT [facility] ([facility] Outpatient Attender: Jessica Sanchez MD [facility] 12/23/2020 12:00:[address] [facility] Outpatient Attender: TREASURE CHIN DO [facility] 11/11/2020 03:40:00 PM EDT [facility] ([facility]) [place] [address] [address] 10/26/2020 12:00:00 AM EDT eCW1 ([facility]) [facility] 08/19/19 10:16:44 AM EDT - 08/18/2020 11:10:09 AM EDT [facility] Outpatient Attender: TREASURE CHIN [facility] 06/23/2020 08:20:00 AM EST [facility] ([facility]) [place] [address] [facility] [address] 04/26/2020 12:00:00 AM EST eCW1 ([facility] 03/15/[facility] 02:37:[address] [facility] Outpatient Attender: TREASURE CHIN [facility] 03/10/2020 08:00:00 AM EST [facility] ([facility]) [facility]: [facility] 03/09/2020 12:00:[address] [facility] Outpatient Attender: FRANCESCA STILL MDAtten joni: SIRISHA LUONGAttender: SIRISHA LUONG MDAttender: Carol Hope MDAdmitter: SIRISHA LUONG MD [id number]-[id number] 02/20/2020 11:32:21 PM EST - 02/21/2020 03:20:00 PM EST [facility] Patient discharged. Outpatient Attender: Jessica Sanchez MD [facility] 02/20/20 12:00:00 AM EST - 02/20/2020 01:48:37 PM EST [facility] Outpatient Attender: TREASURE CHIN [facility] 11/28/2019 10:20:00 AM EDT [facility] ([facility]) Immunizations Vaccine Date Status Description Data Source(s) COVID-19 VACC, MRNA([employer])/PF 01/12/2021 12:00:00 AM EDT completed [facility] COVID-19 VACCINE Pfizer 01/12/2021 12:00:00 AM EDT completed [facility] Vaccine Series Complete: YESThis Data wa s Submitted to [facility] Via adQ. COVID-19 VACCINE [facility] 06/29/2020 12:00:00 AM EDT completed [facility] Vaccine Series Complete: YESThis Data wa s Submitted to [facility] Via adQ. COVID-19 VACCINE [facility] 06/08/2020 12:00:00 AM EST completed [facility] Vaccine Series Complete: NOThis Data was Submitted to [facility] Via adQ. Medications Medication Brand Name Start Date Product [...] 12/23/2020 12:00:00 AM EDT ORAL active [facility] 25 mg 12/15/2020 12:00:00 AM EDT tablet 90 TAKE ONE TABLET BY MOUTH NIGHTLY TAKE ONE TABLET BY MOUTH NIGHTLY SOLD: 12/20/2020 [facility] Tamsulosin hydrochloride 0.4 MG Oral Capsule tamsulosi n (FLOMAX) 0.4 MG CAPS tamsulosin (FLOMAX) 0.4 MG CAPS 12/13/2020 12:00:00 AM EDT 0.4 mg O ral active Take 0.4 mg by mouth daily [facility] Losartan Potassium 25 MG Oral Tablet losartan (COZAAR) 25 MG tablet losartan (COZAAR) 25 MG tablet 12/09/2020 12:00:00 AM EDT 25 mg Oral active Take 1 tablet (25 mg total) by mouth nightly [facility] 0.3 ML Epinephrine 1 MG/ML Auto-Injector [Epipen] Epipen 2-P ak 11/01/2020 12:00:00 AM EDT active M EDENT ([facility]) 0.3 mg/0.3 mL 11/01/2020 12:00:00 AM EDT auto-injector 2 INJECT ONCE IN ANTEROLATERAL THIGH, MAY REPEAT AFTER 5-15 MINUTES IF SYMPTOMS PERSIST INJECT ONCE IN ANTEROLATERAL THIGH, MAY REPEAT AFTER 5-15 MINUTES IF SYMPTOMS PERSIST SOLD: 11/03/2020 Brent Gao EPINEPHrine (EPIPEN) 0.3 MG/0.3ML [facility] [id number] 11/01/2020 12:00:00 A M EDT active INJECT ONCE IN ANTEROLATERAL THIGH MAY REPEAT AFTER 5 15 MINUTES IF SYMPTOMS PERSIST [facility] doxycycline hyclate 50 MG Oral Capsule doxycycline ( BRAMYCIN) 50 MG capsule doxycycline (VIBRAMYCIN) 50 MG capsule 10/26/2020 12:00:00 AM EDT 5 0 mg Oral active Take 50 mg by mouth daily [facility] doxycycline hyclate 50 MG Oral Capsule DOXYCYCLINE [...] {capsule} active Doxycycline Hyclate 50 MG eCW1 ([facility]) doxycycline hyclate 50 MG Oral Capsule DOXYCYCLINE [...] tablet (40 mg total) by mouth daily [facility] Ticagrelor 90 MG Oral Tablet ticagrelor (BRILINTA) 90 MG TABS ticagrelor (BRILINTA) 90 MG TABS 07/19/2020 12:00:00 AM EDT 90 mg Oral active Take 1 tablet (90 mg total) by mouth 2 (two) times a day [facility] carvedilol 3.125 MG Oral Tablet carvedilol (COREG) 3.1 25 MG tablet carvedilol (COREG) 3.125 MG tablet 07/19/2020 12:00:00 AM EDT 3.125 mg Oral active Take 1 tablet (3.125 mg total) by mouth 2 (two) times a day with meals [facility] atorvastatin 40 MG Oral Tablet ATORVASTATIN CALCIUM [...] Strength 03/10/2020 12:00:00 AM EST completed [facility] ([facility]) technetium sestamibi (CARDIOLITE) injection 11.1 millicurie 02/21/2020 02:00:00 PM EST 11.1 mCi Intravenous completed 11.1 millicurie, Intravenous, Once, 02/21/20 at 1400, For [address] [facility] Medication administered onsite technetium sestamibi (CARDIOLITE) injection 34 millicurie 02/21/2020 02:00:00 PM EST 34 mCi Intravenous completed 34 millicurie, Intravenous, Once, 02/21/20 at 1400, For [address] [facility] Medication administered onsite Fluorometholone 1 MG/ML Ophthalmic Suspe nsion fluorometholone (FML) 0.1 % ophthalmic suspension 1 drop fluorometholone (FML) 0.1 % ophthalmic s uspension 1 drop 02/21/2020 09:00:00 AM EST 1 [drp] active 1 drop, Right Eye, 4 times daily, First dose on 02/21/[address] [facility] Medication administered onsite atorvastatin 40 MG Oral Tablet atorvastatin (LIPITOR) tablet 40 mg atorvastatin (LIPITOR) tablet 40 mg 02/21/2020 09:00:00 AM EST 40 mg Oral active 40 mg, Oral, Daily, First dose on 02/21/[address] [facility] Medication administered onsite Aspirin 81 MG Delayed Release Oral Tablet aspirin EC t ablet 81 mg aspirin EC tablet 81 mg 02/21/2020 09:00:00 AM EST 81 mg Oral activ e 81 mg, Oral, Daily, First dose on 02/21/[address] [facility] Medication administered onsite 60 ACTUAT formoterol fumarate 0.005 MG/A CTUAT / mometasone furoate 0.2 MG/ACTUAT Metered Dose Inhaler mometasone-formoterol (DULERA) 200-5 MCG/ACT inhaler 2 puff mometasone-formoterol (DULERA) 200-5 MCG/ACT inhaler 2 puff 02/21/2020 08:00:00 AM EST 2 {puff} Inhalation active 2 puff, Inhalation, 2 times daily, First dose on 02/21/[address] [facility] Medication administered onsite Ticagrelor 90 MG Oral Tablet ticagrelor (BRILINTA) tab let 90 mg ticagrelor (BRILINTA) tablet 90 mg 02/21/2020 01:45:00 AM EST 90 mg Oral active 90 mg, Oral, 2 times daily, First dose on 02/21/20 at 0145 [facility] Medication administered onsite regadenoson (LEXISCAN) solution 0.4 mg [id number] 02/21/2020 01:4 0:00 AM EST 0.4 mg Intravenous completed 0.4 mg, Intravenous, Once, 02/21/20 at 0140, For 1 dose, [employer]
No Caffeine, Theophylline, or Dipyridamole (Aggrenox) for 12 hours prior to dose. If patient has had any of these, contact MD immediately
[facility] Medication administered onsite Albuterol 0.83 MG/ML Inhalant Solution a lbuterol (PROVENTIL) nebulizer solution 2.5 mg albuterol (PROVENTIL) nebulizer solution 2.5 mg 2019 01:25:19 AM EST 2.5 mg active 2.5 mg, Nebulization, RT every 4 hours as needed, wheezing, shortness of breath, Starting 02/21/[address] [facility] Medication administered onsite Aspirin 81 MG Chewable Tablet aspirin chewable tablet 162 mg aspirin chewable tablet 162 mg 02/21/2020 12:05:00 AM EST 162 mg Oral comp leted 162 mg, Oral, Once, 02/21/20 at 0005, For [address] [facility] Medication administered onsite Nitroglycerin 0.02 MG/MG Topical Ointmen t nitroglycerin (NITROSTAT) 2 % ointment 0.5 inch nitroglycerin (NITROSTAT) 2 % ointment 0.5 inch 2019 12:05:00 AM EST 0.5 g Topical completed 0.5 in ch (0.5 g), Topical, Once, 02/21/20 at 0005, For 1 dose
1 inch = [address]
[facility] Medication administered onsite 10 ML Atropine Sulfate [...] or 0.04 mg/kg. Max of [address]
[facility] Medication administered onsite Tamsulosin hydrochloride 0.4 MG Oral Capsule Tamsulosin HCL 02/17/2020 12:00:00 AM EST active [facility] ([facility] atorvastatin 40 MG Oral Tablet ATORVASTATIN CALCIUM [...] tablet (40 mg total) by mouth daily [facility] 1 % 12/16/2019 12:00:00 AM EDT foam [...] 2 (two) times a day with meals [facility] Ticagrelor 90 MG Oral Tablet ticagrelor (BRILINTA) 90 MG TABS ticagrelor (BRILINTA) 90 MG TABS 12/03/2019 12:00:00 AM EDT 90 mg Oral active Take 1 tablet (90 mg total) by mouth 2 (two) times a day [facility] Cephalexin 500 MG Oral Capsule CEPHALEXIN 11/27/2019 12:00:00 AM EDT capsule 21 TAKE ONE CAPSULE BY MOUTH THREE TIMES A DAY UNTIL GONE TAKE ONE CAPSULE BY MOUTH THREE TIMES A DAY UNTIL GONE SOLD: 11/27/2019 [facility] Cephalexin 500 MG Oral Capsule Cephalexin 11/27/2019 12:00:00 AM EDT ORAL completed [facility] ([facility]) Aspirin 81 MG Delayed Release Oral Tablet aspirin 81 M G EC tablet aspirin 81 MG EC tablet 06/06/2019 12:00:00 AM EST 81 mg Oral aborted Take 1 tablet (81 mg total) by mouth daily [facility] 24 HR Testosterone 0.0833 MG/HR Transdermal Patch Test osterone 2 MG/24HR PT24 Testosterone 2 MG/24HR PT24 2.[address] 2.5 mg on the skin [facility] Insurance Providers Payer name Policy type / Coverage type Policy ID Covered green party ID Covered green party's relationship to garces Policy Garces Plan Information [facility] [id number] WI2 [id number] [facility] [id number] WI2 [id number] [place] 306/806 [id number] WI2 [id number] [employer] [id number] SP [id number] [place] 306/806 [id number] SP [id number] [place] 306/806 [id number] SP [id number] [employer] [id number] SP [id number] [place]PO 302/307 [id number] WI2 [id number] [employer] [id number] SP [id number] MEDICARE [id number] xxxxxxxxxxx [id number] MEDICARE [id number] [facility] [id number] EXCELLUS H [id number] Self [id number] [facility] U[facility]W [employer] [id number] Family Dependent HVL [id number] [employer] U/W Commercial [id number] Family Dependent HVL [id number] [facility] U[facility] Commercial 411 Family Dependen t [facility] U[employer]W [employer] [id number] Family Dependent HVL [id number] [employer] U/W Commercial [id number] Family Dependent HVL [id number] [place] [id number] [facility] [id number] La [employer] [id number] Family Dependent HVL [id number] La [employer] [id number] Family Dependent HVL [id number] La [employer] [id number] Family Dependent HVL [id number] [facility] [employer] [id number] Family Dependent HVL [id number] La [employer] [id number] Family Dependent HVL [id number] La Gonzalezield [employer] [id number] Family Dependent HVL [id number] La [employer]ield [employer] [id number] Family Dependent HVL [id number] La [employer] [id number] Family Dependent HVL [id number] La [employer] [id number] Family Dependent HVL [id number] La Gonzalezshield [employer] [id number] Family Dependent HVL [id number] [facility] [employer] [id number] Family Dependent HVL [id number] [facility] [employer] [id number] Family Dependent HVL [id number] [facility] [employer] [id number] Family Dependent HVL [id number] [facility] [employer] [id number] Family Dependent HVL [id number] [employer] [id number] SP [id number] CIGNA [id number] xxxxxxxxxxx [id number] CIGNA [id number] Charlette [id number] MVP HEALTH CARE [id number] SP [id number] [place] BCBS P UNAVAILABLE P UNAV AILABLE MEDICARE [id number] SP [id number] [employer] [id number] WI2 U [id number] [employer] [id number] WI2 U [id number] CIGNA/MVP/CONN GEN/PREFE O [id number] S [id number] [employer] [id number] SP [id number] SELF PAY ONLY [employer] O [id number] S [id number] [facility] [employer] [id number] Self VYA [id number] La [facility] [employer] [id number] Self VYA [id number] La [facility] [employer] [id number] Self VYA [id number] [facility] [employer] [id number] Self VYA [id number] [facility] [employer] [id number] Self VYA [id number] [facility] [employer] [id number] Self VYA [id number] [facility] [employer] [id number] Self VYA [id number] [facility] [employer] [id number] Self VYA [id number] [facility] [employer] [id number] Self VYA [id number] [facility] [employer] [id number] Self VYA [id number] [facility] [employer] [id number] Self VYA [id number] LA [facility] B [id number] P HVL [id number] [facility] U/[employer] Commercial [id number] Self VYA [id number] La Gonzalezosvaldo [employer] [id number] Self VYA [id number] La Gonzalezosvaldo [employer] [id number] Self VYA [id number] La Gonzalezosvaldo [employer] [id number] Self VYA [id number] La Gonzalezosvaldo [employer] [id number] Self VYA [id number] La Gonzalezosvaldo [employer] [id number] Self VYA [id number] La Gonzalezosvaldo [employer] [id number] Self VYA [id number] [facility] [employer] Commercial 80 Self BS [place] Medigap Part B [id number] Self BS [place] Commercial [id number] Family Dependent [place] BC[place] P [id number] P VYA [id number] [facility] [id number] Problems, Conditions, and Diagnoses Code Display Name Description Problem Type Effective Dates Data Source(s) I10 Essential (primary) hypertension Essential (primary) h ypertension Diagnosis 12/23/2020 10:14:[address] [facility] I25.10 Atherosclerotic heart diseas e of [place] coronary artery without angina pectoris Atherosclerotic heart disease of [place] Diagnosis 12/23/2020 10:14:[address] [facility] R06.02 Shortness of breath Shortness of breath Diagnosis 0 08/18/2020 10:16:[address] [facility] D86.9 Sarcoidosis, unspecified Sarcoidosis, unspecified Diag nosis 08/18/2020 10:16:[address] [facility] R07.2 Precordial pain Precordial pain Diagnosis 02/20/2020 11:3 2:21 PM [facility] I20.8 Other forms of angina pectoris Other forms of angina p ectoris Diagnosis 02/20/2020 11:47:53 AM [facility] J45.40 Moderate persistent asthma Moderate persistent asthma Problem 01/25/2021 12:00:00 AM EDT [facility] ([facility]) I10 Hypertension, benign Hypertension, benign [id number] 12/23/2020 12:00:[address] [facility] Z12.83 [id number] Screening exam for skin cancer Problem 10/25/2020 12:00:00 AM EDT eCW1 ([facility]) J45.909 Asthma Asthma [id number] 02/21/2020 12:00:00 AM ES T [facility] D86.9 Sarcoidosis Sarcoidosis [id number] 02/21/2020 12:00:00 AM [facility] R07.2 Chest pain, precordial Chest pain, precordial [id number] 02/21/2020 12:00:00 AM [facility] C44.90 Skin cancer Skin cancer [id number] 02/20/2020 12:00:00 AM [facility] Surgeries/Procedures Procedure Description Date Indications Data Source(s) OFFICE OUTPATIENT VISIT 25 MINUTES 01/25/2021 12:00:00 AM EDT [facility] ([facility]) Omt 9-10 Body Regions 11/11/2020 12:00:00 AM EDT [facility] ([facility]) OFFICE OUTPATIENT VISIT 15 MINUTES 11/11/2020 12:00:00 AM EDT [facility] ([facility]) Omt 7-8 Body Regions 06/23/2020 12:00:00 AM EST [facility] ([facility]) OFFICE OUTPATIENT VISIT 15 MINUTES 06/23/2020 12:00:00 AM EST [facility] ([facility]) Omt 7-8 Body [place]ions 03/10/2020 12:00:00 AM EST [facility] ([facility]) MYOCARDIAL SPECT MULTIPLE STUDIES <td>NM CARDIAC GATED SPEC IMG EFWM</td><td>Routine</td><td>02/21/2020 12:54 PM EST</td><td></td><td> </td> 02/21/2020 05:54:[address] [facility] CV STRS TST XERS&/OR RX CONT ECG PHYS SI&R <td>STRESS TEST, CARDIOVASCULAR</td><td>Routine</td><td>02/21/2020 11:45 AM EST</td><td></td><td></td> 02/21/2020 04:45:55 PM EST [facility] ECHO TTHRC R-T 2D W/WOM-MODE COMPL SPEC&COLR DOP <td>E CHOCARDIOGRAM TRANSTHORACIC</td><td>Routine</td><td>02/21/2020 9:51 AM EST</td><td></td><td> </td> 02/21/2020 02:51:[address] [facility] ECG ROUTINE ECG W/LEAST 12 LDS TRCG ONLY W/O I&R <td>E CG 12- LEAD</td><td>Routine</td><td>02/21/2020 8:13 AM EST</td><td></td><td></td> 02/21/2020 01:13:45 PM EST [facility] TROPONIN QUANTITATIVE <td>TROPONIN I</td><td>STAT< /td><td>02/21/2020 7:21 AM EST</td><td></td><td> </td> 02/21/2020 12:21:[address] [facility] [address] THORAX W/O CONTRAST MATERIAL <td>CT CHEST WO CONTRAST</td><td>Routine</td><td>02/21/2020 2:31 AM EST</td><td></td><td> </td> 02/21/2020 07:31:[address] [facility] CV STRS TST XERS&/OR RX CONT ECG PHYS SI&R <td>STRESS TEST, CARDIOVASCULAR</td><td>Routine</td><td>02/21/2020 1:24 AM EST</td><td></td><td></td> 02/21/2020 06:24:57 AM EST [facility] XR CHEST PA AND LATERAL <td>XR CHEST PA AND LATERAL</td><td>STAT</td><td>02/20/2020 4:49 PM EST</td><td></td><td> </td> 02/20/2020 09:49:[address] [facility] TROPONIN QUANTITATIVE <td>POCT TROPONIN</td><td>Ro utine</td><td>02/20/2020 2:04 PM EST</td><td></td><td> </td> 02/20/2020 07:04:[address] [facility] ECG ROUTINE ECG W/LEAST 12 LDS TRCG ONLY W/O I&R <td>E CG 12- LEAD</td><td>STAT</td><td>02/20/2020 1:43 PM EST</td><td></td><td></td> 02/20/2020 06:43:44 PM EST [facility] NT PRO BNP <td>NT PRO BNP</td><td>STAT< /td><td>02/20/2020 1:43 PM EST</td><td></td><td> </td> 02/20/2020 06:43:[address] [facility] THROMBOPLASTIN TIME PARTIAL PLASMA/WHOLE BLOOD <td>APTT</td><td>STAT</td><td>02/20/2020 1:43 PM EST</td><td></td><td> </td> 02/20/2020 06:43:[address] [facility] PROTHROMBIN TIME <td>PROTIME-INR</td><td>STAT </td><td>02/20/2020 1:43 PM EST</td><td></td><td> </td> 02/20/2020 06:43:[address] [facility] BLOOD COUNT COMPLETE AUTO&AUTO DIFRNTL WBC COUNT <td>C BC AND DIFFERENTIAL</td><td>STAT</td><td>02/20/2020 1:43 PM EST</td><td></td><td> </td> 02/20/2020 06:43:[address] [facility] COMPREHENSIVE METABOLIC PANEL <td>COMPREHENSIVE METABO LIC PANEL</td><td>STAT</td><td>02/20/2020 1:43 PM EST</td><td></td><td> </td> 02/20/2020 06:43:[address] [facility] ECG ROUTINE ECG W/LEAST 12 LDS W/I&R <td>POCT AMB EKG</td><td>Routine</td><td>02/20/2020 1:10 PM EST</td><td> Angina at rest</td><td> </td> 02/20/2020 06:10:00 PM EST Angina at rest [facility] Angina at rest Omt 7-8 Body [place] 11/28/2019 12:00:00 AM EDT SERG[facility] ([facility]) Results ID Date Data Source [id number] 03/15/2020 02:37:58 PM EST [facility] NT INFORMATIONPatient MRN Name Date of Age Gend*PT [id number] Rashid Machado 1950 70 years M ---PT Location Admission Date/Time Visit ID Attending Provider --- --- --- --- EPI ID CSN Admitting Provider [id number] ---Addended by: JESSICA SANCHEZ on: 03/15/2020 02:37 PM Modules accepted: Orders Name Value Range Interpretation Code Description Data Pascale rce(s) Supporting Document(s) ID Date Data Source [id number] 02/21/2020 05:36:37 PM EST [facility] NT INFORMATIONPatient MRN Name Date of Age Gend*PT [id number] Rashid Machado 1950 70 years M OBSPT Location Admission Date/Time Visit ID Attending [id number] 02/20/20 2332 --- --- EPI ID CSN Admitting Provider [id number] Sirisha Luong MD([id number]) Attestation signed by Francesca Still MD at 02/21/2020 5:36 PMI saw and evaluated the patient and reviewed PA's note. I agree with thehistory, physical and medical decision making with the following additions,exceptions, and/or observations:noneSignature: Francesca Still MDDate: February 21, 2020Time: 5:36 PM -- [facility] DISCHARGE SUMMARYPatient Name: Rashid Machado of : 1950 Age 70 yearsPrimary Physician: TREASURE LEARY DO PCP Taizcceue Date: 02/20/2020 Discharge Date: 02/21/2020 02/21/2020He will be discharged from 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 Left ventricular ejection dtiswiyo77%Consultants:NoneRecent Labs:BMP:Lab ResultsComponent Value Date NA 141 02/20/2020 [...] rce(s) Supporting Document(s) ID Date Data Source [id number] 02/21/2020 01:02:54 PM EST [address] [address]Qojsdha Name: RASHID SANMDOB: 1950Sex: MOrdering Provider: SIRISHA Cainhojenn Prov: SIRISHA LUONGRefgabriel Provider: Procedure Performed: NM CARDIAC GATED SPEC IMG EFWMExam Date: 02/21/2020 12:54MRN: [id number] Number: [id number] Class: OutpatientAccount #: [id number] for Exam: Chest tightness or burning, intermediate [...] CAL VALLES On 02/21/2020 1:02 PMWorkstation ID: [id number] Name Value Range Interpretation Code Description Data Pascale rce(s) Supporting Document(s) ID Date Data Source [id number] 02/21/2020 10:02:[address] [facility] Name Value Range Interpretation Code Description Data Pascale rce(s) Supporting Document(s) EKG [facility] SRDRYc0qYuULHzOmh3YvUlDjPZRzTZ1rllh1X7J4nLLoS4NgnQOzc9wpK0SuN2MnWQZaVIBUXT0HdAOr jb2 [file] 0e6yzNev/Hk/7J74lx3kU6se1yBPjYvm4VW+n+ngKJeLAhP6s+federal district clerk+3zjTORlXmYTWPgS9psIe/Y9d5M8 [file] fjdHNyu/o0GOsuPvYyyaMpOEUQS0Ov6u0NlTi0vV06kQrWtLKWvi4oge/P2SiH8G5r2HCe0uDj07/Génesis [file] HCFHycE/U/Y8GhkOcBlEiBHXnenR3R/gOwXV6WMprstSmKoWGujMRm9EzQWc/kDIQgnEhJbg+cTg+asphalt roller person [file] e5H18iQ20m+694uK842vkw9d1t03t+87526Xv9G7l5 4xn393q/O/05+4md/sdMh45c9/TnbHM7/bko+2u075sf1FtH9Zn0+6xHCljpkX1WRffn4OKh3t6lShl/ 6/kMpD7TwmzHo3p1vC/TP75w5wxosN6JppA/cZ+O+1vgNa8KkU70GQhSU70i+4Z36oVp+t4y9Ke+VuUz Xiqz+6tfqT/5fnRPh8Iv4Mg6Q/qN85/08sC0jj+f+m zg3UIyC9QlqNffPNfW/tQ35zE/9c1+7qe+twy9QX/qW6l+T71pBhgZ99/91ahsu781Fw9Ug8fFtiA+ng pv1IF3rE2bG+yG0HO3J06o673ibdw31hrv1wXhf2aZ6jqX/J2z3563muQ0+f3wkmuIm8090AX/jyq/+n HMudcY+366R9sWTMKwhImhv9Ac+m5L/Knvt6s3z3fc T+pHghK4Q072nI/Jo5rRhJ0U/QTuJ/y3btfQ7wlhf5pIL7/pbp6ibzoZ/Noz9ae+t/k587fZTy/i7Af5 yga9QX/po16l3MiEc/psBan+jUwYFV35F3R1/FPmuh8ea52E9c6bY2lJp8OFuDqI3BEM2+mjKUhh5LH1 tn/AXK74N0qqCZa/kv25ym3dLoadO5sA/YL+jN+Zx5 6wl4uQS/T+mU2ap2rW+/imX73d6AH5c75lm1nIf/yA0ggN04vx1+MrT+vo2Nk8Eg+g7/oA0wJMRcon5P oXXxJ1qv+chI5rfu1hP+gVeoV+fO+5c2ao290V/guwDZJq0MtkR5pEVY8TavP/gVqoLqqLWmm5z017cw GK5CD5Qo/f+/8g4czb5Cuwim7Zdly/vUhpgZ3cwt+v Q190GtyufU5GT+9qE0301lc4NU7mS4wLnmp0b4uG1rsAvita1Xf6O3yI2rOn6RA1RgtkoqQ1CD4Dewvf QI/xuzF+N7nmszie+yrLqC/sK91tT+ksm2G2vH6Xr2Ai1Vk5BC+B66q0MY5EsV+Qhijti2Hv2kuvM44x 9Hi+rA5CFwTSbQUwz2G+kau65tsug6H+wgsklRNq6C ftq+zzaV/dMvSYrxzzVWC+lk1f3JKcftf/x3wVmK/LvqfohUloGUS6uTbW+CwrEfEpt9q1/xN2CFn32C O/j+74O1QFs9ZM7XK8vL3wL0Vl+j2Nf0B9tyzPW/QG/YJ+Qb+hP/H65uh4XUl7JOxw98+I/I9rg4P2/V a8NM7n54ws0YC+q/PtOdJ/dcvQD+qZ4PT62/3rec7+ /u9zxoi1ha9TjpWb52Phq68a6nzAXT+tT//CQMXr1Ge8yF+bnlz2Mdzi/og9RbNB/9UtQ7+lK9Ux3Qn1 qK+esoy5rg4s3/bYV+l/O/vgeqMSH4Yc5Vg1xO0GU5Re6Rz9Ks1DbwS/od/QO/QOfUDf/Octavia/6TC4A40 ZzM1RR6Zg1VV1Bx9m029tWseVcDx23apofpl42C/nu fMQm01bWe85O5e/F5MI8H2Qskjk5hiH6lTmUMw1A/oB/QT+gm9QW/QL+rI7Cb5yIqnIu4UhZL09A51cv G+C/CRIviTfd07Up4uFaN+Rpygtdbhl724d1X0Vc6n9h0qY23V817bZy/3ansD9yqc5rzr/h3zP8N0kT /RhsTBlw3K2uB+9oapdAwJzrxuO7/8zenPI/WnP98y 5ZE8Uc9un+A6Ld527jf+vjlHB8z7uf0tA+/QO/QBfbT+3YwxXhwZ2/AqtZGcrKXTNdYm0J+cZ/b9H/vq gr90qd017KU4ta3dP6lBga62Y3/dxrRsxO4ZjZI4PfoPAn04sjx5/X3AIVe1p2dNDcO/63vLE/qJ81v3 w6Jff4HmmJf/42Ln+Y9/I/vnsa/8+BDOBoXf+ybr8q mdCQfggmvfvaznqZWF32k6wsY+DfPV0jdsJHcK8Rvi5n7+cpDUYZSwRQqW4zk/jE5hza98tO+TV8049r zC3gAgwc2Tb/s/SlQcoV7hYfTwOgjOesi7Ej/2g79k9hhrYNt4wmuu+ZRPfGFV+yBUch4oluAH4b1pJd /7SkeVX/9ssx89eAukJPqgjmj8Qz/OeZ4s4/xvfdWq bN+7GccpRepy38XTtI9qo2ajcS3D1b6SQ39tIam+qlhM2YdjWXDk/KvPnWOiS3r+U8U272a9gkB4t5+m 5ox1tctyetdDXFH/vI9yv7N80zsZi9vAJ5jgE/pw0800Dty85Um9snvq8dr3anuJry3z+5rC1Be6Pw2F 3/wXdH93GM1E2SwF9wALpXGeA01MLdH18MK5IKOyhw Jk7g7G75Q14PooA4+0r7L/pH0Vqe/ugBw5GZMPbr6vmfWcz4eTcbKx3cskrO/XkdEi3Mw6F/oNvUPvnz 3g3661x195/h6c1t+/0/h0w3F6YLJNKiAs407Q/qssT+jbPzmtv/by7ncBSnVQhujih95Cpc4Mqbdfz/ hR/c6mR4Y7onQIonpoxv7fT4jfG+m/mfM9enBDo1L6 cL4XF581p1i34ydi7kW4iCn+NNN/VeUF/MACEDONIAN+56b4hIzuQ5/xo7kc+vS35+/X892Bw49Hs/3ZD1D+/LMd oMvQK/QnvlDHjj5/+q+lDSYj7TryC/lgvni5Cie/pyAQz6a6i1Ml5z59e66W3u/EU3G02RX1Q7wrRm9Y 3f74U0CcTy/VLUM/oG//5Ez/VfZP+K8m/EoA917+vf 2xM/5DBD2Fu1ARdc0Wzn0mC/3j4qyKb36hYtJ4/egSD4kJqz7PnhxTU83Zy++s6FHn6xbk+nt/xoTeoD foF/PF3973/1Yr41L03+9Z1t/bD30D5MkTlkKbdu+Rs6C/y9D39+9Zzf+VJ/QTeoPeoF/H56omMW7+UI hw9PmRiXF63u/1lpXRgo6oPe4V+f7yCPvYVlXn7M/o J/QTeoPeoF/QL+m05Pu7j65v1/VIlvZVlrW/Xv3rj5v7qJ6eaebN742klnmh1lbcX0BtovR3Ed0t9VsS pRWvihn2rAl//5r296+pQ4/ni/VXBv+HeB5q4L1K/FcG/8LDsnZDRsz2zbMkGxuju08lqK5N1aGH/t43 2FcG+8bX3nhH88R3mz8zV/WdbU/tiXaWHbc4Xn+J+k 7Ud6K+E/WF/1kvp3Z0M3R0Ux+g39Dj+U6M3/RfZV9K/4Eckp67H6sMSdhyFgBMlBT/oB/Qoz/bhN6gx/ g1jF/D+MASP5D9ROmmf/m6aC0wh/8wCDjlk7wc4+2vDmK9Sd/QD+xC9YM4Pc6Jr5Jn7Fq4J/vCpJZh1n ezLqe+t9z63d+Cxr9qGav8Ue3Ge0VF5Kt4F/oJvUFv 0C/oF/Qb+g29Q+/nIil6Qf/V8ZtZ+q9uuc/jqK+fie28FhxhcG+ufz51Bjxy/qu6ruF+FvQL+p04fd2v d+gYZ6ykSMjvKV4D4M5DS9PlJP1v/ZMW7Z+4sMUF2QYfKA5H7T0JX5YeHN9B7C3PB9Pz9Mbbk+u7ngd6 gV6gV+gV+wV7oQ5CL6M83W03Da7OazA/oXfoHfqAHv MB6YxAB4B9TeZP0Zr8avjiT29II+nyaO0sf9H00Iga45yo2NqkJKPoyqM5Iyil3Ar3QN3/fxfWty+sb1 +YOm2KJfabvxjyd6q7x6CRgqyt5MO+Qm/QG/QL+iXz965n4f2gg34d19X90EM4qX8kJ3iWeWWv0Ij8JZ 8pcm6qzJ+i1vJYuizhcdp6s67v3FboiBwGq2ZiiV9M k2LCdcE/WvBfrdn+ujXxfCs+vYp2itgek6g4jgLn+uSEe00xg4Wtv1vi/K8yr6fe+ClVTl0HlqJj4Zc8 AX2/j5b1+1hrgVZkrV8iX+gV+lN7xA9ZZ0B46RLnwV8ECJDbuZTkGg6A4xATiD21MkO1da8O8M9d07A1 F+qb9pVm+iNTivptd36ueZ1T+q0injUivlY1cq51g5 fC+E3/3xE9oORs8azKj82+/M9g6Ozk9tvi935kb+JsxjlQ9t6e+6k4kvoWalfs06+vfTXGyt+ceEqOtZ 7xxGnUv21qx0468bo6hVfms4uV76w4GbFo9cwZoM055RePO7dxh2f141x+k94R3SU70rZZZVsmb7BeZh OOmumBI7q2vFDEfbaClCxlJ/sqYx/y8Mt7bJWru8nw XseLK90KNvwrjFTaz/igA92Qyq6A3j16Lv7MWxtlxwg7a0vuN+X+iNZltaS1cnKqcYl2WHU2t5NMNnay q1HaUETb8xyY/qu8afUp/Rsr2r+oCtHt0Bbr6tiuy4gvPru/Xea7Urv+qwX/1YL/asF/iWEfw4R5SNB+ ZagYgizJ5NchWg5s0UdjMshpZ/tpf91O++qWoR/4/c D5J/QTeoPeoF/QL+e12Fo0j77dS5R8aD/klvZPbnm+992WXm+0ssaujONvQjmrn6ZT0xmfVXY5AG4bg9 4E33GmmOAz0j8vna5xcw3jn5Pya+lgkbrm5q8b6aqInR/4qI92cgM7AtMf0eHp2/+4mweewPnp16T+Pc sGvUHf+5D25v4cjRs/3/i9Q+/4fcZTUp/+0iGO7c9T n16eoDhAis7ZJSw5iZq7iv+n/mE4yq1JD4stT9gBzXSv2P/oF/Qb+t6/oF54oLGNarsaNu7nf60XJj/u knXVBiVi3Qv3An3DK/r8s+Bhn3Z7Db/qu8Aq8fdC/YJ+4Twb5+f98w74LVRwulrdZP4kJs7Jzstbu5aW ES6bymkvU4vNm7bTW2NJEUhq+6Z1mz9a2O/Q27708g Ypob6nrg7/cL9c1wczmv4Qv73ycJiN/rXA9Nmutv6JHv37qQl/T3dll5mZc5ZC5bzw+H3HU/xn5JW4xE fvj70e8FMBC/QL+kM6fq1Z7/QRcvt8rBK36A4851olbt/s/FOv3yz0etfox4OqfH/LM8qo0ncfv6r0f5 /4YcjR7E6i9Fl/PikTVu5YjZ55eu9v7/rO0bQThq63 rbb1H7GR8Pa2Aa+iS6ET8Fck9/7J7W0/b1/QL+q36Xf4c80vS+qiv2Btk1ocO762xgu7IvodH8gKhib1 N9B4IS4FpXDAs7Rv5Fo3TE/Y0G/oe//+pdh19tj7yd0I/tG4yY2NaxTheBegJbzC/YB+Qj+hN+gN+gX9 gr7jg/5s6B2/d+gDv+/6skrRO9cb6GG6oN07lU6+Regi 1vd2l/m7gFneKx6Lb3C/oFffvrXNpf5+LQO/QBffdnx/xs1mq8sr026n912c440t205g388i+3Qkbo4Q ivor6K+bctmnu8Xq8L62IT9SB79H/dct/P6PHrA/UdeL4D/XmgPw/054H+PHq+6sI8KxH6mN2X1L58B/ jJfu41jh04+PUR+Z5Mux18cov8TQ/kF9Asido65Err +yAUf44si/Bf+UR9J+o7Ud+J+u8027uvB/U5I49rTC6e5voQsBYqg/utwfsDK8uypc0N+pmpf8qgqk7B +iajv7unzq1Q+unek0hbhp7W/kt5ekmN+kJ9F+qL+AHtGhlNClaer415tNA+6IgPOuKDDv+BAy5bmR66 4oOO+HKzCunL0P0b42Q3O+qL9e2+Es3x339fnM5y1c 9Vo98f7l5i71W1205gNslQx9TT+W1w55A3TM/0jfpuzFeO+cof6DF+Hc/C3Eyzr5bzpA82u+2rm8tXC+ 54/3rbk+0iS6vh5Bo1xrsUL1r5tgz5cxn42/Wx7r0+6pZ71P0Q7L1J0md9MN2eJ/Td0eHM5fz3SEk+4v uSarz50vVz7A/o05+wvlq301mk30c0ENWLotte0df/ MlpB4MQ4cd1F/FcB/1U8A/oB/YR+Qm84v+G6C/vSwjmb2ip2CxI17B7/nfedEt0SG911D+kwB1CES8Wh 7++gvL0lBLBbSgAyFyLrVvKGDE2diZL4HUUoNchcqO6DsmFf2Cg7bqOSal/2VcC+ZpuWxX6cEH36RnoB d1FH4Ah0I/oFwVDr2I/oF/Qb+g29Q+/QB/QdT4nR/u Ольга/Of45Z6S+o7UN+0r7TKr/74ZGLk/pTIMvSnvk/reh5RuS6K1o/7Mdq/Eem/On6VSP+M4tYthW1kT8 04j374xlBhGOargOW1daVyrZj+/rWvRvr/26Soyh1CzRzPDYWk/O1nide+Vef3Sj059fr2H6/Rmb+ZZ7 /Onp6fP4I7kO3n+/9sf07M/l6C7zhh2syYUKDUO1/N ilm6jyARzmw/yrGW+a+yDTP/eDsJ6f7DTHkWV7caavzQgVO4tTHRRizzyQJiqh3Ecr4vhWW/oT/xlDr2 9Qq5ftQ64nEXChLBRocigxRbSU7ChRAUwnnOqAHxkO29QR+rID91tUDCGAWCcw+ieiBvIbn7ixmf0dsH T1Z//8bVbFC8esPdDP+g7/8eqZi6EEkTqutOUagFCx 5JgJ0H7L/Fcugd+oC+586ra72a8Yx7hd63l6Zo/IiM9xFNP/QD+km5hTnE0qqpPs/u1qAOhv14Fr4Gj+ MpsTt+FDug7/lEdM9ZFb/9oeF4/6gspk6y/qAbCY5W4/8w9IF9YN3WE7G8P7D0Zq+lPkmDoce72Q3zl9 7T5Q5kYl551UW5o1aN73xP7QelYLH3Kz02b7N7VnZP [file] Ktw3RMNsVhwgRXRXBa== ID Date Data Source [id number] 02/21/2020 09:53:[address] [facility] Name Value Range Interpretation Code Description Data Pascale rce(s) Supporting Document(s) &PDF [facility] OQFRLu9lMiEMFxEc15/FGKmnYYDlk9SfIKsjUZm1AFzhJNDsW7UdqNshASUYO3RNLXjRX1jHSeNfXnVs yKE [file] ogICAgICAgICAgICAgICAgICAgICAgICAgICAgICAgICAgICAgICAgICAgICAgICAgICAgICAgICAgIC AgICAgICAgICAgICAgICAgICAgICAgICAgICAgICAg ICAgICAgICAgDQogICAgICAgICAgICAgICAgICAgICAgICAgICAgICAgICAgICAgICAgICAgICAgICAg ICAgICAgICAgICAgICAgICAgICAgICAgICAgICAgICAgICAgICAgICAgICAgICAgICAgDQogICAgICAg ICAgICAgICAgICAgICAgICAgICAgICAgICAgICAgIC AgICAgICAgICAgICAgICAgICAgICAgICAgICAgICAgICAgICAgICAgICAgICAgICAgICAgICAgICAgIC AgDQogICAgICAgICAgICAgICAgICAgICAgICAgICAgICAgICAgICAgICAgICAgICAgICAgICAgICAgIC AgICAgICAgICAgICAgICAgICAgICAgICAgICAgICAg ICAgICAgICAgICAgDQogICAgICAgICAgICAgICAgICAgICAgICAgICAgICAgICAgICAgICAgICAgICAg ICAgICAgICAgICAgICAgICAgICAgICAgICAgICAgICAgICAgICAgICAgICAgICAgICAgICAgDQogICAg ICAgICAgICAgICAgICAgICAgICAgICAgICAgICAgIC AgICAgICAgICAgICAgICAgICAgICAgICAgICAgICAgICAgICAgICAgICAgICAgICAgICAgICAgICAgIC AgICAgDQogICAgICAgICAgICAgICAgICAgICAgICAgICAgICAgICAgICAgICAgICAgICAgICAgICAgIC AgICAgICAgICAgICAgICAgICAgICAgICAgICAgICAg ICAgICAgICAgICAgICAgDQogICAgICAgICAgICAgICAgICAgICAgICAgICAgICAgICAgICAgICAgICAg ICAgICAgICAgICAgICAgICAgICAgICAgICAgICAgICAgICAgICAgICAgICAgICAgICAgICAgICAgDQog ICAgICAgICAgICAgICAgICAgICAgICAgICAgICAgIC AgICAgICAgICAgICAgICAgICAgICAgICAgICAgICAgICAgICAgICAgICAgICAgICAgICAgICAgICAgIC AgICAgICAgDQogICAgICAgICAgICAgICAgICAgICAgICAgICAgICAgICAgICAgICAgICAgICAgICAgIC AgICAgICAgICAgICAgICAgICAgICAgICAgICAgICAg BQVvJIVeQEWjJJNgFMIeCDNrCRx0G3gfKTBlLZOkAH5oIPx4Cc4+LAlDTxVtIFY8rkOmmX7VLW4vx4Rq ELflYVCma1YiWLc1IZ9LZXRtPBgkCE2NNEfdlh2CGKJrTZIghFLUb8xtAfBhPEN7GXKiOgcrYE5ISYDd X9hkqqJjZNZlEIJHEGluGXTZUT4ENpVzQ5OpjD02TZ INCj4+QQxwrnMnNzgFMgNsBCFqx4BlFEe5LG3ZEBAiSBbiXL7GLFRavY0yAPdqIN3FEgVrUNRoUHDXDp KzS21exKWrNOh4B1IeGgHwPBPiGywdNNHcXTurXpNcAUPqRfIkFLupCV2+ID4+LHekTQ7MGAavctWgJI FwEf1DASPjVJR7SGTdtRDlMrDuXEKBHGybMI2VyMEt QHJ0rL4eZTkaXCMwMYLwX6oQNjVlbFzoQW60eLsgmgYvyVEeQJl+Fq4YEU4fv1JaDWn6mxEtYMssNPAs XYohTGLoKIKcDHQnNUV2KVL9HPAIOfAqDRKkFSKqWSzhYHXrCNCpbh9PYQVbDWYtKMIxPORbFTAiXYSr SWfdYULvLHXrXHV1WHLzECOiOM0RCbEeHFYkKVBnEB UqREOwSPXnie3TDUVnLWBnAwR8HHHhEETsJMPwHJmlJKNtJIDuBWqfXZLvVSQgYE3OPzDpVVNpMXK7Wn SfSVGmLNIasa2FJPDdAQFeADhpKTLoMFDlDRWaIVpyZMOnTBA2Oqn5KIWeVUAzHM3JZeCyTAFhDVJ2BR CsTKKvBKPlpd5WVBWlMOBfKnV9LWLiJNRnLDNuKWso BFGkWXK0KIO9BWErPAAxRB6DMaEvNLKcMXgdOxIwUTIsYSFuqz3HXQIcNHKjYHRzFVZaTNIiSSQlVHru RSHdNRB3DtdtWFNzOJTqCE9VJgTuLABuHYj4KfTyWQIvBKJhlf7HKJSdCGLtWLf4ZWPsRZDnXJDcWWab YAXkZOT4AMXuBAMsDHNsQE8FMqQcENXfYQciKBddFL ZkWKVver4MCMSoQSFnFBKgLLYrYRTvKUElWGeqVKOjMBVsKGymRQGcMXKaVG7EGpUxGUfpAUYCGos7JV thQ4l4UTBlTi8MT6Gsz0IqOnRcZMUYTJvvAV0hmcSaYEApNu7UL9bZCju5DrD4HrhaZWIxWAGmZIAnCE I8YXN0KVZ1KTBiQOKiSX8wAGK6GCcbKvY5KvS0VXXb HPFtBkQ6ZOpxGwM9TVRoKYHrLvCsTX0EMy8UWlK0ZEY4bYIlPb3KTyKgLcZUPpOgWU8GQIl= ID Date Data Source [id number] 02/21/2020 07:50:00 AM EST [facility] NT INFORMATIONPatient MRN Name Date of Age Gend*PT [id number] Rashid Machado W 1950 70 years M OBSPT Location Admission Date/Time Visit ID Attending [id number] 02/20/20 3402 --- Francesca Still MD([id number]) EPI ID CSN Admitting Provider [id number] Sirisha Luong MD([id number])Inpatient History & PhysicalRashid FieldRN: [id number] and Plan:Active Problems: Sarcoidosis Asthma Coronary artery disease Pure hypercholesterolemia Skin cancer Chest pain to rule out ACSAssessment & Plan1. 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 Patient reports that last couple of weeks he has been havingintermittent chest discomfort and yesterday sustained episode of 09-yiarenmsf-dwpkrzd chest pain, burning similar to previous presentation with heartattack in May. He took nitroglycerin with the prompt resolution of hissymptoms within 5 minutes. 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 he has been compliant [...] file Gets together: Not on file Attends alevism service: Not on file Active member of [...] suzi(s) Supporting Document(s) ID Date Data Source [id number] 02/21/2020 08:23:20 AM EST [facility] Name Value Range Interpretation Code Description Data [facility](s) Supporting Document(s) TROPONIN I <0.05 ng/mL (<0.05) [facility] [place] [facility] [place] Less than 0.05: Myocardial injury unlike lyGreater than or equal to 0.05: Highly suggestive of myocardial injuryCorrelation with rise and/or fall ofserial troponins, clinical symptomsand ECG changes is necessary. ID Date Data Source [id number] 02/21/2020 03:39:49 AM EST [address] [place], [place] [address]Hrrbtuz Name: Rashid SanmDOB: 1950Sex: MOrdering Provider: SIRISHA BRUMFIELDAuthoridayna Prov: SIRISHA BRUMFIELDReferrgemma Provider: Procedure Performed: CT CHEST WO CONTRASTExam Date: 02/21/2020 02:22MRN: [id number] Number: [id number] Class: INFORMATION: Exam: CT Chest Without Contrast [...] rce(s) Supporting Document(s) ID Date Data Source [id number] 02/21/2020 12:02:18 AM EST [facility] INFORMATIONPatient MRN Name Date of Age Gend*PT [id number] Rashid Machado 1950 70 years M OBSPT Location Admission Date/Time Visit ID Attending [id number] 02/20/20 2332 --- Sirisha Luong MD([id number]) EPI ID CSN Admitting Provider [id number] Sirisha Luong MD([id number])Provider in Triage NotesED Provider in Triage NotePatient Name: Rashid Jasso and Time of Assessment: 02/20/20, 4:06 PMChief ComplaintPatient presents with Chest Pain States took NTg yesterday is SOB, coming from the PCP office. Pt states havingsome general weakness had burning in mid chest yesterday pain free today Shortness of BreathBrief HPI: 70 years male, history of [place] with three stents placed earlier thisyearStarted with [...] chest yesterday pain free today Shortness of [id number] male comes emergency department from his cardiology office withconcerns of chest pain. Patient had complained to his director of religious activities about chestpain. He has a history of [...] complaints.History provided by: Medical records and patientLanguage vp of technology used: NoShortness of BreathAssociated symptoms: chest painAssociated symptoms: no abdominal pain, no cough, no fever, no headaches, noneck pain, no rash, no sore throat, no vomiting and no wh eezingHistoryPast Medical History:Diagnosis Date Asthma Myocardial infarction Sarcoidosis VertigoPast Surgical History:Procedure Laterality Date BLEPHAROPLASTY CARDIAC CATHETERIZATION N/A 06/05/2019 Procedure: Cardiac catheterization; Surgeon: Herrera Li MD; Laterality:N/A; CARDIAC CATHETERIZATION N/A 06/05/2019 Procedure: Coronary angiography; [facility] rgeon: Herrera Li MD; Laterality:N/A; CARDIAC CATHETERIZATION [...] seen and evaluated. Required/Additional orders were placed. [SC][address] Luong, admit to hospital. [SC]ED Course User Index[SC] Subshaneir S Jayy, MDProceduresMDMNumber of Diagnoses or Management OptionsChest pain, precordial: new and requires workupDiagnosis management comments: 70-year-old male presents to emergency departmentwith chest pain. He was seen by his director of religious activities office was requested that thepatient be evaluated [...] rce(s) Supporting Document(s) ID Date Data Source [id number] 02/20/2020 08:44:06 PM EST [facility] INFORMATIONPatient MRN Name Date of Age Gend*PT [id number] JeannetteRashid 1950 70 years M EDPT Location Admission Date/Time Visit ID Attending Provider --- --- --- --- EPI ID CSN Admitting Provider [id number] ---Attestation signed by Benny Montenegro MD at [...] BreathBrief HPI: 70 years male, history of [place] with three stents placed earlier thisyearStarted with some SOB and generalized weakness, "heart burning"Physical exam:VSSAmbulatoryNontoxPreliminary Plan:Labs, EKG, CXRThis not e was electronically signed by STACIA Kessler, 02/20/20, 4:06 PM.ED CourseSTACIA Kessler02/20/20 1607Benny Montenegro MD02/20/202043 Name Value Range Interpretation Code Description Data Pascale rce(s) Supporting Document(s) ID Date Data Source [id number] 02/20/2020 05:32:[address] [address]Wvfttdt Name: RASHID SANMDOB: 1950Sex: MOrdering Provider: MARGIE Hoover Prov: MARGIE Felix Provider: Procedure Performed: XR CHEST PA AND LATERALExam Date: 02/20/2020 16:49MRN: [id number] Number: [id number] Class: EmergencyAccount #: [id number] for Exam: chest painTechnique: PA and lateral views obtained.Comparison: 06/05/2019Findings: There is no compelling evidence of heart failure. Small left pleural effusion is suspected versus pleural reaction.IMPRESSION: Small left pleural effusion versus pleural reaction is seen. Subtle pneumonia cannot be excluded.Report electronically signed by: PERRY FRANKLIN On 02/20/2020 5:32 PMWorkstation ID: [id number] Name Value Range Interpretation Code Description Data Pascale rce(s) Supporting Document(s) ID Date Data Source [id number] 02/20/2020 02:39:[address] [facility] Name Value Range Interpretation Code Description Data Pascale rce(s) Supporting Document(s) EKG [facility] [id number] [file] [id number] ID Date Data Source [id number] 02/20/2020 02:16:05 PM EST [facility] Name Value Range Interpretation Code Description Data Pascale rce(s) Supporting Document(s) POC CTNI <0.01 ng/mL (0.01-0.07) L [facility] Less than 0.08: Myocardial injury unlike lyGreater than or equal to 0.08: Highlysuggestive of myocardial injuryCorrelation with rise and/or fall ofserial troponins, clinical symptoms,and ECG changes is necessary.PERFORMED BY [facility] CLINICAL STAFF ID Date Data Source [id number] 02/21/2020 03:45:40 AM EST [facility] Name Value Range Interpretation Code Description Data Pascale rce(s) Supporting Document(s) NT PRO BNP 34 pg/mL (0-125) [facility] ID Date Data Source [id number] 02/20/2020 02:42:41 PM EST [facility] Name Value Range Interpretation Code Description Data Pascale rce(s) Supporting Document(s) SODIUM 141 mmol/L (136-145) [facility] POTASSIUM 4.4 mmol/L (3.6-5.2) [facility] CHLORIDE 108 mmol/L (100-108) [facility] CO2 34 mmol/L (22-31) H [facility] ANION GAP (7-16) [facility] UREA NITROGEN 15 mg/dL (7-24) [facility] CREATININE 0.89 mg/dL (0.80-1.30) [facility] BUN/CREAT RATIO 16.9 RATIO (10.0-20.0) [facility] GLUCOSE 96 mg/dL (70-99) [facility] CALCIUM 9.2 mg/dL (8.4-10.2) [facility] TOTAL PROTEIN 7.2 g/dL (6.4-8.2) [facility] ALBUMIN 3.7 g/dL (3.2-4.5) [facility] GLOBULIN 3.5 g/dL (2.7-4.3) [facility] ALB/GLOB RATIO 1.1 RATIO [facility] ALKALINE PHOSPHATASE 68 U/L (45-117) [facility] BILIRUBIN,TOTAL 0.4 mg/dL (0.0-1.0) [facility] PLEASE NOTE:Total bilirubin results may be falselyelevated in patients taking Eltrombopag. AST (SGOT) 26 U/L (11-39) [facility] ALT (SGPT) 51 U/L (12-78) [facility] GFR >60 ml/min/1.73m2 (>59) [facility] GFR ( AMER) >60 ml/min/1.73m2 (>59) [facility] GFR INTERPRETATION [facility] --NORMAL KIDNEY FUNCTION OR MILD DISEASE - GFR >OR= 60CHRONIC KIDNEY DISEASE - GFR 15 - 59RENAL FAILURE - GFR <15 Est. GFR calculation based on the MDRDstudy equation, which assumes a steadystate for creatinine. Est. GFR should notbe used for medication dosing. ID Date Data Source [id number] 02/20/2020 02:42:15 PM EST [facility] Name Value Range Interpretation Code Description Data Pascale rce(s) Supporting Document(s) APTT 25.8 s (22.0-34.3) [facility] ID Date Data Source [id number] 02/20/2020 02:42:15 PM EST [facility] Name Value Range Interpretation Code Description Data Pascale rce(s) Supporting Document(s) PT 10.7 s (9.2-11.9) [facility] INR 1.02 [facility] SUGGESTED THERAPEUTIC RANGES USING INR F ORSTABILIZED ANTICOAGULATED PATIENTS:STANDARD DOSE THERAPY INR 2.0-3.0 DVT, PE, PREVENT DVT OR EMBOLISMHIGH DOSE THERAPY INR 2.5-3.5 PREVENT EMBOLISM FROM MECHANICAL HEART VALVE ID Date Data Source [id number] 02/20/2020 02:24:43 PM EST [facility] Name Value Range Interpretation Code Description Data Pascale rce(s) Supporting Document(s) WBC 6.2 10*3/uL (4.1-11.0) [facility] RBC 5.35 10*6/uL (4.60-6.10) [facility] HGB 17.3 g/dL (13.5-18.0) [facility] HCT 50.7 % (41.0-53.0) [facility] MCV 94.8 fL (80.0-95.0) [facility] MCH 32.4 pg (27.0-32.0) H [facility] MCHC 34.2 g/dL (32.0-36.0) [facility] RDW 13.1 % (10.5-14.5) [facility] PLT 178 10*3/uL (150-450) [facility] MPV 7.8 fL (7.1-10.7) [facility] NEUT % 58.4 % (35.0-75.0) [facility] LYMPH % 27.3 % (16.0-52.0) [facility] MONO % 11.3 % (0.0-8.0) H [facility] EOS % 2.3 % (0.0-5.0) [facility] BASO % 0.7 % (0.0-4.0) [facility] NEUT # 3.6 10*3/uL (1.8-7.7) [facility] LYMPH # 1.7 10*3/uL (1.2-4.8) [facility] MONO # 0.7 10*3/uL (0.0-0.8) [facility] Eosinophils [#/volume] in Blood by Automated count 0.1 10*3/uL (0.0-0 .5) [facility] BASO # 0.0 10*3/uL (0.0-0.2) [facility] ID Date Data Source [id number] 02/20/2020 01:17:34 PM EST [facility] INFORMATIONPatient MRN Name Date of Age Gend*PT [id number] Jeannette Rashid Arenas 1950 70 years M ---PT Location Admission Date/Time Visit ID Attending Provider --- --- --- --- EPI ID CSN Admitting Provider [id number] ---CARDIOLOGY OFFICE NOTEPatient: Rashid Arenas Jeannette : [...] parts of this document, were dictated using [employer] software. Areasonable attempt at proofreading has been made to minimize errors. Please callwith any questions or corrections. Name Value Range Interpretation Code Description Data Pascale rce(s) Supporting Document(s) Procedure Social History Code Duration Value Status Description Data Source(s ) Smoking 01/25/2021 12:00:00 AM EDT Patient has never smoked co mpleted Patient has never smoked [facility] ([facility]) Alcohol intake 12/23/2020 12:00:00 AM EDT Current drinker of al cohol (finding) completed Current drinker of alcohol (finding) [place] [facility] Smoking 10/26/2020 12:00:00 AM EDT Never Smoker completed Never S moker eCW1 ([facility]) Smoking 04/26/2020 12:00:00 AM EST Never Smoker completed Never S moker eCW1 ([facility]) Alcohol intake 03/09/2020 12:00:00 AM EST Yes completed [facility] Smoking 03/09/2020 12:00:00 AM EST Never smoker completed Never s moker [facility] Alcohol intake 02/21/2020 12:00:00 AM EST Yes completed [facility] Smoking 02/21/2020 12:00:00 AM EST Never smoker completed Never s lola [facility] Vital Signs ID Date Data Source UNK Name Value Range Interpretation Code Description Data Source(s) Systolic blood pressure 126 mm[Hg] 126 mm[Hg] M EDDORIS ([facility]) Diastolic blood pressure 72 mm[Hg] 72 mm[Hg] MEDENT ([facility]) Body height 71 [in_i] 71 [in_i] MEDENT ([facility]) 5'11" [facility] 72 /min 72 [facility] Respiratory rate 20 /min 20 /min [facility] ( [facility]) Body temperature 98.9 [degF] 98.9 [degF] [facility] ([facility]) Oxygen saturation in Arterial blood by Pulse oximetry 94 % 94 % [facility] [place] body weight 172 [lb_av] 172 [lb_av] MEDEN T ([facility]) Systolic blood pressure 124 mm[Hg] 124 mm[Hg] [facility] Diastolic blood pressure 74 mm[Hg] 74 mm[Hg] [facility] Heart rate 71 /min 71 /min [facility] Body temperature 36.06 Yamile 36.06 Yamile [facility] Body height 182.9 cm 182.[address] [facility] Body weight 113.581 kg 113.[address] [facility] Body mass index (BMI) [Ratio] 33.96 kg/m2 33.96 kg/m2 [facility] Oxygen saturation in Arterial blood by Pulse oximetry 99 % 99 % [facility] Systolic blood pressure 138 mm[Hg] 138 mm[Hg] M EDDORIS ([facility]) Diastolic blood pressure 84 mm[Hg] 84 mm[Hg] MEDENT ([facility]) Body height 71 [in_i] 71 [in_i] MEDENT ([facility]) 5'11" Body weight 259.00 [lb_av] 259.00 [lb_av] MEDEN T ([facility]) Body mass index (BMI) [Ratio] 36.1 kg/m2 36.1 k g/m2 MEDENT ([facility]) Heart rate 76 /min 76 /min MEDENT ([facility]) Respiratory rate 20 /min 20 /min MEDENT ( [facility]) Body temperature 98.4 [degF] 98.4 [degF] MEDENT ([facility]) Oxygen saturation in Arterial blood by Pulse oximetry 99 % 99 % MEDENT ([facility]) [place] body weight 172 [lb_av] 172 [lb_av] MEDEN T ([facility]) Body weight 259.0 [lb_av] 259.0 [lb_av] eCW1 ([facility]) Body height 74 [in_i] 74 [in_i] W1 ([facility]) Body mass index (BMI) [Ratio] 33.25 kg/m2 33.25 kg/m2 eCW1 ([facility]) Systolic blood pressure 124 mm[Hg] 124 mm[Hg] e CW1 ([facility]) Diastolic blood pressure 76 mm[Hg] 76 mm[Hg] eCW1 ([facility]) Systolic blood pressure 140 mm[Hg] 140 mm[Hg] M EDENT ([facility]) Diastolic blood pressure 68 mm[Hg] 68 mm[Hg] MEDENT ([facility]) Body height 71 [in_i] 71 [in_i] MEDENT ([facility]) 5'11" Body weight 246.00 [lb_av] 246.00 [lb_av] MEDEN T ([facility]) Body mass index (BMI) [Ratio] 34.3 kg/m2 34.3 k g/m2 MEDENT ([facility]) Heart rate 71 /min 71 /min [facility] ([facility]) Respiratory rate 18 /min 18 /min MEDENT ( [facility]) Body temperature 97.7 [degF] 97.7 [degF] MEDENT ([facility]) Oxygen saturation in Arterial blood by Pulse oximetry 96 % 96 % MEDENT ([facility]) [place] body weight 172 [lb_av] 172 [lb_av] MEDEN T ([facility]) Body weight 251.0 [lb_av] 251.0 [lb_av] eCW1 ([facility]) Body height 74 [in_i] 74 [in_i] eCW1 ([facility]) Body mass index (BMI) [Ratio] 32.22 kg/m2 32.22 kg/m2 eCW1 ([facility]) Systolic blood pressure 108 mm[Hg] 108 mm[Hg] e CW1 ([facility]) Diastolic blood pressure 70 mm[Hg] 70 mm[Hg] W1 ([facility]) Systolic blood pressure 126 mm[Hg] 126 mm[Hg] [facility] Diastolic blood pressure 66 mm[Hg] 66 mm[Hg] [facility] Systolic blood pressure 157 mm[Hg] 157 mm[Hg] [facility] Diastolic blood pressure 89 mm[Hg] 89 mm[Hg] [facility] Heart rate 58 /min 58 /min [facility] Body temperature 36.78 Yamile 36.78 Yamile [facility] Oxygen saturation in Arterial blood by Pulse oximetry 99 % 99 % [facility] Respiratory rate 14 /min 14 /min [facility] Body weight 110.678 kg 110.[address] [facility] Body mass index (BMI) [Ratio] 33.09 kg/m2 33.09 kg/m2 [facility] Systolic blood pressure 158 mm[Hg] 158 mm[Hg] [facility] 142/76 repeat after 5 minutes Diastolic blood pressure 94 mm[Hg] 94 mm[Hg] [facility] 142/76 repeat after 5 minutes Heart rate 75 /min 75 /min [facility] Body temperature 36.28 Yamile 36.28 Yamile [facility] Respiratory rate 20 /min 20 /min [facility] Body weight 111.131 kg 111.[address] [facility] Body mass index (BMI) [Ratio] 33.23 kg/m2 33.23 kg/m2 [facility] Oxygen saturation in Arterial blood by Pulse oximetry 95 % 95 % [facility] Respiratory rate 18 /min 18 /min [facility] ( [facility]) Body temperature 97.9 [degF] 97.9 [degF] [facility] ([facility]) Oxygen saturation in Arterial blood by Pulse oximetry 96 % 96 % [facility] ([facility]) [place] body weight 172 [lb_av] 172 [lb_av] [facility] Systolic blood pressure 128 mm[Hg] 128 mm[Hg[facility] Diastolic blood pressure 78 mm[Hg] 78 mm[Hg] [facility] ([facility]) Body height 71 [in_i] 71 [in_i] [facility] ([facility]) 5'11" Body weight 241.25 [lb_av] 241.25 [lb_av] MEDEN T ([facility]) Body mass index (BMI) [Ratio] 33.6 kg/m2 33.6 k g/m2 [facility] ([facility]) Heart rate 72 /min 72 /min [facility] ([facility]) Patient Treatment Plan of Care Planned Activity Planned Date Details Description Data Source (s) Tamsulosin hydrochloride 0.4 MG Oral Capsule 12/13/2020 12:00:[address] [facility] Losartan Potassium 25 MG Oral Tablet 12/09/2020 12:00:[address] [facility] EPINEPHrine (EPIPEN) 0.3 MG/0.3ML SOAJ 11/01/2020 12:00:[address] [facility] doxycycline hyclate 50 MG Oral Capsule 10/26/2020 12:00:[address] [facility] doxycycline hyclate 50 MG Oral Capsule 10/26/2020 12:00:00 AM EDT eCW1 ([facility]) Ticagrelor 90 MG Oral Tablet 07/19/2020 12:00:[address] [facility] carvedilol 3.125 MG Oral Tablet 07/19/2020 12:00:[address] [facility] atorvastatin 40 MG Oral Tablet 07/19/2020 12:00:[address] [facility] atorvastatin 40 MG Oral Tablet 02/04/2020 12:00:[address] [facility] Ticagrelor 90 MG Oral Tablet 12/03/2019 12:00:[address] [facility] carvedilol 3.125 MG Oral Tablet 12/03/2019 12:00:[address] [facility] Aspirin 81 MG Delayed Release Oral Tablet 06/06/2019 12:00:00 AM ES T [facility] 24 HR Testosterone 0.0833 MG/HR Transdermal Patch [facility]
[2021-01-26 16:03] LABS: INR 0.98; PROTHROMBIN TIME 13.4 SECONDS (12.7-14.5)
[2021-01-26 16:04] LABS: PARTIAL THROMBOPLASTIN TIME 28.4 SECONDS (25.9-37.0)
[2021-01-26 16:26] LABS: ALBUMIN 3.5 GM/DL (3.2-5.2); ALT/SGPT 50 U/L (12-78); BILIRUBIN,TOTAL 0.6 MG/DL (0.2-1.0); BLOOD UREA NITROGEN 16 MG/DL (7-18); CALCIUM LEVEL 9.2 MG/DL (8.8-10.2); CARBON DIOXIDE LEVEL 31 MEQ/L (21-32); CHLORIDE LEVEL 105 MEQ/L (98-107); CK-MB VALUE MASS 3.7 NG/ML (<3.6); CPK CREATINE PHOSPHOKINASE 156 U/L (39-308); CREATININE FOR GFR 0.93 MG/DL (0.70-1.30); GLOMERULAR FILTRATION RATE > 60.0 (>42); GLUCOSE, FASTING 89 MG/DL (70-100); MB/CK RELATIVE INDEX 2.37 (< OR =4); POTASSIUM SERUM 4.5 MEQ/L (3.5-5.1); SODIUM LEVEL 139 MEQ/L (136-145); TROPONIN I < 0.02 NG/ML (< 0.10)
[2021-01-26 16:47] LABS: RSV AMPLIFICATION NEGATIVE (NEGATIVE)
[2021-01-26] MEDS ORDERED: MOM 30ML SUSPENSION UDC PO PRN (18:00)
[2021-01-26] MEDS ORDERED: MAALOX 30 ML SUSP *UDC PO PRN (18:00)
[2021-01-26] MEDS ORDERED: ACETAMINOPHEN TAB 650MG DOSE (2X325MG) PO PRN (18:00)
[2021-01-26] MEDS ORDERED: HEPARIN DRIP 25,000 UNITS in IV 1 EA IV SCH (18:05)
[2021-01-26] MEDS ORDERED: HEPARIN SOD (PORCINE) 5000UNITS/ML 1ML VIAL/SYRINGE IV PRN (18:05)
--- NOTE | 2021-01-26 18:18 | HPEPDOC ---
[facility] Medical History & Physical Date of Admission Jan 26, 2021 Date of Service: Jan 26, 2021 History and Physical CHIEF COMPLAINT: exertional shortness of breath HISTORY OF PRESENT ILLNESS: 70 yo M with a PMHx of CAD s/p 2 stents, HLD, sarcoidisis, presented to ER c/o a week hx of exertional dyspnea. He first felt SOB when walking on a regular hike. He denies chest pain, palpitations, leg swelling, cough/hemoptysis. He was seen in his PCP office. Serum D dimer elevated to 1000. CTA chest was ordered, but not diagnostic as there was poor opacification pulmonary arteries. Patient is being admitted to hospitalist [facility] for workup of exertional dyspnea. PAST MEDICAL HISTORY: CAD s/p 2 stents HLD sarcoidosis PAST SURGICAL HISTORY: R knee replacement Hand surgery SOCIAL HISTORY: Non smoker, non drinker, no illicit drug use FAMILY HISTORY: reviewed with patient, denies relevant family history ALLERGIES: Please see below. REVIEW OF SYSTEMS: 10 point ROS conducted, relevant findings are noted in HPI. HOME MEDICATIONS: Please see below. PHYSICAL EXAMINATION: VITAL SIGNS: please see below General: NAD, comfortable HEENT: PERRLA, EOMI, sclerae clear Neck: supple, normal ROM, no JVD Respiratory: lungs CTAB, no wheeze, no rales, no crackles CVS: RRR, normal S1, S2, no murmurs Abdo: soft, no masses, no hepatosplenomegaly, BS+, no rebound tenderness Extremities: no edema, pulses 2+ MSK: no joint deformities, normal ROM Neuro: no focal neuro deficits, moving all 4 extremities, CN2-12 intact. Strength 5/5 in all 4 extremities. No nystagmus. Psych: calm, cooperative, AAO x 3 LABORATORY DATA: See below. IMAGING: CTA chest (01/26/21): IMPRESSION: 1. Nondiagnostic for pulmonary embolus. Normal thoracic aorta and heart/pericardium. 2. Evidence for prior granulomatous disease. No acute mediastinal or pleuroparenchymal process appreciated. MICROBIOLOGY: Please see below. ASSESSMENT: 70 yo M with a PMHx of CAD s/p 2 stents, HLD, sarcoidisis, presented to ER c/o a week hx of exertional dyspnea. He first felt SOB when walking on a regular hike. He denies chest pain, palpitations, leg swelling, cough/hemoptysis. He was seen in his PCP office. Serum D dimer elevated to 1000. CTA chest was ordered, but not diagnostic as there was poor opacification pulmonary arteries. Patient is being admitted to hospitalist service for workup of exertional dyspnea. . PLAN: Exertional dyspnea - 1 week hx, improving - D dimer elevated, 1000 - CTA non diagnostic for PE - will d/w radiology, consider repeat of study - D/w Dr. Peraza. 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 CAD - s/p 2 stents 2 years ago - takes brilinta - will obtain records - hold brilinta for now while on heparin ggt. DVT ppx: heparin ggt. Dispo: admitted for observation. Vital Signs Vital Signs Date Time Temp Pulse Resp B/P (MAP) Pulse Ox O2 Delivery O2 Flow Rate FiO2 01/26/21 14:15 97.7 64 16 131/72 (91) 97 Room Air Laboratory Data Labs 24H Laboratory Tests 2 01/26/21 15:26: Prothrombin Time 13.4, Prothromb Time International Ratio 0.98, Activated Partial Thromboplast Time 28.4, Anion Gap 3L, Glomerular Filtration Rate > 60.0, Calcium Level 9.2, Total Bilirubin 0.6, Aspartate Amino Transf (AST/SGOT) 23, Alanine Aminotransferase (ALT/SGPT) 50, Alkaline Phosphatase 72, Total Creatine Kinase 156, Creatine Kinase MB 3.7H, Creatine Kinase MB Relative Index 2.37, Troponin I < 0.02, Total Protein 7.0, Albumin 3.5, Albumin/Globulin Ratio 1.0 01/26/21 15:34: Coronavirus (COVID-19)(PCR) NEGATIVE, Influenza Type A (RT-PCR) NEGATIVE, Influenza Type B (RT-PCR) NEGATIVE, Respiratory Syncytial Virus (PCR) NEGATIVE CBC/BMP Laboratory Tests 01/26/21 15:26 Home Medications Scheduled Atorvastatin Calcium (Atorvastatin Calcium) 40 Mg Tablet, 40 MG PO QHS Carvedilol (Carvedilol) 3.125 Mg Tablet, 3.125 MG PO BID Cholecalciferol (Vitamin D3) (Vitamin D-400) 10 Mcg Tablet, 10 MCG PO DAILY Fluorometholone Acetate (Flarex) 0.1% 5ML Drops.susp, 1 DROP OD DAILY Losartan Potassium (Losartan Potassium) 25 Mg Tablet, 25 MG PO QHS Magnesium Oxide (Magnesium) 400 Mg Capsule, 400 MG PO DAILY Mometasone Furoate Monohydrate (Nasonex) 17 Gm [place].pump, 1 SPRAY NARES DAILY Salmeterol/Fluticasone (Advair 250-50 Diskus) 1 Each Blst.w.dev, 1 PUFF INH DAILY Tamsulosin HCl (Flomax) 0.4 Mg Capsule, 0.4 MG PO QHS Testosterone Cypionate (Testosterone Cypionate) 200 Mg/1 Ml Vial, 25 MG IM 1XWK MONDAYS Ticagrelor Base (Brilinta) 90 Mg Tablet, 90 MG PO BID Scheduled PRN Albuterol Sulfate (Proair Hfa) 8.5 Gm Hfa.aer.ad, 2 PUFF INH Q4H PRN for SHORTNESS OF BREATH Diazepam (Diazepam) 10 Mg Tablet, 10 MG PO TID PRN for VERTIGO/DIZZINESS Sildenafil Citrate (Sildenafil Citrate) 100 Mg Tablet, 100 MG PO ASDIRECTED PRN for ERECTILE DYSFUNCTION Tramadol HCl (Tramadol HCl) 50 Mg Tablet, 50 MG PO BID PRN for PAIN LEVEL 5-10 Allergies Coded Allergies: No Known Allergies (Unverified , 06/04/19) A-FIB/CHADSVASC A-FIB History Current/History of A-Fib/PAF?: No ANALY VALDEZ MD Jan 26, 2021 18:18
--- OUTSIDE RECORDS SUMMARY | 2021-01-26 18:27 | CCD ---
Author Author [facility] Organization [facility] Address Unknown Phone Unavailable Care Team Providers Care Marketing Project Specialist Name Role Phone Jessica Sanchez MD Unavailable Unavailable Jessica Sanchez [...] Unavailable Unavailable Jessica Sanchez MD Unavailable Unavailable Sanchez, Redding MD Unavailable Unavailable Sanchez, Redding MD Unavailable Unavailable Sanchez, Redding MD Unavailable Unavailable Sanchez, Redding MD Unavailable Unavailable Sanchez, Redding MD Unavailable Unavailable Sanchez, Redding MD Unavailable Unavailable Sanchez, Redding MD Unavailable Unavailable Sanchez, Redding MD Unavailable Unavailable Sanchez, Redding MD Unavailable Unavailable Sanchez, Redding MD Unavailable Unavailable Sanchez, Redding MD Unavailable Unavailable Sanchez, Redding MD Unavailable Unavailable Sanchez, Redding MD Unavailable Unavailable Sanchez, Redding MD Unavailable Unavailable Sanchez, Redding MD Unavailable Unavailable Sanchez, Redding MD Unavailable Unavailable Sanchez, Redding MD Unavailable Unavailable Sanchez, Redding MD Unavailable Unavailable Sanchez, Redding MD Unavailable Unavailable Sanchez, Redding MD Unavailable Unavailable Sanchez, Redding MD Unavailable Unavailable Sanchez, Redding MD Unavailable Unavailable ANSELMO STILLNKEYONNA MD Unavailable Unavailable ANSELMO STILLNKEYONNA MD Unavailable Unavailable ANSELMO STILLNKEYONNA MD Unavailable Unavailable ANSELMO STILLNKEYONNA MD Unavailable Unavailable UKRAINIANANSELMONKEYONNA MD Unavailable Unavailable UKRAINIANANSELMONKEYONNA MD Unavailable Unavailable ANSELMO STILLNKEYONNA MD Unavailable Unavailable UKRAINIANANSELMONKEYONNA MD Unavailable Unavailable UKRAINIANANSELMONKEYONNA MD Unavailable Unavailable UKRAINIANANSELMONKEYONNA MD Unavailable Unavailable UKRAINIANANSELMONJIN MD Unavailable Unavailable UKRAINIAN XIANJIN MD Unavailable Unavailable UKRAINIAN, XIANJIN MD Unavailable Unavailable UKRAINIAN XIANJIN MD Unavailable Unavailable UKRAINIAN XIANJIN MD Unavailable Unavailable UKRAINIAN XIANJIN MD Unavailable Unavailable UKRAINIANANSELMONKEYONNA MD Unavailable Unavailable UKRAINIANANSELMONKEYONNA MD Unavailable Unavailable UKRAINIANANSELMONKEYONNA MD Unavailable Unavailable UKRAINIANANSELMONJIN MD Unavailable Unavailable UKRAINIAN XIANJIN MD Unavailable Unavailable UKRAINIAN XIANJIN MD Unavailable Unavailable UKRAINIAN XIANJIN MD Unavailable Unavailable UKRAINIAN XIANJIN MD Unavailable Unavailable UKRAINIANANSELMONKEYONNA MD Unavailable Unavailable UKRAINIAN XIANKEYONNA MD Unavailable Unavailable WILFREDO-SAPPHIRE, TREASURE DO Unavailable [...] Unavailable Unavailable WILFREDO-SAPPHIRE, TREASURE DO Unavailable Unavailable WILFREDO-SAPPHRIE, TREASURE DO Unavailable Unavailable WILFREDO-SAPPHIRE, TREASURE DO Unavailable Unavailable WILFREDO-SAPPHIRE, TREASURE DO Unavailable Unavailable Francia LUONG Unavailable Unavailable Francia LUONG MD Unavailable Unavailable Francia Hope MD Subshaneir Unavailable + Francia Hope MD Unavailable + Francia Hope MD Subshaneir Unavailable + Francia Hope MD Subhanir Unavailable + Francia Hope MD Subhanir Unavailable + Re-disclosure Warning The records that you are [...] is protected by Article 27-F of the [facility] Public Health law. If you continue you may have access to information: Regarding HIV / AIDS; Provided by facilities licensed or operated by the [facility] Office of Mental Health; or Provided by the [facility] Office for People With Developmental Disabilities. If such information is present, then the following [facility] mandated warning applies: This information has [...] Problem [facility] ([facility]) Unknown Male Problem [facility] ([facility]) Unknown Female Encounters Encounter Providers Location Date Indications Data Source(s ) Outpatient Attender: TREASURE CHIN DO [facility] 01/25/2021 03:20:00 PM EDT [facility] ([facility]) Outpatient Attender: Jessica Sanchez MD [facility] 12/23/2020 12:00:0 0 AM EDT [facility] Outpatient Attender: TREASURE CHIN DO [facility] 11/11/2020 03:40:00 PM EDT [facility] ([facility]) Outpatient [address] [facility] [address] 10/26/2020 12:00:00 AM EDT eCW1 ([facility]) [facility] 08/19/19 10:16:44 AM EDT - 08/18/2020 11:10:09 AM EDT [facility] Outpatient Attender: TREASURE CHIN [facility] 06/23/2020 08:20:00 AM EST [facility] ([facility]) Outpatient [address] [facility] [address] 04/26/2020 12:00:00 AM EST eCW1 ([facility]) [facility] 03/15/2020 02:37:58 PM EST [facility] Outpatient Attender: TREASURE CHIN [facility] 03/10/2020 08:00:00 AM EST [facility] ([facility]) [facility]: [facility] 03/09/2020 12:00:0 0 AM EST [facility] Outpatient Attender: FRANCESCA STILL MDAtten joni: SIRISHA LUONGAttender: SIRISHA LUONG MDAttender: Carol Hope MDAdmitter: SIRISHA LUONG MD ES1-[id number] 02/20/2020 11:32:21 PM EST - 02/21/2020 03:20:00 PM EST [facility] Patient discharged. Outpatient Attender: Jessica Sanchez MD [facility] 02/20/20 12:00:00 AM EST - 02/20/2020 01:48:37 PM EST [facility] Outpatient Attender: TREASURE CHIN [facility] 11/28/2019 10:20:00 AM EDT [facility] ([facility]) Immunizations Vaccine Date Status Description Data Source(s) COVID-19 VACC, MRNA(SustainX)/PF 01/12/2021 12:00:00 AM EDT completed [facility] COVID-19 VACCINE Pfizer 01/12/2021 12:00:00 AM EDT completed [facility] Vaccine Series Complete: YESThis Data wa s Submitted to [facility] Via [employer]. COVID-19 VACCINE [facility] 06/29/2020 12:00:00 AM EDT completed [facility] Vaccine Series Complete: YESThis Data wa s Submitted to [facility] Via [employer]. COVID-19 VACCINE [facility] 06/08/2020 12:00:00 AM EST completed [facility] Vaccine Series Complete: NOThis Data was Submitted to [facility] Via [employer]. Medications Medication Brand Name Start Date Product [...] 12/23/2020 12:00:00 AM EDT ORAL active [facility] 25 mg 12/15/2020 12:00:00 AM EDT tablet 90 TAKE ONE TABLET BY MOUTH NIGHTLY TAKE ONE TABLET BY MOUTH NIGHTLY SOLD: 12/20/2020 [facility] Tamsulosin hydrochloride 0.4 MG Oral Capsule tamsulosi n (FLOMAX) 0.4 MG CAPS tamsulosin (FLOMAX) 0.4 MG CAPS 12/13/2020 12:00:00 AM EDT 0.4 mg O ral active Take 0.4 mg by mouth daily [facility] Losartan Potassium 25 MG Oral Tablet losartan (COZAAR) 25 MG tablet losartan (COZAAR) 25 MG tablet 12/09/2020 12:00:00 AM EDT 25 mg Oral active Take 1 tablet (25 mg total) by mouth nightly [facility] 0.3 ML Epinephrine 1 MG/ML Auto-Injector [Epipen] Epipen 2-P ak 11/01/2020 12:00:00 AM EDT active M [facility]ENT ([facility]) 0.3 mg/0.3 mL 11/01/2020 12:00:00 AM EDT auto-injector 2 INJECT ONCE IN ANTEROLATERAL THIGH, MAY REPEAT AFTER 5-15 MINUTES IF SYMPTOMS PERSIST INJECT ONCE IN ANTEROLATERAL THIGH, MAY REPEAT AFTER 5-15 MINUTES IF SYMPTOMS PERSIST SOLD: 11/03/2020 Brent Gao EPINEPHrine (EPIPEN) 0.3 MG/0.3ML [facility] [id number] 11/01/2020 12:00:00 A M EDT active INJECT ONCE IN ANTEROLATERAL THIGH MAY REPEAT AFTER 5 15 MINUTES IF SYMPTOMS PERSIST [facility] doxycycline hyclate 50 MG Oral Capsule doxycycline ( BRAMYCIN) 50 MG capsule doxycycline (VIBRAMYCIN) 50 MG capsule 10/26/2020 12:00:00 AM EDT 5 0 mg Oral active Take 50 mg by mouth daily [facility] doxycycline hyclate 50 MG Oral [...] {capsule} active Doxycycline Hyclate 50 MG eCW1 ([facility]) doxycycline hyclate 50 MG Oral Capsule DOXYCYCLINE [...] tablet (40 mg total) by mouth daily [facility] Ticagrelor 90 MG Oral Tablet ticagrelor (BRILINTA) 90 MG TABS ticagrelor (BRILINTA) 90 MG TABS 07/19/2020 12:00:00 AM EDT 90 mg Oral active Take 1 tablet (90 mg total) by mouth 2 (two) times a day [facility] carvedilol 3.125 MG Oral Tablet carvedilol (COREG) 3.1 25 MG tablet carvedilol (COREG) 3.125 MG tablet 07/19/2020 12:00:00 AM EDT 3.125 mg Oral active Take 1 tablet (3.125 mg total) by mouth 2 (two) times a day with meals [facility] atorvastatin 40 MG Oral Tablet [...] completed [facility] ([facility]) technetium sestamibi (CARDIOLITE) injection 11.1 millicurie 02/21/2020 02:00:00 PM EST 11.1 mCi Intravenous completed 11.1 millicurie, Intravenous, Once, 02/21/20 at 1400, For 1 dose [facility] Medication administered onsite technetium sestamibi (CARDIOLITE) injection 34 millicurie 02/21/2020 02:00:00 PM EST 34 mCi Intravenous completed 34 millicurie, Intravenous, Once, 02/21/20 at 1400, For 1 dose [facility] Medication administered onsite Fluorometholone 1 MG/ML Ophthalmic Suspe nsion fluorometholone (FML) 0.1 % ophthalmic suspension 1 drop fluorometholone (FML) 0.1 % ophthalmic s uspension 1 drop 02/21/2020 09:00:00 AM EST 1 [drp] active 1 drop, Right Eye, 4 times daily, First dose on 02/21/20 at 0900 [facility] Medication administered onsite atorvastatin 40 MG Oral Tablet atorvastatin (LIPITOR) tablet 40 mg atorvastatin (LIPITOR) tablet 40 mg 02/21/2020 09:00:00 AM EST 40 mg Oral active 40 mg, Oral, Daily, First dose on 02/21/20 at 0900 [facility] Medication administered onsite Aspirin 81 MG Delayed Release Oral Tablet aspirin EC t ablet 81 mg aspirin EC tablet 81 mg 02/21/2020 09:00:00 AM EST 81 mg Oral activ e 81 mg, Oral, Daily, First dose on 02/21/20 at 0900 [facility] Medication administered onsite 60 ACTUAT formoterol fumarate 0.005 MG/A CTUAT / mometasone furoate 0.2 MG/ACTUAT Metered Dose Inhaler mometasone-formoterol (DULERA) 200-5 MCG/ACT inhaler 2 puff mometasone-formoterol (DULERA) 200-5 MCG/ACT inhaler 2 puff 02/21/2020 08:00:00 AM EST 2 {puff} Inhalation active 2 puff, Inhalation, 2 times daily, First dose on 02/21/20 at 0800 [facility] Medication administered onsite Ticagrelor 90 MG Oral Tablet ticagrelor (BRILINTA) tab let 90 mg ticagrelor (BRILINTA) tablet 90 mg 02/21/2020 01:45:00 AM EST 90 mg Oral active 90 mg, Oral, 2 times daily, First dose on 02/21/20 at 0145 [facility] Medication administered onsite regadenoson (LEXISCAN) solution 0.4 mg [id number] 02/21/2020 01:4 0:00 AM EST 0.4 mg Intravenous completed 0.4 mg, Intravenous, Once, 02/21/20 at 0140, For 1 dose, [employer]
No Caffeine, Theophylline, or Dipyridamole (Aggrenox) for 12 hours prior to dose. If patient has had any of these, contact MD immediately
[facility] Medication administered onsite Albuterol 0.83 MG/ML Inhalant Solution a lbuterol (PROVENTIL) nebulizer solution 2.5 mg albuterol (PROVENTIL) nebulizer solution 2.5 mg 2019 01:25:19 AM EST 2.5 mg active 2.5 mg, Nebulization, RT every 4 hours as needed, wheezing, shortness of breath, Starting 02/21/20 at 0125 [facility] Medication administered onsite Aspirin 81 MG Chewable Tablet aspirin chewable tablet 162 mg aspirin chewable tablet 162 mg 02/21/2020 12:05:00 AM EST 162 mg Oral comp leted 162 mg, Oral, Once, 02/21/20 at 0005, For 1 dose [facility] Medication administered onsite Nitroglycerin 0.02 MG/MG Topical Ointmen t nitroglycerin (NITROSTAT) 2 % ointment 0.5 inch nitroglycerin (NITROSTAT) 2 % ointment 0.5 inch 2019 12:05:00 AM EST 0.5 g Topical completed 0.5 in ch (0.5 g), Topical, Once, 02/21/20 at 0005, For 1 dose
1 inch = 1 gram
[facility] Medication administered onsite 10 ML [...] or 0.04 mg/kg. Max of 6 doses
[facility] Medication administered onsite Tamsulosin hydrochloride [...] tablet (40 mg total) by mouth daily [facility] 1 % 12/16/2019 12:00:00 AM [...] 2 (two) times a day with meals [facility] Ticagrelor 90 MG Oral Tablet ticagrelor (BRILINTA) 90 MG TABS ticagrelor (BRILINTA) 90 MG TABS 12/03/2019 12:00:00 AM EDT 90 mg Oral active Take 1 tablet (90 mg total) by mouth 2 (two) times a day [facility] Cephalexin 500 MG Oral Capsule CEPHALEXIN 11/27/2019 12:00:00 AM EDT capsule 21 TAKE ONE CAPSULE BY MOUTH THREE TIMES A DAY UNTIL GONE TAKE ONE CAPSULE BY MOUTH THREE TIMES A DAY UNTIL GONE SOLD: 11/27/2019 [facility] Cephalexin 500 MG Oral Capsule Cephalexin 11/27/2019 12:00:00 AM EDT ORAL completed [facility] ([facility]) Aspirin 81 MG Delayed Release Oral Tablet aspirin 81 M G EC tablet aspirin 81 MG EC tablet 06/06/2019 12:00:00 AM EST 81 mg Oral aborted Take 1 tablet (81 mg total) by mouth daily [facility] 24 HR Testosterone 0.0833 MG/HR Transdermal Patch Test osterone 2 MG/24HR PT24 Testosterone 2 MG/24HR PT24 2.[address] 2.5 mg on the skin [facility] Insurance Providers Payer name Policy type / Coverage type Policy ID Covered democrat ID Covered democrat's relationship to garces Policy Garces Plan Information [facility] [id number] [id number] [facility] [id number] [place]2 [id number] [place] 306/806 [id number] [place]2 [id number] [employer] [place] [id number] SP [id number] [place] 306/806 [id number] SP [id number] [place] 306/806 [id number] SP [id number] [employer] INSUR[employer] [place] [id number] SP [id number] [place] PPO 302/307 [id number] [place]2 [id number] [employer] INS[employer] [place] [id number] SP [id number] MEDICARE [id number] xxxxxxxxxxx [id number] MEDICARE [id number] [facility] [id number] EXCELLUS H [id number] Self [id number] [facility] U[facility]W [place] [id number] Family Dependent HVL [id number] [employer] U/W Commercial [id number] Family Dependent HVL [id number] [facility] U[facility] Commercial 411 Family Dependen t [facility] U/W [place] [id number] Family Dependent HVL [id number] [employer] U/W Commercial [id number] Family Dependent HVL [id number] [place] [id number] [facility] [id number] La [employer] U/W Commercial [id number] Family Dependent HVL [id number] La [employer] Commercial [id number] Family Dependent HVL [id number] La [employer] U/[employer] Commercial [id number] Family Dependent HVL [id number] [facility] U/W Commercial [id number] Family Dependent HVL [id number] La [employer] U/[employer] Commercial [id number] Family Dependent HVL [id number] La Gonzalezield U/W Commercial [id number] Family Dependent HVL [id number] La Gonzalezield U/W Commercial [id number] Family Dependent HVL [id number] La Blueield U/W Commercial [id number] Family Dependent HVL [id number] La [employer] Commercial [id number] Family Dependent HVL [id number] La Gonzalezshield U/W Commercial [id number] Family Dependent HVL [id number] [facility] U/W Commercial [id number] Family Dependent HVL [id number] [facility] U/W Commercial [id number] Family Dependent HVL [id number] [facility] U/W Commercial [id number] Family Dependent HVL [id number] [facility] U/W Commercial [id number] Family Dependent HVL [id number] [employer] CO [id number] SP [id number] CIGNA [id number] xxxxxxxxxxx [id number] CIGNA [id number] Charlette [id number] MVP HEALTH CARE [id number] SP [id number] [place] BCBS P UNAVAILABLE P UNAV AILABLE MEDICARE [id number] SP [id number] CIGNA HEALTHCARE [id number] WI2 U [id number] [employer] HE[employer]CARE [id number] WI2 U [id number] CIGNA/MVP/CONN GEN/PREFE O [id number] S [id number] C[employer]NA INSURANCE CO [id number] SP [id number] SELF PAY ONLY CIGNA INSURANCE CO O [id number] S [id number] [facility] U/W Commercial [id number] Self VYA [id number] [facility] U/W Commercial [id number] Self VYA [id number] [facility] U/W Commercial [id number] Self VYA [id number] [facility] U/W Commercial [id number] Self VYA [id number] [facility] U/W Commercial [id number] Self VYA [id number] [facility] U/W Commercial [id number] Self VYA [id number] [facility] U/W Commercial [id number] Self VYA [id number] [facility] U/W Commercial [id number] Self VYA [id number] [facility] U/W Commercial [id number] Self VYA [id number] [facility] U/W Commercial [id number] Self VYA [id number] [facility] U/W Commercial [id number] Self VYA [id number] LA [facility] B [id number] P HVL [id number] [facility] U/W Commercial [id number] Self VYA [id number] La Gonzalezosvaldo U/[employer] Commercial [id number] Self VYA [id number] La Gonzalezosvaldo U/[employer] Commercial [id number] Self VYA [id number] La Gonzalezosvaldo U/W Commercial [id number] Self VYA [id number] La Gonzalezosvaldo U/W Commercial [id number] Self VYA [id number] La Gonzalezosvaldo U/W Commercial [id number] Self VYA [id number] La Gonzalezosvaldo U/W Commercial [id number] Self VYA [id number] [facility] U/W Commercial [id number] Self BS [employer] Medigap Part [id number] Self BS [employer] Commercial [id number] Family Dependent [place] BCBS P [id number] P VYA [id number] [facility] [id number] Problems, Conditions, and Diagnoses Code Display Name Description Problem Type Effective Dates Data Source(s) I10 Essential (primary) hypertension Essential (primary) h ypertension Diagnosis 12/23/2020 10:14:13 AM EDT [facility] I25.10 Atherosclerotic heart diseas e of [place] coronary artery without angina pectoris Atherosclerotic heart disease of [place] Diagnosis 12/23/2020 10:14:13 AM EDT [facility] R06.02 Shortness of breath Shortness of breath Diagnosis 0 08/18/2020 10:16:44 AM EDT [facility] D86.9 Sarcoidosis, unspecified Sarcoidosis, unspecified Diag nosis 08/18/2020 10:16:44 AM EDT [facility] R07.2 Precordial pain Precordial pain Diagnosis 02/20/2020 11:3 2:21 PM [facility] I20.8 Other forms of angina pectoris Other forms of angina p ectoris Diagnosis 02/20/2020 11:47:53 AM [facility] J45.40 Moderate persistent asthma Moderate persistent asthma Problem 01/25/2021 12:00:00 AM EDT [facility] ([facility]) I10 Hypertension, benign Hypertension, benign [id number] 12/23/2020 12:00:00 AM EDT [facility] Z12.83 [id number] Screening exam for skin cancer Problem 10/25/2020 12:00:00 AM EDT eCW1 ([facility]) J45.909 Asthma Asthma [id number] 02/21/2020 12:00:00 AM ES T [facility] D86.9 Sarcoidosis Sarcoidosis [id number] 02/21/2020 12:00:00 AM [facility] R07.2 Chest pain, precordial Chest pain, precordial [id number] 02/21/2020 12:00:00 AM [facility] C44.90 Skin cancer Skin cancer [id number] 02/20/2020 12:00:00 AM [facility] Surgeries/Procedures Procedure Description Date Indications Data Source(s) OFFICE OUTPATIENT VISIT 25 MINUTES 01/25/2021 12:00:00 AM EDT [facility] ([facility]) Omt 9-10 Body Regions 11/11/2020 12:00:00 AM EDT [facility] ([facility]) OFFICE OUTPATIENT VISIT 15 MINUTES 11/11/2020 12:00:00 AM EDT [facility] ([facility]) Omt 7-8 Body Regions 06/23/2020 12:00:00 AM EST [facility] ([facility]) OFFICE OUTPATIENT VISIT 15 MINUTES 06/23/2020 12:00:00 AM EST [facility] ([facility]) Omt 7-8 Body Regions 03/10/2020 12:00:00 AM EST [facility] ([facility]) MYOCARDIAL SPECT MULTIPLE STUDIES <td>NM CARDIAC GATED SPEC IMG EFWM</td><td>Routine</td><td>02/21/2020 12:54 PM EST</td><td></td><td> </td> 02/21/2020 05:54:18 PM EST [facility] CV STRS TST XERS&/OR RX CONT ECG PHYS SI&R <td>STRESS TEST, CARDIOVASCULAR</td><td>Routine</td><td>02/21/2020 11:45 AM EST</td><td></td><td></td> 02/21/2020 04:45:55 PM EST [facility] ECHO TTHRC R-T 2D W/WOM-MODE COMPL SPEC&COLR DOP <td>E CHOCARDIOGRAM TRANSTHORACIC</td><td>Routine</td><td>02/21/2020 9:51 AM EST</td><td></td><td> </td> 02/21/2020 02:51:40 PM EST [facility] ECG ROUTINE ECG W/LEAST 12 LDS TRCG ONLY W/O I&R <td>E CG 12- LEAD</td><td>Routine</td><td>02/21/2020 8:13 AM EST</td><td></td><td></td> 02/21/2020 01:13:45 PM EST [facility] TROPONIN QUANTITATIVE <td>TROPONIN I</td><td>STAT< /td><td>02/21/2020 7:21 AM EST</td><td></td><td> </td> 02/21/2020 12:21:00 PM EST [facility] CT THORAX W/O CONTRAST MATERIAL <td>CT CHEST WO CONTRAST</td><td>Routine</td><td>02/21/2020 2:31 AM EST</td><td></td><td> </td> 02/21/2020 07:31:25 AM EST [facility] CV STRS TST XERS&/OR RX CONT ECG PHYS SI&R <td>STRESS TEST, CARDIOVASCULAR</td><td>Routine</td><td>02/21/2020 1:24 AM EST</td><td></td><td></td> 02/21/2020 06:24:57 AM EST [facility] XR CHEST PA AND LATERAL <td>XR CHEST PA AND LATERAL</td><td>STAT</td><td>02/20/2020 4:49 PM EST</td><td></td><td> </td> 02/20/2020 09:49:26 PM EST [facility] TROPONIN QUANTITATIVE <td>POCT TROPONIN</td><td>Ro utine</td><td>02/20/2020 2:04 PM EST</td><td></td><td> </td> 02/20/2020 07:04:00 PM EST [facility] ECG ROUTINE ECG W/LEAST 12 LDS TRCG ONLY W/O I&R <td>E CG 12- LEAD</td><td>STAT</td><td>02/20/2020 1:43 PM EST</td><td></td><td></td> 02/20/2020 06:43:44 PM EST [facility] NT PRO BNP <td>NT PRO BNP</td><td>STAT< /td><td>02/20/2020 1:43 PM EST</td><td></td><td> </td> 02/20/2020 06:43:00 PM EST [facility] THROMBOPLASTIN TIME PARTIAL PLASMA/WHOLE BLOOD <td>APTT</td><td>STAT</td><td>02/20/2020 1:43 PM EST</td><td></td><td> </td> 02/20/2020 06:43:00 PM EST [facility] PROTHROMBIN TIME <td>PROTIME-INR</td><td>STAT </td><td>02/20/2020 1:43 PM EST</td><td></td><td> </td> 02/20/2020 06:43:00 PM EST [facility] BLOOD COUNT COMPLETE AUTO&AUTO DIFRNTL WBC COUNT <td>C BC AND DIFFERENTIAL</td><td>STAT</td><td>02/20/2020 1:43 PM EST</td><td></td><td> </td> 02/20/2020 06:43:00 PM EST [facility] COMPREHENSIVE METABOLIC PANEL <td>COMPREHENSIVE METABO LIC PANEL</td><td>STAT</td><td>02/20/2020 1:43 PM EST</td><td></td><td> </td> 02/20/2020 06:43:00 PM EST [facility] ECG ROUTINE ECG W/LEAST 12 LDS W/I&R <td>POCT AMB EKG</td><td>Routine</td><td>02/20/2020 1:10 PM EST</td><td> Angina at rest</td><td> </td> 02/20/2020 06:10:00 PM EST Angina at rest [facility] Angina at rest Omt 7-8 [facility] 11/28/2019 12:00:00 AM EDT [facility] ([facility]) Results ID Date Data Source [id number] 03/15/2020 02:37:58 PM EST [facility] NT INFORMATIONPatient MRN Name Date of Age Gend*PT [id number] Rashid Machado 1950 70 years M ---PT Location Admission Date/Time Visit ID Attending Provider --- --- --- --- EPI ID CSN Admitting Provider [id number] ---Addended by: JESSICA SANCHEZ on: 03/15/2020 02:37 PM Modules accepted: Orders Name Value Range Interpretation Code Description Data Pascale rce(s) Supporting Document(s) ID Date Data Source [id number] 02/21/2020 05:36:37 PM EST [facility] NT INFORMATIONPatient MRN Name Date of Age Gend*PT [id number] Rashid Machado 1950 70 years M OBSPT Location Admission Date/Time Visit ID Attending [id number] 02/20/20 2332 --- --- EPI ID CSN Admitting Provider [id number] Sirisha Luong MD([id number]) Attestation signed by Francesca Still MD at 02/21/2020 5:36 PMI saw and evaluated the patient and reviewed PA's note. I agree with thehistory, physical and medical decision making with the following additions,exceptions, and/or observations:noneSignature: Francesca Still MDDate: February 21, 2020Time: 5:36 PM -- [facility] DISCHARGE SUMMARYPatient Name: Rashid Machado of : 1950 Age 70 yearsPrimary Physician: TREASURE LEARY DO PCP [id number] Date: 02/20/2020 Discharge Date: 02/21/2020 02/21/2020[facility] will be discharged [facility] Diagnoses:Principal Problem: Chest pain to rule out [...] mouth 2 (two)times a day, Starting Sun12/03/2019, H-Exvucxjttwrrslhipqvf-gmrrnekqdm (ADVAIR DISKUS) 250-50 MCG/DOSE DISKUS Inhale 1 [...] [facility], [facility] office due to chest pain. He reportsintermittent chest discomfort for a few weeks, with an episode this week thatwas more sustained, approximately 20 minutes, mid- sternal, burning, similar tohis previous IA in May, for which he took nitro [...] stablecondition to follow-up with his PCP and diazo technician outpatient.Discharge Exam:Blood Pressure: BP: 157/89 Pulse: Heart [...] evidence of acute ischemia. Left ventricular ejection jsrkjema26%Consultants:NoneRecent Labs:BMP:Lab ResultsComponent Value Date NA 141 02/20/2020 [...] rce(s) Supporting Document(s) ID Date Data Source [id number] 02/21/2020 01:02:54 PM EST [address] [id number] Name: RASHID SANMDOB: 1950Sex: MOrdering Provider: SIRISHA Cainhojenn Prov: SIRISHA LUONGRefgabriel Provider: Procedure Performed: NM CARDIAC GATED SPEC IMG EFWMExam Date: 02/21/2020 12:54MRN: [id number] Number: [id number] Class: OutpatientAccount #: [id number] for Exam: Chest tightness or burning, intermediate [...] CAL VALLES On 02/21/2020 1:02 PMWorkstation ID: [id number] - [id number] Name Value Range Interpretation Code Description Data Pascale rce(s) Supporting Document(s) ID Date Data Source [id number] 02/21/2020 10:02:05 AM EST [facility] Name Value Range Interpretation Code Description Data Pascale rce(s) Supporting Document(s) EKG [facility] ZAOQYi7wTmYZHsTgt4VhOcMbGWJdUL7epdu1Z7Q2zAEpI5WdgAUaq1zwN8HjC1ErOPRbAUSOPE3AxGFb jb2 [file] 2w6bkFtp/Hk/4R58dr5cF3jm2lEMlDgr7VC+n+uuZRkVBnK9p+bonding and composite fabricator+0beNFJuTeZMHKbL5vnBk/Y9d5M8 [file] fjdHNyu/j8CSrmDrLabxQuHSIYQ0Ci1o9XgNx6aX37hVzXtUGZfy5mwh/M8BtY5P7o8NUh0dAf87/Génesis [file] HCFHycE/U/Q6WigSeHwCvWLUprcG8E/aMwWS0LCubwvWpYiERfaNRp4GiMFk/kDIQgnEhJbg+cTg+corporate travel expert [file] y3L27kQ19r+161xT920hqj4w7d62b+75626Xp4E6p5 2tc234y/O/05+4md/oyRn02g5/TnbHM7/bko+5c388mv6IhR5Km8+4bBKopzeJ3YQeek0ESj4i1sJan/ 6/kMcF6IaaqIj9p4qN/BM86i1wvsdO3TdqZ/cZ+O+6rqVi9XbZ85KOjII67b+8U52sCm+t4y9Ke+VuUz Xiqz+6tfqT/5pbGTw2Ae7Wz6U/qN85/67gJ4op+f+m ej6PTaL0HsvPylCOnY/tQ35zE/9c1+7qe+twy9QX/qW6l+T73aUwnP18/11iafx951Wf6Cf7rCkaT+ng ca3LS8cC1hQ+gN7PS8C52b167vokn51pmp1dKox7qR0buH/Y5b1218cjJ2+d9bipbBy6992ZO/jyq/+n HMudcY+877O7mYVGEdpOqfg6Nd+m5L/Lmkx7i9o6xc T+bYhmY1E458rU/Ik0eKrV2F/QTuJ/t2bwyV1fqar5rJE7/zxg8ewhqR/Noz9ae+t/p259kOXh/i7Af5 yga9QX/cb83d3DfAz/psBan+dDpXOH81M6X9/IRstr1ca75O8q4fE2nCj4DDcSiC0EWV3+lfNJtf5NQ6 tn/CLY00E7oaXUx/uq41nv9vSoscR6zS/YL+jN+Zx5 5ny6uMR/T+vO0ty8aL+/zlJ71f6OS8l93at2iFv/bZ4zrI63nq6+MrT+km3Ja6Bi+g7/oN5mZUArff4M fIAoJ0fd+oeE3lzr8eU+gVeoV+fO+7n6fn905B/qptDWMh2CyxG9jSRJ9ViyD/fYyiOhhLBja1e521xj SI1YV8Vu/f+/0s5feg1Vgukn8Yfkf/kUojsO9ugo+v D831VpwhsE1OC+5yE2118yw2DI4wA0fNegw1y1qU8icXsndi4Qs3Y5hF6yMf4HL5CmmzuhQ3DA7Wvgsc QI/xuzF+Y6reohpz+yrLqC/sK91tT+iob4J6tH4Op5Vp5Xp5GI+U11a8QW0NjS+Jzpmuq7Yx8rzlT66c 9Hi+zI1GHvPFpWRls8W+hfo11fnhk0T+jtvvsRDj2D ftq+zzaV/dMvSYrxzzVWC+dg6j9TIabdh/x3wVmK/UsfysyTjfDHT6tMiS+JrsFmJij1s3/aQ0VQk78I O/j+61V1OZa6OD1CL9dT2wV4Ef+o3Xo8R1otpCZ/QG/YJ+Qb+hP/H71jt4YCa4ENhq65+I/D5zh9J0/V e9DI2l21qx8AO+q/PtOdJ/dcvQD+cR4QA06/3rec7+ /y3qcwy9tc8MwtAo41Jit40m1ogSII+tT//HRMIu7Xb9aF+llpc8Xziv/hi6ReCW/9UtQ7+hA4Ca1Yd0 qK+nhod6yz3i1/bYV+l/O/axabSDD4Ab0Qh7zR0ZC0Ao5Cp6Xt8RfuV/od/QO/QOfUDf/Octavia/0SD5I81 FhH9BK3Xm8ZC3Uj3t253wFxuUzBh07lsbliz04I/nu fVEj06xMt89A6g/H4DM1O0Hrucf8vdA4oGtSZj1Z/oB/QT+gm9QW/QL+dP2He8yHzcLn5VvFU04M50gq G+C/NSTvyToc31Wb4vGlP+Ijjzaevgv392u0K5Gc1v3m0lY15S783mRy/3kujR9yxx2vsd/z3aH6B8xO /HzzVYsh3F1uV+8cvolEcIveptC7/8zenPI/WnP98y 7MG9Dc2lx+Z2Jl549tf+zfkGQ4s7rl4kP+/QO/QBfbT+5PmtPtcZ4/UpoRTpvCLQNnQl6Y+cZ/b9H/vq oy74de244RV0nz5xA3yIsc03V1/fvqJqfD9EjXJ0WwoAPe61vdg6/M4HRPu8u2iEJxH/63vLE/qJ81v3 i4Sqw9KyvCa/42Ln+Y9/I/vnsa/8+BDOBoXf+ybr8q vfCUurnewsfjhxvXBJ25u9xcK+TnKO2nwlBRjX1Svq8g4+blNYKAIlVLfG0qa/pF1stc01lL+QE8652x tY1yVdxi8Ib/s/RjXsjU3sBjQhOskHypl4Vc/0f36p3phgZWn5wxzq+ZRPfGFV+zKVsq3cwnQW3z4sLy /7SkeVX/1hep33tHtkEHdagiu1Wn/OeZ4s4/xvfdWq bN+8RlfaAeht32UFjM1nz3ynkZ6D5i3XS61mAhj+pouY6UbaNURk/FlVxIQdV7z+E6O137q3rcX3u9+m 4uo5vgndpqzUVLZ/eD0xk9U13szUk1nSD4bgB/vs9817Jpn94Na1ceao4dt3gwvXbd2r+5nD3Ik3Qr2T 3/eOeC03HL5M4IoC3bIWjGVoB59IYpM79VY5MXOken Ax4s4S07U49VmzY8+0r7L/pH0Vqe/kyDk8YDCInc2zjtPnz7vJanKd1wyzgS/CvgWd6Fn6G/oNvUPvnz 4o9188a478/h6c1t+/0/a6p3Z1MQCIHsCj424I/qssT+jbPzmtv/gx5bySEdQSpgzuf18Sxc5Vlebzh/ hR/u6cJ7M0fxNRhssmrq0sV1qwI+m/sqH6pyXPe5Z0 iE5BJ455l0n33dyp7qP8dVk+NNN/VeUF/UKRAINIAN+09k1nFqlO1/xo7kc+vS35+/V081Qp72Za/3ZD1D+/LMd oMvQK/QnvlDHjj5/+q+eGYLl1HtoB/luwfj4Dhb/koNGm9h9w3Jr2a93n77N1u/HC8I22RA9T4teDl9I 6g58E6PfRw/VLUM/oG//5Ez/VfZP+K8m/OhR970+vf 2xM/5PEM2Mr4HPwd1Uot0pQ/9u2lrYc95iNmT2/vxOI7rIsa5RsbrUN55Fu++f8HAe1wxn+nt/xoTeoD foF/VK4448/9Bs32R00+9Z1t/oQ19L9VsIifSgza+Rs6C/y9D39+9Zzf+VJ/QTeoPeoF/C04zrTL5+UI ea9FcYuYO58l/9deDUng8cQt3H+l3vUDrUYhWq0J/o J/QTeoPeoF/QL+k56Cq6z66h1/VIlvZVlrW/To9gn3v4pH1bxrzV268wyjnc8sdrX0UqsuY7Ev8p2AuF wLRoevo4aEs//5r296+pQ4/ni/VXBv+VlY2o3E1L/FcG/6ORofERExa4wxMoEqohf52gsW6E0iCY/t43 2FcG+5fA4aqF73S3vl9pV/WdbU/ygZxMSub9Di+J+k 7Ud6K+E/WF/0bbt1V6M2K8Oq+g39Dj+U6M3/RfZV9K/7Mygn94M0aOFnxlBhIEuUR/oB/Qoz/bhN6gx/ g1jF/D+CDCW5H5VNwss/v7uS8kd/0wIMpgl3na2+5eHxZ4Zn/QD+sE5BP4My9Mp5Iq4Fa4U/aBiOGs5s ezLqe+t9z63d+Gag2cYxp5Po7In1QE7Cj2D/oJvUFv 0C/oF/Qb+g29Q+/yNsq1Mw/V8ZtZ+q9uuc/jqK+enj16YooqgX+tsk65Rfqw/qu6ruF+FvQL+f61ae6d d+yUT3wqWLseUZ4U1B2SK6NfTD1c/ZMW7Z+2jBSU0NImLG6P3K2QS5LxBD2G2L9XQ6Nn4Dlvf+u7ngd6 gV6gV+gV+pZ4yA6AY7A75N31Zj7TmgG/oXfoHfqAHv WQ7PqDO2V3DeLD8Vl2xmzyB16AF+juwD9tm2P77Ije57ea9ZqzDWRmerR8Osuc5Lm2WA1/fxfWty+sb1 +RHp7FJqvrdwvhb4f7m4WOhizv6PL+Qm/QG/QL+sDa249m2r1sf35u90O31EG0vG9lH3rGlWOy0Ll2XN 7rdv0wmN+w7qBEudltjxg8j20v5DvkvAjSw6JubZ3Y b0NPpjE/WvBfrdn+ujXxfCs+sSw0bolgm7u0sgXs+zEGw28zx5Gdl5qd/M6wk3fo+LwHNd4VgmBd6Tz4 AX2/j5b1+1rhiKJmvK9vQ+gV+uW4iN6IT3H60FOxyN3VAYLpqHFsAr6J9dTMgI88RoP0cy0T6H3o33O9 F+qb9pVm+gEEgzkrr52lcH2X+x0weiJylkY0lz76f3 fC+E3/6bL0zSRl1wyZt26+/V1y2Dwc1egm229uc+ZurqqB1j7u+6k3iuqFhbam16+vfTXGyt+ceEqOtZ 5ogHnNg06gm7292pd4nAlca5vT60z7FvVl6mmMtV525XhIU0bcj1l646w+b84S0LI56dTAGTasm7XeAb VIjeuJD1r8oXOIupeAlMgwK/sqYx/l0Dz5eSBmt9jx MxtUM71MHcaseWDev/huA95Ueo1L4b54Fh1YNxllncv7b8eqZ+X+cKQyiaP8ukMjeOy2DJY7n5XERhcv c5KwITLh9hrJ/nb8haIt/Rsr2r+hPmLi1Cpx9qamk6dfUej/Xnx9Pvb+qwX/1YL/asF/xTTdm3Q8BJB+ BrfMqlaL7VbvMy2u6CyaWtupC/tpf91O++qWoR/4/c D5J/QTeoPeoF/QL+l87Uq6f78oX9V5bS/klvZPbnm+992WXm+3yutrlKYgKtgpp2NA9akkHGR9YT6og7 3H64TdbDWu8e4tcy9rsc3fk1Xst+kmseas7m0e0ajLaS/7uK24gwI0YlWm9kQa7/+3apdhnTpl26N+Pc sGvUHf+9T02q4czOc/3/i9Q+/4fcZTUp/+0fZJ7b9A c91wiZuSxc4JFUt0hNz5uq+n/dQ9bw4IB0dzG8eHvSTl0R/oF/Qb+t6/vQ38wYYXsahgSy5oo30VUq/u ghPDTzJi9Lr1Pg6LB/r8s+Www3G2Tg/if5Nn6ljQ/YJ+4Twb5+u85s41RYOowrhrPD9vAv8Jpeszm3tP GV6itqodK9fCu9wOY1CJYHnk+2F8ae9g5S/X70880u Rmyj7ugb4/mW9i4snloo6Vs26tsMtT/yKA1Xkrkx3CDy29qGu/V3iut1jQt1TN7mda+H3HU/gv5BP3fF vzq37i5YFOD/QL+vB3bf1O7/OTdhf2uSK43P4766kynu/s/ZQr7cj3zdkab2YaaK/KI4rh3mwon6b9p4 /7XhwF7S9r6Sf/YeyANs9ZqI21fg1n9/bM1jFKbb48 tdw4L6LI2En5Nu+fM6LX1Smd8/7J7W0/b1/QL+z53Iv8k76xT+quy5Djw0ysY745tuk6WgfbP2oJmzz4 M0T4IE8CwYIDo2Qh7Nc0TJ/Y0G/oe//+ahy35yk3eh6J/mK2wB9OxaUsrKgrNwqU/YB+Qj+hN+gN+gX9 gr7jg/5s6B2/d+gDv+/9dwxNR1zd1AZ3sN83rR7+Regi 1vd2l/m1wQemZo9Re3A/oFffvrXNpf5+LQO/QBffdnx/qq6ge4cf569t421y769t222u565s+8Scws1I ivor6K+cruyto8Ms6X24LW7XN72B/dct/P6PHrA/UdeL4D/XmgPw/054H+PHq+4lT5AwS3lP1E2L27Q/ eIwq79cu41+PUR+A1Jyt69kjb6WQ/aN1Hdgbg14Usr +lSBk51mm/Bf+UR9J+o7Ud+J+c2262pxN/E0S37uXH2p3cuJoRHgd/flgygJZ2cukr5S+gyts9dwta0K +umjr7xvwg5U+twsg8ictf4G/qm5aysE+kJ9F+qL+DVwNcpSYxnjt092cOZ+6IgPOuKDDv+DDo6gnV69 4oOO+CQlBthW3V1s01P5M+qL9e2+Ap7e030jgF4g3g 5Wd48b2g8s51F3085aGuxYi5RK+H9h93J4MU/0jfpuzFeO+cof6DF+Hc/F0Whdo9axiL50t+9zm7bDK+ 54/3rbk+3gN5wh3Hd3wdvJX8u6xiq4vay36/Wx7r0+3lA00F6D8Y1E7ry1YI2sE/Yj1oBY6ub6HLk+4v cDird72hBo6F/o05+jfnw489jw86q2RKNDvlue3pi/ DahR8GN8br8C/FcB/1U8A/oB/YR+Qm84v+G6C/bKjqsi5rs3MlK99I3/hmbkNg9CA020G+ejK2JYA1Fu 7++tsQ1yIXOkPoFdZhMaPsTOOC9plSS9BPGyGtgfjT0MpyZp3Jz7nkGAdp/2VcC+QqbUmB2aLQ29IgyO s5KE9Hs7K/kMvRDl3Z/oF/Qb+g29Q+/QB/QdT4nR/u Ольга/Wn86H7V+o7UN+0r7TKr/74ZGLk/pTIMvSnvk/ojc1QnK1W0s/7Mdq/Eem/On6VSP+S0uHevD6zE2 81y237ebDjRPajrAZ6ddHesJy+/rWvRvr/45Xias5CjVoAYGFs/O1nide+Bxq2Wn151gc5K8/Rmb+ZZ7 /Yqo2hG6Y0sS5a+/9sf07M/s2L3azr1cySTGFSO9/N vob9jmEGmeo/yrGW+a+yDTP/jZjM9g4QERnRJ4rkefoZuIZ9wNBGRpprgCUtkq5Sgu5dbNP/oT/xlDr2 1Qj2evO38lHVUsAESnkqdcWiBR9EjFKMjaqFsJNadN10IE+tGC46aHVRNIYQkb+staAhQku7ital3vqP T1Z//5aNpWT4cgPuWL+g7/0edNn9NGjYmolUNwcWTf 7CpT7Q2S/Fcugd+oC+412nc87x7Iv7xv28y1Sf/MqP5oLBO/QD+bd2tVkG1tioOx/o2aYZiq77Wi8Kr+ MpsTt+FDug7/qLfO1GJf/9oeF4/8jzzo8a/cVrXT9G4/8p6HJ2OL4BJ1I9I9S7Tt+eImzKyrz12H7by9 8W2Z3nCh937TI0p7eJ77jD2SdpKLM0Ck44t6E7CeJC [file] Uzg0YEFkElofPRYRYr== ID Date Data Source [id number] 02/21/2020 09:53:51 AM EST [facility] Name Value Range Interpretation Code Description Data Pascale rce(s) Supporting Document(s) &PDF [facility] DTYYMu2eVfXARyRf38/LYRusOJOgv0UfDVleURb2VHadEWEnD2BazZtmUOBTJ9IJYLtHM5eLNwXzBcZb yKE [file] ogICAgICAgICAgICAgICAgICAgICAgICAgICAgICAgICAgICAgICAgICAgICAgICAgICAgICAgICAgIC AgICAgICAgICAgICAgICAgICAgICAgICAgICAgICAg ICAgICAgICAgDQogICAgICAgICAgICAgICAgICAgICAgICAgICAgICAgICAgICAgICAgICAgICAgICAg ICAgICAgICAgICAgICAgICAgICAgICAgICAgICAgICAgICAgICAgICAgICAgICAgICAgDQogICAgICAg ICAgICAgICAgICAgICAgICAgICAgICAgICAgICAgIC AgICAgICAgICAgICAgICAgICAgICAgICAgICAgICAgICAgICAgICAgICAgICAgICAgICAgICAgICAgIC AgDQogICAgICAgICAgICAgICAgICAgICAgICAgICAgICAgICAgICAgICAgICAgICAgICAgICAgICAgIC AgICAgICAgICAgICAgICAgICAgICAgICAgICAgICAg ICAgICAgICAgICAgDQogICAgICAgICAgICAgICAgICAgICAgICAgICAgICAgICAgICAgICAgICAgICAg ICAgICAgICAgICAgICAgICAgICAgICAgICAgICAgICAgICAgICAgICAgICAgICAgICAgICAgDQogICAg ICAgICAgICAgICAgICAgICAgICAgICAgICAgICAgIC AgICAgICAgICAgICAgICAgICAgICAgICAgICAgICAgICAgICAgICAgICAgICAgICAgICAgICAgICAgIC AgICAgDQogICAgICAgICAgICAgICAgICAgICAgICAgICAgICAgICAgICAgICAgICAgICAgICAgICAgIC AgICAgICAgICAgICAgICAgICAgICAgICAgICAgICAg ICAgICAgICAgICAgICAgDQogICAgICAgICAgICAgICAgICAgICAgICAgICAgICAgICAgICAgICAgICAg ICAgICAgICAgICAgICAgICAgICAgICAgICAgICAgICAgICAgICAgICAgICAgICAgICAgICAgICAgDQog ICAgICAgICAgICAgICAgICAgICAgICAgICAgICAgIC AgICAgICAgICAgICAgICAgICAgICAgICAgICAgICAgICAgICAgICAgICAgICAgICAgICAgICAgICAgIC AgICAgICAgDQogICAgICAgICAgICAgICAgICAgICAgICAgICAgICAgICAgICAgICAgICAgICAgICAgIC AgICAgICAgICAgICAgICAgICAgICAgICAgICAgICAg TLCfJBGjFWYtPAJoWNByHLTzHZf4I8mwJTHqSUHoZK8sATk3Hi5+MXkNPnOdHVJ9rbOzvJ7PSU4aa5Ei KSgbOMPvs5JuLFw1BR5EGYXbVEyzWK0UIOtbxo5ZYABhRRXutVPDd6plRnDuKOG8MOVpAbiyQL2EFVHw S9raqjDbWCBnVVLKIPbdONYAQS7EWxLdN2LvbD23VK INCj4+CGwxoaUfEusCWzAxYWYyf9TuPHs0BG8JXEMyVFmlQO8MHKYtvQ5jMAvyFV6WIhPhESYqOEQOYc EyN10mlAGdWBn5D4GqHwTpJIKyEwnhOQFrKHydDhAqFCLvZsZpFAivCH3+ID4+OEnpGX2BZWjvyqPhJC QuOp9WZAPuZDB8VYGipTGeZaQsCSFHFCagBS5FhBPs ZFH0oX2pSKjsLJWqRSFyH7dFEhWrgUwzVU68jDpmjfYwzHDoWCt+Ph0BEK7vq2WiDRf7yjXcMOdeAEPd GDpnCCHcLQCsTSLiJLL8BOJ3QOGXWnIxHBTcSWGfLTvwGMVmTRIwrk3GMATuZHYvDHJkGYTmJQIkEYVc BHhvBEHxAMXiSEO5UXEyQTGbUS5RHqOeIXMqXMEjIR OcBUYdWHBbpa1QATWqJPDsUxQ4AMKsKWEmNCIvRCsdLKPmKEZbPDjgNAJpEKUwSK2ALpIuNVVgCDI4Ww TcDODlVAXbwf4OCNJkTOQrJAfiSPBrMMVzDJZtFXckNBVsPWB9Cqc1OGNcEFRyTZ9VInPpEZTjRMN3IJ YjRFHnBSFmmp2FYGPpALVyYiR3OFJcVAFpMJXrHYzr SLGsXGR9NDU6MKGkEKClOA4HRyQoKGFlWJzcRbEwQTDrJIMgeo4BJMJlGXSpGYPdRDOjRYKwXWVfQHlr LJClRBZ7QvkrOISiKVOwDP0DScGuXDVlVFl1WuLiVRHkDWCpqv2ZAOMeHIYeCIy3GCLfUIGwBKKpUXdm ONQkLMF2NESlAUDfYFIrAL1VJvYeHBAlRJwsEWjcSL SsJADbjb7OAWHaLMEuTUFyGXPyPDUtOECrWFnxQPEuVSTgGGuuXFBoNSQrRP5MQcNjMQovREUQMxr8RS ovI6u2MREzTe7OS9Qkw3BcLpJwCDEUUMxrHC7ppcTfZAEaYx6LA5fWSui9ZdJ7BtjtNKBbKJCnMGKzZS A6BZC8YIK5NCDdJGJgYA7eZJW2VNkpMtR4NsK6OELm WPXyNqZ0TDloPtF3OAEiTDUyIwDrQD8LMy1ANdB2GBS2nQTaMm3ZBqTnFgJXUdBrOF2QPXn= ID Date Data Source [id number] 02/21/2020 07:50:00 AM EST [facility] NT INFORMATIONPatient MRN Name Date of Age Gend*PT [id number] Rashid Machado W 1950 70 years M OBSPT Location Admission Date/Time Visit ID Attending [id number] 02/20/20 5452 --- Francesca Still MD([id number]) EPI ID CSN Admitting Provider [id number] Sirisha Luong MD([id number])Inpatient History & PhysicalRashid FieldRN: [id number] and Plan:Active Problems: Sarcoidosis Asthma Coronary artery disease Pure hypercholesterolemia Skin cancer Chest pain to rule out ACSAssessment & Plan1. Atypical chest pain to rule out ACS Status post aspirin 162 mg Continue aspirin 81 mg daily Continue nitro sublingual 0.4 mg sublingual as needed Continue Nitropaste Plan nuclear stress test a.m. classroom monitor Troponin trend Keep n.p.o.CXR: Small left [...] past medical history of asthma, sarcoidosis, historyof IA was referred from the diazo technician office to ED for evaluation of chestpain. Patient reports that last couple of weeks he has been havingintermittent chest discomfort and yesterday sustained episode of 30-ziimnlbvd-jpkcxgm chest pain, burning similar to previous presentation with heartattack in May. He took nitroglycerin with the prompt resolution of hissymptoms within 5 minutes. 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 he has been compliant [...] file Gets together: Not on file Attends sikhism service: Not on file Active member of [...] suzi(s) Supporting Document(s) ID Date Data Source [id number] 02/21/2020 08:23:20 AM EST [facility] [place] Name Value Range Interpretation Code Description Data [facility](s) Supporting Document(s) TROPONIN I <0.05 ng/mL (<0.05) [facility] [place] Less than 0.05: Myocardial injury unlike lyGreater than or equal to 0.05: Highly suggestive of myocardial injuryCorrelation with rise and/or fall ofserial troponins, clinical symptomsand ECG changes is necessary. ID Date Data Source [id number] 02/21/2020 03:39:49 AM EST [address] [place], [place] [address]Xkkuioz Name: Rashid SanmDOB: 1950Sex: MOrdering Provider: SIRISHA BRUMFIELDAuthoridayna Prov: SIRISHA BRUMFIELDReferrgemma Provider: Procedure Performed: CT CHEST WO CONTRASTExam Date: 02/21/2020 02:22MRN: [id number] Number: [id number] Class: INFORMATION: Exam: CT Chest Without Contrast [...] rce(s) Supporting Document(s) ID Date Data Source [id number] 02/21/2020 12:02:18 AM EST [facility] INFORMATIONPatient MRN Name Date of Age Gend*PT [id number] Rashid Machado 1950 70 years M OBSPT Location Admission Date/Time Visit ID Attending [id number] 02/20/20 2332 --- Sirisha Luong MD([id number]) EPI ID CSN Admitting Provider [id number] Sirisha Luong MD([id number])Provider in Triage NotesED Provider in Triage NotePatient Name: Rashid Jasso and Time of Assessment: 02/20/20, 4:06 PMChief ComplaintPatient presents with Chest Pain States took NTg yesterday is SOB, coming from the PCP office. Pt states havingsome general weakness had burning in mid chest yesterday pain free today Shortness of BreathBrief HPI: 70 years male, history of IA with three stents placed earlier thisyearStarted with [...] chest yesterday pain free today Shortness of Udffxo63-tsrc-xlo male comes emergency department from his cardiology office withconcerns of chest pain. Patient had complained to his diazo technician about chestpain. He has a history of [...] complaints.History provided by: Medical records and patientLanguage wind instrument repairer used: NoShortness of BreathAssociated symptoms: chest painAssociated [...] seen and evaluated. Required/Additional orders were placed. [SC][address] Luong, admit to hospital. [SC]ED Course User Index[SC] Subshaneir S Jayy, MDProceduresMDMNumber of Diagnoses or Management OptionsChest pain, precordial: new and requires workupDiagnosis management comments: 70-year-old male presents to emergency departmentwith chest pain. 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 was requested that thepatient be evaluated [...] rce(s) Supporting Document(s) ID Date Data Source [id number] 02/20/2020 08:44:06 PM EST [facility] NT INFORMATIONPatient MRN Name Date of Age Gend*PT [id number] JeannetteRashid 1950 70 years M EDPT Location Admission Date/Time Visit ID Attending Provider --- --- --- --- EPI ID CSN Admitting Provider [id number] ---Attestation signed by Benny Montenegro MD at [...] BreathBrief HPI: 70 years male, history of IA with three stents placed earlier thisyearStarted with some SOB and generalized weakness, "heart burning"Physical exam:VSSAmbulatoryNontoxPreliminary Plan:Labs, EKG, CXRThis not e was electronically signed by STACIA Kessler, 02/20/20, 4:06 PM.ED CourseSTACIA Kessler02/20/20 1607Benny Montenegro MD02/20/202043 Name Value Range Interpretation Code Description Data [facility] rce(s) Supporting Document(s) ID Date Data Source [id number] 02/20/2020 05:32:[address] [address]Ozxtngg Name: RASHID SANMDOB: 1950Sex: MOrdering Provider: MARGIE Hoover Prov: MARGIE Fleix Provider: Procedure Performed: XR CHEST PA AND LATERALExam Date: 02/20/2020 16:49MRN: [id number] Number: [id number] Class: EmergencyAccount #: [id number] for Exam: chest painTechnique: PA and lateral views obtained.Comparison: 06/05/2019Findings: There is no compelling evidence of heart failure. Small left pleural effusion is suspected versus pleural reaction.IMPRESSION: Small left pleural effusion versus pleural reaction is seen. Subtle pneumonia cannot be excluded.Report electronically signed by: PERRY FRANKLIN On 02/20/2020 5:32 PMWorkstation ID: [id number] - [id number] Name Value Range Interpretation Code Description Data Pascale rce(s) Supporting Document(s) ID Date Data Source [id number] 02/20/2020 02:39:17 PM EST [facility] Name Value Range Interpretation Code Description Data Pascale rce(s) Supporting Document(s) EKG [facility] [id number]U1RwCKk jb2 [file] [id number]+[id number]DBIS9Y= ID Date Data Source [id number] 02/20/2020 02:16:05 PM EST [facility] Name Value Range Interpretation Code Description Data Pascale rce(s) Supporting Document(s) POC CTNI <0.01 ng/mL (0.01-0.07) L [facility] Less than 0.08: Myocardial injury unlike lyGreater than or equal to 0.08: Highlysuggestive of myocardial injuryCorrelation with rise and/or fall ofserial troponins, clinical symptoms,and ECG changes is necessary.PERFORMED BY [facility] CLINICAL STAFF ID Date Data Source [id number] 02/21/2020 03:45:40 AM EST [facility] Name Value Range Interpretation Code Description Data Pascale rce(s) Supporting Document(s) NT PRO BNP 34 pg/mL (0-125) [facility] ID Date Data Source [id number] 02/20/2020 02:42:41 PM EST [facility] Name Value Range Interpretation Code Description Data Pascale rce(s) Supporting Document(s) SODIUM 141 mmol/L (136-145) [facility] POTASSIUM 4.4 mmol/L (3.6-5.2) [facility] CHLORIDE 108 mmol/L (100-108) [facility] CO2 34 mmol/L (22-31) H [facility] ANION GAP (7-16) [facility] UREA NITROGEN 15 mg/dL (7-24) [facility] CREATININE 0.89 mg/dL (0.80-1.30) [facility] BUN/CREAT RATIO 16.9 RATIO (10.0-20.0) [facility] GLUCOSE 96 mg/dL (70-99) [facility] CALCIUM 9.2 mg/dL (8.4-10.2) [facility] TOTAL PROTEIN 7.2 g/dL (6.4-8.2) [facility] ALBUMIN 3.7 g/dL (3.2-4.5) [facility] GLOBULIN 3.5 g/dL (2.7-4.3) [facility] ALB/GLOB RATIO 1.1 RATIO [facility] ALKALINE PHOSPHATASE 68 U/L (45-117) [facility] BILIRUBIN,TOTAL 0.4 mg/dL (0.0-1.0) [facility] PLEASE NOTE:Total bilirubin results may be falselyelevated in patients taking Eltrombopag. AST (SGOT) 26 U/L (11-39) [facility] ALT (SGPT) 51 U/L (12-78) [facility] GFR >60 ml/min/1.73m2 (>59) [facility] GFR ( AMER) >60 ml/min/1.73m2 (>59) [facility] GFR INTERPRETATION [facility] --NORMAL KIDNEY FUNCTION OR MILD DISEASE - GFR >OR= 60CHRONIC KIDNEY DISEASE - GFR 15 - 59RENAL FAILURE - GFR <15 Est. GFR calculation based on the MDRDstudy equation, which assumes a steadystate for creatinine. Est. GFR should notbe used for medication dosing. ID Date Data Source [id number] 02/20/2020 02:42:15 PM EST [facility] Name Value Range Interpretation Code Description Data Pascale rce(s) Supporting Document(s) APTT 25.8 s (22.0-34.3) Lab [facility] ID Date Data Source [id number] 02/20/2020 02:42:15 PM EST [facility] Name Value Range Interpretation Code Description Data Pascale rce(s) Supporting Document(s) PT 10.7 s (9.2-11.9) [facility] INR 1.02 [facility] SUGGESTED THERAPEUTIC RANGES USING INR F ORSTABILIZED ANTICOAGULATED PATIENTS:STANDARD DOSE THERAPY INR 2.0-3.0 DVT, PE, PREVENT DVT OR EMBOLISMHIGH DOSE THERAPY INR 2.5-3.5 PREVENT EMBOLISM FROM MECHANICAL HEART VALVE ID Date Data Source [id number] 02/20/2020 02:24:43 PM EST [facility] Name Value Range Interpretation Code Description Data Pascale rce(s) Supporting Document(s) WBC 6.2 10*3/uL (4.1-11.0) [facility] RBC 5.35 10*6/uL (4.60-6.10) [facility] HGB 17.3 g/dL (13.5-18.0) [facility] HCT 50.7 % (41.0-53.0) [facility] MCV 94.8 fL (80.0-95.0) [facility] MCH 32.4 pg (27.0-32.0) H [facility] MCHC 34.2 g/dL (32.0-36.0) [facility] RDW 13.1 % (10.5-14.5) [facility] PLT 178 10*3/uL (150-450) [facility] MPV 7.8 fL (7.1-10.7) [facility] NEUT % 58.4 % (35.0-75.0) [facility] LYMPH % 27.3 % (16.0-52.0) [facility] MONO % 11.3 % (0.0-8.0) H [facility] EOS % 2.3 % (0.0-5.0) [facility] BASO % 0.7 % (0.0-4.0) [facility] NEUT # 3.6 10*3/uL (1.8-7.7) [facility] LYMPH # 1.7 10*3/uL (1.2-4.8) [facility] MONO # 0.7 10*3/uL (0.0-0.8) [facility] Eosinophils [#/volume] in Blood by Automated count 0.1 10*3/uL (0.0-0 .5) [facility] BASO # 0.0 10*3/uL (0.0-0.2) [facility] ID Date Data Source [id number] 02/20/2020 01:17:34 PM EST [facility] INFORMATIONPatient MRN Name Date of Age Gend*PT [id number] Jeannette Rashid Arenas 1950 70 years M ---PT Location Admission Date/Time Visit ID Attending Provider --- --- --- --- EPI ID CSN Admitting Provider [id number] ---CARDIOLOGY OFFICE NOTEPatient: Rashid Arenas Jeannette : [...] parts of this document, were dictated using Profound software. Areasonable attempt at proofreading has been made to minimize errors. Please callwith any questions or corrections. Name Value Range Interpretation Code Description Data Pascale rce(s) Supporting Document(s) Procedure Social History Code Duration Value Status Description Data Source(s ) Smoking 01/25/2021 12:00:00 AM EDT Patient has never smoked co mpleted Patient has never smoked [facility] ([facility]) Alcohol intake 12/23/2020 12:00:00 AM EDT Current drinker of al cohol (finding) completed Current drinker of alcohol (finding) [facility] Smoking 10/26/2020 12:00:00 AM EDT Never Smoker completed Never S moker eCW1 ([facility]) Smoking 04/26/2020 12:00:00 AM EST Never Smoker completed Never S moker eCW1 ([facility]) Alcohol intake 03/09/2020 12:00:00 AM EST Yes completed [facility] Smoking 03/09/2020 12:00:00 AM EST Never smoker completed Never s moker [facility] Alcohol intake 02/21/2020 12:00:00 AM EST Yes completed [facility] Smoking 02/21/2020 12:00:00 AM EST Never smoker completed Never s ollieker [facility] Vital Signs ID Date Data Source UNK Name Value Range Interpretation Code Description Data Source(s) Body height 71 [in_i] 71 [in_i] [facility] ([facility]) 5'11" Diastolic blood pressure 72 mm[Hg] 72 mm[Hg] [facility] ([facility]) Systolic blood pressure 126 mm[Hg] 126 mm[Hg] M EDENT ([facility]) [facility] 72 /min 72 /[facility] Body temperature 98.9 [degF] 98.9 [degF] [facility] ([facility]) Respiratory rate 20 /min 20 /min [facility] ( [facility]) Oxygen saturation in Arterial blood by Pulse oximetry 94 % 94 % [facility] ([facility]) [place] body weight 172 [lb_av] 172 [lb_av] MEDEN T ([facility]) Systolic blood pressure 124 mm[Hg] 124 mm[Hg] [facility] Diastolic blood pressure 74 mm[Hg] 74 mm[Hg] [facility] Heart rate 71 /min 71 /min [facility] Body temperature 36.06 Yamile 36.06 Yamile [facility] Body height 182.9 cm 182.9 cm [facility] Body weight 113.581 kg 113.581 kg [facility] Body mass index (BMI) [Ratio] 33.96 kg/m2 33.96 kg/m2 [facility] Oxygen saturation in Arterial blood by Pulse oximetry 99 % 99 % [facility] Systolic blood pressure 138 mm[Hg] 138 mm[Hg] M EDENT ([facility]) Diastolic blood pressure 84 mm[Hg] 84 mm[Hg] [facility] ([facility]) Body height 71 [in_i] 71 [in_i] [facility] ([facility]) 5'11" Body weight 259.00 [lb_av] 259.00 [lb_av] MEDEN T ([facility]) Heart rate 76 /min 76 /min [facility] ([facility]) Respiratory rate 20 /min 20 /min [facility] ( [facility]) Body temperature 98.4 [degF] 98.4 [degF] [facility] ([facility]) Body mass index (BMI) [Ratio] 36.1 kg/m2 36.1 k g/m2 [facility] ([facility]) Oxygen saturation in Arterial blood by Pulse oximetry 99 % 99 % [facility] ([facility]) [place] body weight 172 [lb_av] 172 [lb_av] MEDEN T ([facility]) Body weight 259.0 [lb_av] 259.0 [lb_av] eCW1 ([facility]) Body height 74 [in_i] 74 [in_i] W1 ([facility]) Body mass index (BMI) [Ratio] 33.25 kg/m2 33.25 kg/m2 eCW1 ([facility]) Systolic blood pressure 124 mm[Hg] 124 mm[Hg] e CW1 ([facility]) Diastolic blood pressure 76 mm[Hg] 76 mm[Hg] eCW1 ([facility]) Systolic blood pressure 140 mm[Hg] 140 mm[Hg] M EDENT ([facility]) Respiratory rate 18 /min 18 /min [facility] ( [facility]) Body temperature 97.7 [degF] 97.7 [degF] [facility] ([facility]) Oxygen saturation in Arterial blood by Pulse oximetry 96 % 96 % [facility] ([facility]) [place] body weight 172 [lb_av] 172 [lb_av] MEDEN T ([facility]) Body height 71 [in_i] 71 [in_i] [facility] ([facility]) 5'11" Body weight 246.00 [lb_av] 246.00 [lb_av] MED[facility] T ([facility]) Body mass index (BMI) [Ratio] 34.3 kg/m2 34.3 k g/m2 [facility] ([facility]) Heart rate 71 /min 71 /min [facility] ([facility]) Diastolic blood pressure 68 mm[Hg] 68 mm[Hg] [facility] ([facility]) Body weight 251.0 [lb_av] 251.0 [lb_av] eCW1 ([facility]) Body height 74 [in_i] 74 [in_i] eCW1 ([facility]) Body mass index (BMI) [Ratio] 32.22 kg/m2 32.22 kg/m2 eCW1 ([facility]) Systolic blood pressure 108 mm[Hg] 108 mm[Hg] e CW1 ([facility]) Diastolic blood pressure 70 mm[Hg] 70 mm[Hg] eCW1 ([facility]) Systolic blood pressure 126 mm[Hg] 126 mm[Hg] [facility] Diastolic blood pressure 66 mm[Hg] 66 mm[Hg] [facility] Systolic blood pressure 157 mm[Hg] 157 mm[Hg] [facility] Diastolic blood pressure 89 mm[Hg] 89 mm[Hg] [facility] Heart rate 58 /min 58 /min [facility] Body temperature 36.78 Yamile 36.78 Yamile [facility] Oxygen saturation in Arterial blood by Pulse oximetry 99 % 99 % [facility] Respiratory rate 14 /min 14 /min [facility] Body weight 110.678 kg 110.678 kg [facility] Body mass index (BMI) [Ratio] 33.09 kg/m2 33.09 kg/m2 [facility] Systolic blood pressure 158 mm[Hg] 158 mm[Hg] [facility] 142/76 repeat after 5 minutes Diastolic blood pressure 94 mm[Hg] 94 mm[Hg] [facility] 142/76 repeat after 5 minutes Heart rate 75 /min 75 /min [facility] Body temperature 36.28 Yamile 36.28 Yamile [facility] Respiratory rate 20 /min 20 /min [facility] Body weight 111.131 kg 111.131 kg [facility] Body mass index (BMI) [Ratio] 33.23 kg/m2 33.23 kg/m2 [facility] Oxygen saturation in Arterial blood by Pulse oximetry 95 % 95 % [facility] Body temperature 97.9 [degF] 97.9 [degF] [facility] ([facility]) Oxygen saturation in Arterial blood by Pulse oximetry 96 % 96 % [facility] ([facility]) [place] body weight 172 [lb_av] 172 [lb_av] MED[facility] T ([facility]) Heart rate 72 /min 72 /min [facility] ([facility]) Respiratory rate 18 /min 18 /min [facility] ( [facility]) Systolic blood pressure 128 mm[Hg] 128 mm[Hg] [facility] Diastolic blood pressure 78 mm[Hg] 78 mm[Hg] [facility] ([facility]) Body height 71 [in_i] 71 [in_i] [facility] ([facility]) 5'11" Body weight 241.25 [lb_av] 241.25 [lb_av] MEDEN T ([facility]) Body mass index (BMI) [Ratio] 33.6 kg/m2 33.6 k g/m2 [facility] ([facility]) Patient Treatment Plan of Care Planned Activity Planned Date Details Description Data Source (s) Tamsulosin hydrochloride 0.4 MG Oral Capsule 12/13/2020 12:00:00 AM EDT [facility] Losartan Potassium 25 MG Oral Tablet 12/09/2020 12:00:00 AM EDT [facility] EPINEPHrine (EPIPEN) 0.3 MG/0.3ML SOAJ 11/01/2020 12:00:00 AM EDT [facility] doxycycline hyclate 50 MG Oral Capsule 10/26/2020 12:00:00 AM EDT [facility] doxycycline hyclate 50 MG Oral Capsule 10/26/2020 12:00:00 AM EDT eCW1 ([facility]) Ticagrelor 90 MG Oral Tablet 07/19/2020 12:00:00 AM EDT [facility] carvedilol 3.125 MG Oral Tablet 07/19/2020 12:00:00 AM EDT [facility] atorvastatin 40 MG Oral Tablet 07/19/2020 12:00:00 AM EDT [facility] atorvastatin 40 MG Oral Tablet 02/04/2020 12:00:00 AM EDT [facility] Ticagrelor 90 MG Oral Tablet 12/03/2019 12:00:00 AM EDT [facility] carvedilol 3.125 MG Oral Tablet 12/03/2019 12:00:00 AM EDT [facility] Aspirin 81 MG Delayed Release Oral Tablet 06/06/2019 12:00:00 AM ES T [facility] 24 HR Testosterone 0.0833 MG/HR Transdermal Patch [facility]
[2021-01-26] MEDS ORDERED: PROAAER10 INH (18:50)
[2021-01-26] MEDS ORDERED: ATOR40TA75 PO (18:50)
[2021-01-26] MEDS ORDERED: FLOM0.4C39 PO (18:50)
[2021-01-26] MEDS ORDERED: TRAM50TA2 PO (18:50)
[2021-01-26] MEDS ORDERED: LOSA25TA14 PO (18:50)
[2021-01-26] MEDS ORDERED: DIAZ10TA2 PO (18:50)
[2021-01-26] MEDS ORDERED: MOME50SP NARES (18:50)
[2021-01-26] MEDS ORDERED: MAGN400C PO (18:50)
[2021-01-26] MEDS ORDERED: CARV3.12 PO (18:50)
[2021-01-26] MEDS ORDERED: D-40TAB2 PO (18:50)
[2021-01-26] MEDS ORDERED: BRIL90TA PO (18:50)
[2021-01-26] MEDS ORDERED: SILD100T PO (18:50)
[2021-01-26] MEDS ORDERED: HOME MED LIST COMPLETE! XX SCH (18:55)
[2021-01-26] MEDS ORDERED: ATORVASTATIN 20 MG TAB PO SCH (21:00)
[2021-01-26] MEDS ORDERED: TAMSULOSIN 0.4 MG CAP PO SCH (21:00)
[2021-01-26] MEDS ORDERED: LOSARTAN 25 MG TAB PO SCH (21:00)
[2021-01-26 21:42] VITALS: BP 131/63
[2021-01-27] MEDS ORDERED: diazePAM 10 MG TAB PO PRN
[2021-01-27] MEDS ORDERED: traMADol 50 MG TAB PO PRN
[2021-01-27] MEDS ORDERED: ALBUTEROL 90 MCG/ACT 8GM HFA INHALER INH PRN
[2021-01-27] MEDS: CARVedilol 3.125 MG TAB PO SCH ×3 (01:26→10:23)
[2021-01-27 06:00] VITALS: BP 135/61
--- NOTE | 2021-01-27 07:38 | ECGEPIP ---
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
[2021-01-27 07:42] LABS: BASO # 0.1 10^3/uL (0.0-0.2); BASO % 0.9 % (0.0-1.0); EOS # 0.2 10^3/uL (0.0-0.5); EOS % 3.8 % (0.0-3.0); HEMATOCRIT 47.8 % (42.0-52.0); HEMOGLOBIN 16.1 g/dl (13.5-17.5); LYMPH # 1.6 10^3/uL (1.5-5.0); LYMPH % 27.5 % (24.0-44.0); MEAN CORPUSCULAR HEMOGLOBIN 31.3 pg (27.0-33.0); MEAN CORPUSCULAR HGB CONC 33.7 g/dl (32.0-36.5); MEAN CORPUSCULAR VOLUME 92.8 fl (80.0-96.0); MONO # 0.5 10^3/uL (0.0-0.8); MONO % 8.9 % (2.0-8.0); NEUTROPHILS # 3.4 10^3/uL (1.5-8.5); NEUTROPHILS % 58.2 % (36.0-66.0); PLATELET COUNT, AUTOMATED 148 10^3/uL (150-450); RED BLOOD COUNT 5.15 10^6/uL (4.30-6.10); WHITE BLOOD COUNT 5.9 10^3/uL (4.0-10.0)
[2021-01-27 07:57] LABS: D-DIMER QUANT 1068.92 ng/ml (<500)
[2021-01-27 08:00] VITALS: BP 138/80
[2021-01-27] MEDS ORDERED: ADVAIR HFA 115/21MCG INHALER INH SCH (08:00)
[2021-01-27 08:16] LABS: ALBUMIN 3.2 GM/DL (3.2-5.2); ALT/SGPT 46 U/L (12-78); BILIRUBIN,TOTAL 0.5 MG/DL (0.2-1.0); BLOOD UREA NITROGEN 13 MG/DL (7-18); CALCIUM LEVEL 8.7 MG/DL (8.8-10.2); CARBON DIOXIDE LEVEL 28 MEQ/L (21-32); CHLORIDE LEVEL 108 MEQ/L (98-107); CREATININE FOR GFR 0.81 MG/DL (0.70-1.30); GLOMERULAR FILTRATION RATE > 60.0 (>42); GLUCOSE, FASTING 104 MG/DL (70-100); MAGNESIUM LEVEL 2.1 MG/DL (1.8-2.4); POTASSIUM SERUM 4.1 MEQ/L (3.5-5.1); SODIUM LEVEL 142 MEQ/L (136-145); TOTAL PROTEIN 6.1 GM/DL (6.4-8.2)
[2021-01-27] MEDS ORDERED: NS 1,000 ML IV SCH (08:25)
[2021-01-27 08:39] LABS: TROPONIN I < 0.02 NG/ML (< 0.10)
[2021-01-27] MEDS ORDERED: FLUTICASONE PROP 0.05% NASAL SPRAY 16 GM (FLONASE) NARES SCH (09:00)
[2021-01-27] MEDS ORDERED: MAGNESIUM OXIDE 400MG TAB (MAG-OX) PO SCH (09:00)
--- NOTE | 2021-01-27 09:54 | REP ---
INDICATION: r/o DVT COMPARISON: None. TECHNIQUE: Price scale and color Doppler evaluation using linear high frequency transducer. FINDINGS: Ultrasound examination of the right and left lower extremity deep venous structures from the common femoral vein through the calf/ankle to include the peroneal, and tibial veins demonstrates normal compressibility flow and wave patterns in response to respiration and augmentation. There is no evidence for deep venous thrombosis. IMPRESSION: No evidence for deep venous thrombosis. <Electronically signed by Chris Crowell > 01/27/21 [id number]
--- NOTE | 2021-01-27 09:57 | REP ---
INDICATION: r/o PE COMPARISON: None. TECHNIQUE: Axial contrast enhanced images from the thoracic inlet to the upper abdomen using pulmonary embolus technique with multiplanar re-formations. 75 ml Isovue 370 intravenous contrast material administered without complication. This CT examination was performed using the following dose reduction techniques: Automated exposure control, adjustment of mA and/or kv according to the patient's size, and use of iterative reconstruction technique. FINDINGS: Satisfactory enhancement of the pulmonary vasculature is achieved and no filling defects are identified to suggest pulmonary embolus. Further evaluation of the mediastinum demonstrates normal thoracic aorta, heart and pericardium. The bilateral lung solomon are well aerated and clear without acute consolidation pleural effusion or pneumothorax. Tracheobronchial tree is patent. No nodule or mass lesion is identified. No adenopathy noted. Minimal scattered chronic fibrolinear scarring noted along with evidence for prior granulomatous disease including few scattered calcified mediastinal lymph nodes. Surrounding musculoskeletal structures intact IMPRESSION: No evidence for pulmonary embolus. No acute mediastinal or pleural parenchymal process. <Electronically signed by Chris Crowell > 01/27/21 0933
[2021-01-27 10:23] VITALS: BP 138/80
--- NOTE | 2021-01-27 13:46 | DS.PDOC ---
Discharge Summary General Date of Admission Jan 26, 2021 at 14:04 Date of Discharge 01/27/21 Discharge Summary PROCEDURES PERFORMED DURING STAY: [None]. ADMITTING DIAGNOSES: Exertional dyspnea Hx of CAD DISCHARGE DIAGNOSES: Exertional dyspnea Hx of CAD COMPLICATIONS/CHIEF COMPLAINT: Exertional Dyspnea. HISTORY OF PRESENT ILLNESS: 70 yo M with a PMHx of CAD s/p 2 stents, HLD, sarcoidisis, presented to ER c/o a week hx of exertional dyspnea. He first felt SOB when walking on a regular hike. He denies chest pain, palpitations, leg swelling, cough/hemoptysis. He was seen in his PCP office. Serum D dimer elevated to 1000. CTA chest was ordered, but not diagnostic as there was poor opacification pulmonary arteries. Patient is being admitted to hospitalist service for workup of exertional dyspnea. HOSPITAL COURSE: Exertional dyspnea - 1 week hx, improving - D dimer elevated, 1000 - Initial CTA Chest negative for PE. Was started on heparin ggt after discussion with Dr. Peraza regarding Brilinta. - D/w Dr. Price, recommends repeat of CTA in lieu of V/Q Scan - CTA negative for PE. Venous duplex negative for PE. - 2D ECHO reviewed with Dr. Carcamo. Trace pericardial effusion. LVEF 60-65%. Mild diastolic dysfunction. - DC heparin GGT - will resume Brilinta on DC. - SOB has improved, ambulating independently, saturating at 95% on RA. - patient to follow up with his primary sample worker at [facility] in [place], [place] CAD - s/p 2 stents 2 years ago - takes brilinta - held brilinta while on heparin ggt, resume on DC. DVT ppx: heparin ggt. Dispo: admitted for observation. DISCHARGE MEDICATIONS: Please see below. ALLERGIES: Please see below. PHYSICAL EXAMINATION ON DISCHARGE: VITAL SIGNS: please see below General: NAD, comfortable HEENT: PERRLA, EOMI, sclerae clear Neck: supple, normal ROM, no JVD Respiratory: lungs CTAB, no wheeze, no rales, no crackles CVS: RRR, normal S1, S2, no murmurs Abdo: soft, no masses, no hepatosplenomegaly, BS+, no rebound tenderness Extremities: no edema, pulses 2+ MSK: no joint deformities, normal ROM Neuro: no focal neuro deficits, moving all 4 extremities, CN2-12 intact. Strength 5/5 in all 4 extremities. No nystagmus. Psych: calm, cooperative, AAO x 3 LABORATORY DATA: Please see below. IMAGING: Bilateral venous duplex (01/27/21): FINDINGS: Ultrasound examination of the right and left lower extremity deep venous structures from the common femoral vein through the calf/ankle to include the peroneal, and tibial veins demonstrates normal compressibility flow and wave patterns in response to respiration and augmentation. There is no evidence for deep venous thrombosis. IMPRESSION: No evidence for deep venous thrombosis. CT angiogram (01/27/21): FINDINGS: Satisfactory enhancement of the pulmonary vasculature is achieved and no filling defects are identified to suggest pulmonary embolus. Further evaluation of the mediastinum demonstrates normal thoracic aorta, heart and pericardium. The bilateral lung solomon are well aerated and clear without acute consolidation pleural effusion or pneumothorax. Tracheobronchial tree is patent. No nodule or mass lesion is identified. No adenopathy noted. Minimal scattered chronic fibrolinear scarring noted along with evidence for prior granulomatous disease including few scattered calcified mediastinal lymph nodes. Surrounding musculoskeletal structures intact IMPRESSION: No evidence for pulmonary embolus. No acute mediastinal or pleural parenchymal process. PROGNOSIS: good ACTIVITY: [As tolerated]. DIET: low fat diet DISCHARGE PLAN: DC home. F/u PCP and primary sample worker at [facility]. Resume Brilinta. DISPOSITION: . DISCHARGE INSTRUCTIONS: . Please follow-up with your primary care doctor within 3-5 days . Please follow-up with cardiology at [facility] in [place], [place] within 1-2 weeks . Please continue taking medications as prescribed. You may resume Brilinta. . If you develop bleeding, chest pain, shortness of breath, seizures, nausea, fevers, or otherwise worsening of your symptoms, please call 911 or return to the nearest emergency room ITEMS TO FOLLOWUP ON ON OUTPATIENT: Final ECHO report. DISCHARGE CONDITION: [Stable]. TIME SPENT ON DISCHARGE: 35 minutes Vital Signs/I&Os Vital Signs Date Time Temp Pulse Resp B/P (MAP) Pulse Ox O2 Delivery O2 Flow Rate FiO2 01/27/21 10:23 66 138/80 01/27/21 08:23 16 01/27/21 08:00 97.6 97 Room Air I&O- Last 24 Hours up to 6 AM 01/27/21 06:00 Intake Total 130 ml Output Total 700 ml Balance -570 ml Laboratory Data Labs 24H Laboratory Tests 2 01/26/21 15:26: Prothrombin Time 13.4, Prothromb Time International Ratio 0.98, Activated Partial Thromboplast Time 28.4, Anion Gap 3L, Glomerular Filtration Rate > 60.0, Calcium Level 9.2, Total Bilirubin 0.6, Aspartate Amino Transf (AST/SGOT) 23, Alanine Aminotransferase (ALT/SGPT) 50, Alkaline Phosphatase 72, Total Creatine Kinase 156, Creatine Kinase MB 3.7H, Creatine Kinase MB Relative Index 2.37, Troponin I < 0.02, Total Protein 7.0, Albumin 3.5, Albumin/Globulin Ratio 1.0 01/26/21 15:34: Coronavirus (COVID-19)(PCR) NEGATIVE, Influenza Type A (RT-PCR) NEGATIVE, Influenza Type B (RT-PCR) NEGATIVE, Respiratory Syncytial Virus (PCR) NEGATIVE 01/26/21 18:35: Activated Partial Thromboplast Time 28.3 01/27/21 00:16: Activated Partial Thromboplast Time 77.0H 01/27/21 07:15: Immature Granulocyte % (Auto) 0.7, Neutrophils (%) (Auto) 58.2, Lymphocytes (%) (Auto) 27.5, Monocytes (%) (Auto) 8.9H, Eosinophils (%) (Auto) 3.8H, Basophils (%) (Auto) 0.9, Neutrophils # (Auto) 3.4, Lymphocytes # (Auto) 1.6, Monocytes # (Auto) 0.5, Eosinophils # (Auto) 0.2, Basophils # (Auto) 0.1, Nucleated Red Blood Cells % (auto) 0.0, Activated Partial Thromboplast Time 127.0*H, D-Dimer, Quantitative 1068.92H, Anion Gap 6L, Glomerular Filtration Rate > 60.0, Calcium Level 8.7L, Magnesium Level 2.1, Total Bilirubin 0.5, Aspartate Amino Transf (AST/SGOT) 20, Alanine Aminotransferase (ALT/SGPT) 46, Alkaline Phosphatase 73, Troponin I < 0.02, Total Protein 6.1L, Albumin 3.2, Albumin/Globulin Ratio 1.1 CBC/BMP Laboratory Tests 01/26/21 15:26 01/27/21 07:15 Discharge Medications Scheduled Atorvastatin Calcium (Atorvastatin Calcium) 40 Mg Tablet, 40 MG PO QHS, (Reported) Carvedilol (Carvedilol) 3.125 Mg Tablet, 3.125 MG PO BID, (Reported) Cholecalciferol (Vitamin D3) (Vitamin D-400) 10 Mcg Tablet, 10 MCG PO DAILY, ( Reported) Fluorometholone Acetate (Flarex) 0.1% 5ML Drops.susp, 1 DROP OD DAILY, (Reported) Losartan Potassium (Losartan Potassium) 25 Mg Tablet, 25 MG PO QHS, (Reported) Magnesium Oxide (Magnesium) 400 Mg Capsule, 400 MG PO DAILY, (Reported) Mometasone Furoate Monohydrate (Nasonex) 17 Gm [place].pump, 1 SPRAY NARES DAILY, (Reported) Salmeterol/Fluticasone (Advair 250-50 Diskus) 1 Each Blst.w.dev, 1 PUFF INH DAILY, (Reported) Tamsulosin HCl (Flomax) 0.4 Mg Capsule, 0.4 MG PO QHS, (Reported) Testosterone Cypionate (Testosterone Cypionate) 200 Mg/1 Ml Vial, 25 MG IM 1XWK, (Reported) MONDAYS Ticagrelor Base (Brilinta) 90 Mg Tablet, 90 MG PO BID, (Reported) Scheduled PRN Albuterol Sulfate (Proair Hfa) 8.5 Gm Hfa.aer.ad, 2 PUFF INH Q4H PRN for SHORTNESS OF BREATH, (Reported) Diazepam (Diazepam) 10 Mg Tablet, 10 MG PO TID PRN for VERTIGO/DIZZINESS, (Reported) Sildenafil Citrate (Sildenafil Citrate) 100 Mg Tablet, 100 MG PO ASDIRECTED PRN for ERECTILE DYSFUNCTION, (Reported) Tramadol HCl (Tramadol HCl) 50 Mg Tablet, 50 MG PO BID PRN for PAIN LEVEL 5-10, (Reported) Allergies Coded Allergies: No Known Allergies (Unverified , 06/04/19) ANALY VALDEZ MD Jan 27, 2021 13:46
--- NOTE | 2021-01-27 15:37 | ECHO ---
ECHOCARDIOGRAM DATE OF PROCEDURE: 01/27/2021 Age: 70 Gender: Height: 6 feet Weight: 257 pounds REFERRING PROVIDER: Dr. Andrea Gotti. PATIENT LOCATION: Room 4221. REASON FOR THE ECHOCARDIOGRAM: Shortness of breath. 2D MEASUREMENTS: IVS 1.3 cm LVPW 1.3 cm LA 4.3 cm Aorta 3.5 cm LA 3.6 cm DOPPLER MEASUREMENT Peak velocity across the aortic valve 1.2 m/s Peak velocity across the LVOT 0.8 m/s Mitral E 0.74 Mitral A 0.93 with a ratio of 0.79 2D COMMENTS: 1. Normal left ventricular size with mildly increased left ventricular wall thickness and a normal global left ventricular systolic function. The estimated left ventricular systolic ejection fraction is 60 to 65%. 2. The left atrium and the right atrium were not well visualized but maybe mildly enlarged on limited views. Normal left atrium. 3. The atrial septum appeared to be normal without evidence of defect or shunt. 4. Normal aortic root. 5. A small pericardial effusion was noted. No evidence of cardiac tamponade. 6. Minimally calcified aortic valve with normal leaflet excursion. Normal mitral valve, tricuspid valve, and pulmonic valve. The proximal pulmonary artery branches also appeared to be normal. 7. The inferior vena cava was not well visualized. DOPPLER: Only trace mitral regurgitation detected. Abnormal relaxation pattern was noted across the mitral valve leaflets as well as the mitral valve annulus consistent with features of grade 1 left ventricular diastolic dysfunction. IMPRESSION: 1. Normal global left ventricular systolic function. There are some features of grade 1 left ventricular diastolic dysfunction manifested by abnormal relaxation. 2. Aortic valve sclerosis without stenosis or aortic regurgitation. 3. Trace mitral regurgitation. 4. A small pericardial effusion was noted. No evidence of cardiac tamponade. 5. The right heart chambers were not well visualized but may be mildly enlarged in limited views.
[2021-01-27 19:48] LABS: NT-PRO BNP 19 PG/ML (<125)
== END 2021-01-27 14:23 | disposition home or self-care (01) ==
LOC: M ED 14:03 → M ED INP 14:04 → ENRESERV 19:26 → M MSPAV 21:42
PROVIDERS: ADMIT Family Medicine; ATTEND Family Medicine
DX: R06.00 Dyspnea, unspecified (principal); R79.1 Abnormal coagulation profile; I25.10 Atherosclerotic heart disease of native coronary artery without angina pectoris; Z95.5 Presence of coronary angioplasty implant and graft; E78.5 Hyperlipidemia, unspecified; D86.9 Sarcoidosis, unspecified; J45.909 Unspecified asthma, uncomplicated; Z79.899 Other long term (current) drug therapy; Z79.51 Long term (current) use of inhaled steroids; Z79.890 Hormone replacement therapy; R06.02 Shortness of breath
CPT/HCPCS: 36415; 71046; 71275; 80053; 82550; 82553; 83735; 83880; 84484; 85025; 85379; 85610; 85652; 85730; 87631; 93005; 93306; 93970; 94640; 96365; 99285; G0378; J1644; Q9967

== ENCOUNTER → 2021-01-26 | Outpatient (CLI) | payer MEDICARE, OTHER ==
[2021-01-26 08:55] LABS: BASO # 0.1 10^3/uL (0.0-0.2); EOS # 0.2 10^3/uL (0.0-0.5); EOS % 3.1 % (0.0-3.0); HEMATOCRIT 50.7 % (42.0-52.0); HEMOGLOBIN 16.9 g/dl (13.5-17.5); LYMPH # 1.6 10^3/uL (1.5-5.0); LYMPH % 28.4 % (24.0-44.0); MEAN CORPUSCULAR HEMOGLOBIN 31.4 pg (27.0-33.0); MEAN CORPUSCULAR HGB CONC 33.3 g/dl (32.0-36.5); MEAN CORPUSCULAR VOLUME 94.1 fl (80.0-96.0); MONO # 0.5 10^3/uL (0.0-0.8); MONO % 8.7 % (2.0-8.0); NEUTROPHILS # 3.3 10^3/uL (1.5-8.5); NEUTROPHILS % 58.1 % (36.0-66.0); PLATELET COUNT, AUTOMATED 154 10^3/uL (150-450); RED BLOOD COUNT 5.39 10^6/uL (4.30-6.10); WHITE BLOOD COUNT 5.7 10^3/uL (4.0-10.0)
--- NOTE | 2021-01-26 09:05 | REP ---
INDICATION: SHORTNESS OF BREATH COMPARISON: 06/04/2019 TECHNIQUE: PA and lateral. FINDINGS: The mediastinum and cardiac silhouette are normal. The lung solomon are clear and without acute consolidation, effusion, or pneumothorax. The skeletal structures are intact and normal. IMPRESSION: No acute cardiopulmonary process. <Electronically signed by Chris Crowell > 01/26/21 0901
[2021-01-26 09:16] LABS: ALBUMIN 3.4 GM/DL (3.2-5.2); ALT/SGPT 55 U/L (12-78); BILIRUBIN,TOTAL 0.7 MG/DL (0.2-1.0); BLOOD UREA NITROGEN 16 MG/DL (7-18); CARBON DIOXIDE LEVEL 33 MEQ/L (21-32); CHLORIDE LEVEL 105 MEQ/L (98-107); CPK CREATINE PHOSPHOKINASE 162 U/L (39-308); CREATININE FOR GFR 1.01 MG/DL (0.70-1.30); GLOMERULAR FILTRATION RATE > 60.0 (>42); GLUCOSE, FASTING 115 MG/DL (70-100); MB/CK RELATIVE INDEX 2.47 (< OR =4); NT-PRO BNP 23 PG/ML (<125); POTASSIUM SERUM 4.4 MEQ/L (3.5-5.1); SODIUM LEVEL 140 MEQ/L (136-145); TROPONIN I < 0.02 NG/ML (< 0.10)
[2021-01-26 09:22] LABS: ERYTHROCYTE SEDIMENTATION RATE 5 mm/hr (0-20)
== END ==
LOC: M LAB 08:25
PROVIDERS: ATTEND Family Medicine
DX: R06.02 Shortness of breath (principal)

== ENCOUNTER → 2021-01-26 | Outpatient (CLI) | payer MEDICARE, OTHER ==
[~2021-01-26] MED LIST changes: +ISOVUE-370 76% 100ML VIAL As Ordered ONE
--- NOTE | 2021-01-26 12:20 | REP ---
INDICATION: SOB COMPARISON: None. TECHNIQUE: Axial contrast enhanced images from the thoracic inlet to the upper abdomen using pulmonary embolus technique with multiplanar re-formations. 75 ml Isovue 370 intravenous contrast material administered without complication. This CT examination was performed using the following dose reduction techniques: Automated exposure control, adjustment of mA and/or kv according to the patient's size, and use of iterative reconstruction technique. FINDINGS: Thoracic aorta is normal and without aneurysm or dissection. No cardiomegaly or pericardial effusion. Pulmonary arteries are normal caliber, but evaluation for pulmonary embolus is nondiagnostic due to suboptimal opacification of the pulmonary vasculature. Lung solomon demonstrate mild chronic age-related changes and evidence for prior granulomatous disease including calcified mediastinal and hilar lymph nodes. No acute consolidation. No effusion. No pneumothorax. Tracheobronchial tree is patent. No adenopathy. Surrounding musculoskeletal structures are intact. Limited upper abdomen demonstrates normal bilateral adrenal glands. IMPRESSION: 1. Nondiagnostic for pulmonary embolus. Normal thoracic aorta and heart/pericardium. 2. Evidence for prior granulomatous disease. No acute mediastinal or pleuroparenchymal process appreciated. <Electronically signed by Chris Crowell > 01/26/21 0451
== END ==
LOC: M RAD 11:47
PROVIDERS: ATTEND Family Medicine
DX: R06.02 Shortness of breath (principal)

== ENCOUNTER 2021-11-08 22:36 | Inpatient (IN) | payer MEDICARE ==
[~2021-11-08] VITALS: Ht 182.9 cm; Wt 122.5 kg
[~2021-11-08 22:36] MED LIST changes: -ASPI-551 PO; -DOXY50TA12 PO; -ELIQ5TAB PO; -METO1TAB87 PO; -MOME50SP2
[2021-11-08 23:03] LABS: BASO # 0.1 10^3/uL (0.0-0.2); BASO % 0.6 % (0.0-1.0); EOS # 0.2 10^3/uL (0.0-0.5); EOS % 1.8 % (0.0-3.0); HEMATOCRIT 48.8 % (42.0-52.0); LYMPH # 2.5 10^3/uL (1.5-5.0); LYMPH % 27.4 % (24.0-44.0); MEAN CORPUSCULAR HEMOGLOBIN 32.3 pg (27.0-33.0); MEAN CORPUSCULAR HGB CONC 34.8 g/dl (32.0-36.5); MEAN CORPUSCULAR VOLUME 92.8 fl (80.0-96.0); MONO # 0.9 10^3/uL (0.0-0.8); MONO % 9.8 % (2.0-8.0); NEUTROPHILS # 5.4 10^3/uL (1.5-8.5); PLATELET COUNT, AUTOMATED 177 10^3/uL (150-450); RED BLOOD COUNT 5.26 10^6/uL (4.30-6.10)
[2021-11-08] MEDS ORDERED: METOPROLOL TART 25 MG TABLET PO ONE (23:05)
[2021-11-08 23:15] LABS: INR 0.97; PROTHROMBIN TIME 13.2 SECONDS (12.7-14.5)
[2021-11-08] MEDS: METOPROLOL 5 MG/5 ML VIAL IV SCH ×2 (23:27→23:54)
[2021-11-08 23:30] LABS: CK-MB VALUE MASS 5.3 NG/ML (<3.6); MB/CK RELATIVE INDEX 2.48 (< OR =4)
[2021-11-09 00:21] LABS: ALBUMIN 3.6 GM/DL (3.2-5.2); ALT/SGPT 35 U/L (12-78); BILIRUBIN,DIRECT < 0.1 MG/DL (0.0-0.2); BILIRUBIN,TOTAL 0.4 MG/DL (0.2-1.0); BLOOD UREA NITROGEN 18 MG/DL (7-18); CALCIUM LEVEL 9.4 MG/DL (8.8-10.2); CARBON DIOXIDE LEVEL 27 MEQ/L (21-32); CHLORIDE LEVEL 108 MEQ/L (98-107); CREATININE FOR GFR 0.93 MG/DL (0.70-1.30); GLOMERULAR FILTRATION RATE > 60.0 (>42); GLUCOSE, FASTING 126 MG/DL (70-100); LIPASE 131 U/L (73-393); NT-PRO BNP 46 PG/ML (<125); POTASSIUM SERUM 4.2 MEQ/L (3.5-5.1); SODIUM LEVEL 142 MEQ/L (136-145); TOTAL PROTEIN 6.6 GM/DL (6.4-8.2)
[2021-11-09] MEDS: METOPROLOL 5 MG/5 ML VIAL IV SCH ×3 (00:30→00:50)
[2021-11-09] MEDS ORDERED: METOPROLOL TART 25 MG TABLET PO ONE (00:40)
[2021-11-09] MEDS ORDERED: DIGOXIN INJ 0.5 MG/2 ML AMP (J1160) IV ONE ×2 (02:05→03:10)
[2021-11-09] MEDS ORDERED: NS 1,000 ML IV ONE ×2 (03:55→06:10)
[2021-11-09 06:15] LABS: RSV AMPLIFICATION NEGATIVE (NEGATIVE)
[2021-11-09] MEDS ORDERED: MOME50SP2 (06:59)
[2021-11-09] MEDS ORDERED: DOXY50TA12 PO (06:59)
[2021-11-09] MEDS ORDERED: HOME MED LIST COMPLETE! XX SCH (07:00)
[2021-11-09] MEDS ORDERED: diazePAM 10 MG TAB PO PRN (07:55)
[2021-11-09] MEDS ORDERED: ALBUTEROL 90 MCG/ACT 8GM HFA INHALER INH PRN (07:55)
[2021-11-09] MEDS ORDERED: traMADol 50 MG TAB PO PRN (07:55)
[2021-11-09] MEDS: ADVAIR HFA 115/21MCG INHALER INH SCH (09:36)
[2021-11-09] MEDS: ASPIRIN 81MG ENTERIC TABLET PO SCH (10:30)
[2021-11-09] MEDS: APIXABAN 5 MG TAB (ELIQUIS) PO SCH ×2 (10:30→19:52)
[2021-11-09] MEDS: METOPROLOL TART 25 MG TABLET PO SCH ×2 (10:31→19:52)
[2021-11-09] MEDS: FLUOROMETHOLONE 0.1% OPHTH SUSP 5 ML BTL OD SCH (10:32)
[2021-11-09 18:40] VITALS: BP 135/67
[2021-11-09 20:00] VITALS: BP 107/56
[2021-11-09] MEDS ORDERED: ATORVASTATIN 20 MG TAB PO SCH (21:00)
[2021-11-10] VITALS: BP 89/54
[2021-11-10 04:00] VITALS: BP 101/56
[2021-11-10 06:28] LABS: HEMATOCRIT 45.1 % (42.0-52.0); MEAN CORPUSCULAR HEMOGLOBIN 31.8 pg (27.0-33.0); MEAN CORPUSCULAR HGB CONC 33.3 g/dl (32.0-36.5); MEAN CORPUSCULAR VOLUME 95.6 fl (80.0-96.0); PLATELET COUNT, AUTOMATED 145 10^3/uL (150-450); RED BLOOD COUNT 4.72 10^6/uL (4.30-6.10); WHITE BLOOD COUNT 6.3 10^3/uL (4.0-10.0)
[2021-11-10 07:18] LABS: BLOOD UREA NITROGEN 12 MG/DL (7-18); CALCIUM LEVEL 8.9 MG/DL (8.8-10.2); CARBON DIOXIDE LEVEL 27 MEQ/L (21-32); CHLORIDE LEVEL 109 MEQ/L (98-107); CREATININE FOR GFR 0.78 MG/DL (0.70-1.30); GLOMERULAR FILTRATION RATE > 60.0 (>42); GLUCOSE, FASTING 105 MG/DL (70-100); MAGNESIUM LEVEL 2.1 MG/DL (1.8-2.4); POTASSIUM SERUM 4.3 MEQ/L (3.5-5.1); SODIUM LEVEL 141 MEQ/L (136-145)
[2021-11-10] MEDS: ADVAIR HFA 115/21MCG INHALER INH SCH (07:59)
[2021-11-10 08:00] VITALS: BP 127/62
[2021-11-10] MEDS ORDERED: ELIQ5TAB PO (08:16)
[2021-11-10] MEDS ORDERED: ASPI-551 PO (08:16)
[2021-11-10] MEDS ORDERED: METO1TAB87 PO ×2 (08:16→08:22)
[2021-11-10] MEDS: ASPIRIN 81MG ENTERIC TABLET PO SCH (08:27)
[2021-11-10] MEDS: APIXABAN 5 MG TAB (ELIQUIS) PO SCH (08:28)
[2021-11-10] MEDS: FLUOROMETHOLONE 0.1% OPHTH SUSP 5 ML BTL OD SCH (08:29)
[2021-11-10 08:36] VITALS: BP 127/62
[2021-11-10] MEDS ORDERED: METOPROLOL TART 25 MG TABLET PO SCH (09:00)
[2021-11-10] MEDS ORDERED: METOPROLOL TART 12.5 MG PER 1/2 TAB PO SCH (09:00)
== END 2021-11-10 11:45 | disposition home or self-care (01) | DRG 310 ==
LOC: M ED 22:36 → M ED INP 11-09 07:50 → M PCU 11-09 18:35
PROVIDERS: ADMIT Internal Medicine; ATTEND Internal Medicine
PROC: B246ZZZ Ultrasonography of Right and Left Heart (ICD-10-PCS; principal; 2021-11-09)
DX: I48.91 Unspecified atrial fibrillation (principal); I25.10 Atherosclerotic heart disease of native coronary artery without angina pectoris; Z95.5 Presence of coronary angioplasty implant and graft; E78.5 Hyperlipidemia, unspecified; D86.9 Sarcoidosis, unspecified; Z96.651 Presence of right artificial knee joint; Z79.899 Other long term (current) drug therapy; Z20.822 Contact with and (suspected) exposure to COVID-19; I95.9 Hypotension, unspecified; I10 Essential (primary) hypertension; I25.2 Old myocardial infarction

== ENCOUNTER → 2021-11-08 | Outpatient (CLI) | payer MEDICARE, OTHER ==
[~2021-11-08] MED LIST changes: +ASPI-551 PO; +ATOR40TA75 PO; +BRIL90TA PO; +CARV3.12 PO; +D-40TAB2 PO; +DIAZ10TA2 PO; +DOXY50TA12 PO; +ELIQ5TAB PO; +FLOM0.4C39 PO; +LOSA25TA13 PO; +MAGN400C PO; +METO1TAB87 PO; +MOME50SP2; +NASO50SP3 NARES; +PROAAER10 INH; +SILD100T PO; +TRAM50TA2 PO
[2021-11-08 08:10] LABS: BASO # 0.1 10^3/uL (0.0-0.2); EOS # 0.1 10^3/uL (0.0-0.5); EOS % 1.9 % (0.0-3.0); HEMATOCRIT 49.6 % (42.0-52.0); HEMOGLOBIN 16.6 g/dl (13.5-17.5); LYMPH # 1.6 10^3/uL (1.5-5.0); LYMPH % 26.6 % (24.0-44.0); MEAN CORPUSCULAR HEMOGLOBIN 31.7 pg (27.0-33.0); MEAN CORPUSCULAR HGB CONC 33.5 g/dl (32.0-36.5); MEAN CORPUSCULAR VOLUME 94.8 fl (80.0-96.0); MONO # 0.5 10^3/uL (0.0-0.8); MONO % 8.4 % (2.0-8.0); NEUTROPHILS # 3.6 10^3/uL (1.5-8.5); NEUTROPHILS % 61.6 % (36.0-66.0); PLATELET COUNT, AUTOMATED 159 10^3/uL (150-450); RED BLOOD COUNT 5.23 10^6/uL (4.30-6.10); WHITE BLOOD COUNT 5.8 10^3/uL (4.0-10.0)
[2021-11-08 08:37] LABS: ALBUMIN 3.6 GM/DL (3.2-5.2); ALT/SGPT 34 U/L (12-78); BILIRUBIN,TOTAL 0.4 MG/DL (0.2-1.0); BLOOD UREA NITROGEN 16 MG/DL (7-18); CALCIUM LEVEL 9.3 MG/DL (8.8-10.2); CARBON DIOXIDE LEVEL 30 MEQ/L (21-32); CHLORIDE LEVEL 107 MEQ/L (98-107); CHOLESTEROL LEVEL 143 MG/DL (<200); CHOLESTEROL RISK RATIO 3.042 (<5); CREATININE FOR GFR 0.88 MG/DL (0.70-1.30); FREE T4 0.97 NG/DL (0.76-1.46); GLOMERULAR FILTRATION RATE > 60.0 (>42); GLUCOSE, FASTING 109 MG/DL (70-100); HDL CHOLESTEROL 47 MG/DL (>40); LDL CHOLESTEROL 81 MG/DL (<100); NON-HDL-C 96 MG/DL; POTASSIUM SERUM 4.2 MEQ/L (3.5-5.1); SODIUM LEVEL 142 MEQ/L (136-145); TOTAL PROTEIN 6.5 GM/DL (6.4-8.2); TRIGLYCERIDES LEVEL 75 MG/DL (<150)
[2021-11-09 12:09] LABS: PSA TOTAL 3.3 ng/mL (0.0-4.0); TESTOSTERONE FREE (DIRECT) 13.3 pg/mL (6.6-18.1)
== END ==
LOC: M LAB 07:37
PROVIDERS: ATTEND Family Medicine
DX: I25.119 Atherosclerotic heart disease of native coronary artery with unspecified angina pectoris (principal); F52.21 Male erectile disorder; E29.1 Testicular hypofunction

== ENCOUNTER → 2022-03-17 | Outpatient (CLI) | payer MEDICARE ==
[~2022-03-17] MED LIST changes: +ASPI-551 PO; +DOXY50TA12 PO; +ELIQ5TAB PO; +METO1TAB87 PO; +MOME50SP2
[2022-03-17 13:48] LABS: BASO # 0.1 10^3/uL (0.0-0.2); BASO % 0.7 % (0.0-1.0); EOS # 0.1 10^3/uL (0.0-0.5); EOS % 1.9 % (0.0-3.0); HEMATOCRIT 53.6 % (42.0-52.0); HEMOGLOBIN 17.4 g/dl (13.5-17.5); LYMPH # 1.6 10^3/uL (1.5-5.0); LYMPH % 23.8 % (24.0-44.0); MEAN CORPUSCULAR HEMOGLOBIN 31.5 pg (27.0-33.0); MEAN CORPUSCULAR HGB CONC 32.5 g/dl (32.0-36.5); MEAN CORPUSCULAR VOLUME 96.9 fl (80.0-96.0); MONO # 0.6 10^3/uL (0.0-0.8); MONO % 8.4 % (2.0-8.0); NEUTROPHILS # 4.3 10^3/uL (1.5-8.5); NEUTROPHILS % 64.8 % (36.0-66.0); PLATELET COUNT, AUTOMATED 156 10^3/uL (150-450); RED BLOOD COUNT 5.53 10^6/uL (4.30-6.10); WHITE BLOOD COUNT 6.7 10^3/uL (4.0-10.0)
[2022-03-17 14:06] LABS: ALBUMIN 3.6 G/DL (3.2-5.2); ALKALINE PHOSPHATASE 76 U/L (46-116); ALT/SGPT 31 U/L (7.0-40); AST/SGOT 17 U/L (<34); BILIRUBIN,TOTAL 0.6 MG/DL (0.3-1.2); BLOOD UREA NITROGEN 15 MG/DL (9-23); CARBON DIOXIDE LEVEL 31 MMOL/L (20-31); CHLORIDE LEVEL 103 MMOL/L (98-107); CHOLESTEROL LEVEL 133 MG/DL (<200); CHOLESTEROL RISK RATIO 3.72 (<5); CREATININE FOR GFR 0.89 MG/DL (0.70-1.30); GLOMERULAR FILTRATION RATE > 60.0 (>42); GLUCOSE, FASTING 107 MG/DL (74-106); HDL CHOLESTEROL 35.7 MG/DL (>40); LDL CHOLESTEROL 80.7 MG/DL (<100); NON-HDL-C 97 MG/DL; POTASSIUM SERUM 4.7 MMOL/L (3.5-5.1); SODIUM LEVEL 139 MMOL/L (136-145); TOTAL PROTEIN 6.2 G/DL (5.7-8.2); TRIGLYCERIDES LEVEL 83 MG/DL (<150)
[2022-03-17 14:11] LABS: FREE T4 1.13 NG/DL (0.89-1.76)
[2022-03-17 14:12] LABS: THYROID STIMULATING HORMONE 3.584 uIU/ML (0.55-4.78)
[2022-03-17 15:08] LABS: HEMOGLOBIN A1c 5.7 % (4.0-6.0)
[2022-03-18 20:08] LABS: PSA TOTAL 1.9 ng/mL (0.0-4.0); TESTOSTERONE FREE (DIRECT) 14.4 pg/mL (6.6-18.1)
== END ==
LOC: M LABDRWAD 09:05
PROVIDERS: ATTEND Family Medicine
DX: J45.40 Moderate persistent asthma, uncomplicated (principal); E29.1 Testicular hypofunction; R73.01 Impaired fasting glucose; I25.119 Atherosclerotic heart disease of native coronary artery with unspecified angina pectoris; Z79.01 Long term (current) use of anticoagulants; R97.20 Elevated prostate specific antigen [PSA]

== ENCOUNTER → 2022-04-26 | Outpatient (CLI) | payer MEDICARE ==
[2022-04-26 13:26] LABS: BASO # 0.1 10^3/uL (0.0-0.2); EOS # 0.2 10^3/uL (0.0-0.5); EOS % 2.9 % (0.0-3.0); HEMATOCRIT 50.1 % (42.0-52.0); HEMOGLOBIN 16.4 g/dl (13.5-17.5); LYMPH % 28.2 % (24.0-44.0); MEAN CORPUSCULAR HEMOGLOBIN 30.7 pg (27.0-33.0); MEAN CORPUSCULAR HGB CONC 32.7 g/dl (32.0-36.5); MEAN CORPUSCULAR VOLUME 93.6 fl (80.0-96.0); MONO # 0.6 10^3/uL (0.0-0.8); NEUTROPHILS # 4.1 10^3/uL (1.5-8.5); NEUTROPHILS % 58.3 % (36.0-66.0); PLATELET COUNT, AUTOMATED 172 10^3/uL (150-450); RED BLOOD COUNT 5.35 10^6/uL (4.30-6.10)
[2022-04-26 13:57] LABS: ALBUMIN 3.6 G/DL (3.2-5.2); ALKALINE PHOSPHATASE 94 U/L (46-116); ALT/SGPT 47 U/L (7.0-40); AST/SGOT 28 U/L (<34); BILIRUBIN,TOTAL 0.7 MG/DL (0.3-1.2); BLOOD UREA NITROGEN 19 MG/DL (9-23); CALCIUM LEVEL 9.1 MG/DL (8.3-10.6); CARBON DIOXIDE LEVEL 33 MMOL/L (20-31); CHLORIDE LEVEL 102 MMOL/L (98-107); CREATININE FOR GFR 0.93 MG/DL (0.70-1.30); GLOMERULAR FILTRATION RATE > 60.0 (>42); GLUCOSE, FASTING 103 MG/DL (74-106); POTASSIUM SERUM 4.5 MMOL/L (3.5-5.1); SODIUM LEVEL 140 MMOL/L (136-145); TOTAL PROTEIN 6.2 G/DL (5.7-8.2)
== END ==
LOC: M LABDRWAD 08:18
PROVIDERS: ATTEND Physician Assistant
DX: N41.0 Acute prostatitis (principal)
CPT/HCPCS: 36415; 80053; 85025; G0103

== ENCOUNTER → 2023-01-22 | Outpatient (CLI) | payer MEDICARE | LOC: M PLAIMG 09:08 | PROVIDERS: ATTEND Family Medicine | DX: M54.16 Radiculopathy, lumbar region (principal); M51.36 Other intervertebral disc degeneration, lumbar region ==

== ENCOUNTER → 2023-02-14 | Outpatient (REF) | payer MEDICARE ==
[2023-02-14 16:42] LABS: BLOOD UREA NITROGEN 20 MG/DL (9-23); CARBON DIOXIDE LEVEL 31 MMOL/L (20-31); CHLORIDE LEVEL 105 MMOL/L (98-107); CREATININE FOR GFR 0.94 MG/DL (0.70-1.30); GLOMERULAR FILTRATION RATE > 60.0 (>42); GLUCOSE, FASTING 80 MG/DL (74-106); POTASSIUM SERUM 4.8 MMOL/L (3.5-5.1); SODIUM LEVEL 142 MMOL/L (136-145)
== END ==
LOC: M LABDRWAD 15:55
PROVIDERS: ATTEND Family Medicine
DX: M54.50 Low back pain, unspecified (principal); M54.16 Radiculopathy, lumbar region

== ENCOUNTER → 2023-03-05 | Outpatient (CLI) | payer MEDICARE ==
[~2023-03-05] MED LIST changes: +PROHANCE 279.3MG/ML 15ML VIAL As Ordered ONE; +PROHANCE 279.3MG/ML 5ML VIAL As Ordered ONE
== END ==
LOC: M RAD 12:38
PROVIDERS: ATTEND Physician Assistant Surgical
DX: M47.24 Other spondylosis with radiculopathy, thoracic region (principal); M47.26 Other spondylosis with radiculopathy, lumbar region
CPT/HCPCS: 72146; 72158; A9576

== ENCOUNTER → 2023-05-22 | Outpatient (REF) | payer MEDICARE ==
[~2023-05-22] MED LIST changes: -PROHANCE 279.3MG/ML 15ML VIAL As Ordered ONE; -PROHANCE 279.3MG/ML 5ML VIAL As Ordered ONE
[2023-05-22 14:09] LABS: BASO % 0.7 % (0.0-1.0); EOS # 0.2 10^3/uL (0.0-0.5); EOS % 3.2 % (0.0-3.0); HEMOGLOBIN 16.6 g/dl (13.5-17.5); LYMPH # 1.7 10^3/uL (1.5-5.0); LYMPH % 32.3 % (24.0-44.0); MEAN CORPUSCULAR HEMOGLOBIN 31.1 pg (27.0-33.0); MEAN CORPUSCULAR HGB CONC 32.5 g/dl (32.0-36.5); MEAN CORPUSCULAR VOLUME 95.7 fl (80.0-96.0); MONO # 0.5 10^3/uL (0.0-0.8); MONO % 9.1 % (2.0-8.0); NEUTROPHILS # 2.9 10^3/uL (1.5-8.5); NEUTROPHILS % 54.3 % (36.0-66.0); PLATELET COUNT, AUTOMATED 155 10^3/uL (150-450); RED BLOOD COUNT 5.33 10^6/uL (4.30-6.10); WHITE BLOOD COUNT 5.4 10^3/uL (4.0-10.0)
[2023-05-22 14:14] LABS: THYROID STIMULATING HORMONE 4.116 uIU/ML (0.55-4.78); TOTAL 25(OH) VITAMIN D 41.7 NG/ML (20.0-100.0)
[2023-05-22 14:16] LABS: ALBUMIN 3.6 G/DL (3.2-5.2); ALKALINE PHOSPHATASE 80 U/L (46-116); ALT/SGPT 32 U/L (7.0-40); AST/SGOT 22 U/L (<34); BILIRUBIN,TOTAL 0.6 MG/DL (0.3-1.2); BLOOD UREA NITROGEN 18 MG/DL (9-23); CALCIUM LEVEL 9.1 MG/DL (8.3-10.6); CARBON DIOXIDE LEVEL 33 MMOL/L (20-31); CHLORIDE LEVEL 106 MMOL/L (98-107); CHOLESTEROL LEVEL 146 MG/DL (<200); CREATININE FOR GFR 0.91 MG/DL (0.70-1.30); FREE T4 1.14 NG/DL (0.89-1.76); GLOMERULAR FILTRATION RATE > 60.0 (>42); GLUCOSE, FASTING 99 MG/DL (74-106); HDL CHOLESTEROL 41.7 MG/DL (>40); LDL CHOLESTEROL 90.5 MG/DL (<100); NON-HDL-C 104.3 MG/DL; POTASSIUM SERUM 4.4 MMOL/L (3.5-5.1); SODIUM LEVEL 140 MMOL/L (136-145); TOTAL PROTEIN 6.2 G/DL (5.7-8.2); TRIGLYCERIDES LEVEL 69 MG/DL (<150)
[2023-05-22 20:36] LABS: HEMOGLOBIN A1c 6.2 % (4.0-6.0)
[2023-05-24 08:15] LABS: PSA TOTAL 1.6 ng/mL (0.0-4.0); TESTOSTERONE FREE (DIRECT) 11.8 pg/mL (6.6-18.1)
== END ==
LOC: M LABDRWAD 13:19
PROVIDERS: ATTEND Family Medicine
DX: R73.01 Impaired fasting glucose (principal); E55.9 Vitamin D deficiency, unspecified; E29.1 Testicular hypofunction; E78.00 Pure hypercholesterolemia, unspecified; R97.20 Elevated prostate specific antigen [PSA]

== ENCOUNTER → 2023-06-22 | Outpatient (REF) | payer MEDICARE ==
[2023-06-22 14:14] LABS: BASO # 0.1 10^3/uL (0.0-0.2); EOS # 0.2 10^3/uL (0.0-0.5); EOS % 3.3 % (0.0-3.0); HEMATOCRIT 51.5 % (42.0-52.0); HEMOGLOBIN 17.1 g/dl (13.5-17.5); LYMPH # 1.8 10^3/uL (1.5-5.0); LYMPH % 31.8 % (24.0-44.0); MEAN CORPUSCULAR HEMOGLOBIN 31.4 pg (27.0-33.0); MEAN CORPUSCULAR HGB CONC 33.2 g/dl (32.0-36.5); MEAN CORPUSCULAR VOLUME 94.5 fl (80.0-96.0); MONO # 0.5 10^3/uL (0.0-0.8); MONO % 8.9 % (2.0-8.0); NEUTROPHILS # 3.2 10^3/uL (1.5-8.5); NEUTROPHILS % 54.7 % (36.0-66.0); PLATELET COUNT, AUTOMATED 155 10^3/uL (150-450); RED BLOOD COUNT 5.45 10^6/uL (4.30-6.10); WHITE BLOOD COUNT 5.8 10^3/uL (4.0-10.0)
[2023-06-22 14:31] LABS: HEMOGLOBIN A1c 6.1 % (4.0-6.0)
[2023-06-22 14:44] LABS: ALBUMIN 3.6 G/DL (3.2-5.2); ALKALINE PHOSPHATASE 83 U/L (46-116); ALT/SGPT 37 U/L (7.0-40); AST/SGOT 25 U/L (<34); BILIRUBIN,TOTAL 0.7 MG/DL (0.3-1.2); BLOOD UREA NITROGEN 22 MG/DL (9-23); CALCIUM LEVEL 8.7 MG/DL (8.3-10.6); CARBON DIOXIDE LEVEL 31 MMOL/L (20-31); CHLORIDE LEVEL 106 MMOL/L (98-107); CHOLESTEROL LEVEL 111 MG/DL (<200); CHOLESTEROL RISK RATIO 3.15 (<5); CREATININE FOR GFR 0.94 MG/DL (0.70-1.30); GLOMERULAR FILTRATION RATE > 60.0 (>42); GLUCOSE, FASTING 97 MG/DL (74-106); HDL CHOLESTEROL 35.2 MG/DL (>40); LDL CHOLESTEROL 65.4 MG/DL (<100); NON-HDL-C 75.8 MG/DL; SODIUM LEVEL 140 MMOL/L (136-145); TRIGLYCERIDES LEVEL 52 MG/DL (<150)
[2023-06-22 14:45] LABS: TOTAL 25(OH) VITAMIN D 56.6 NG/ML (20.0-100.0)
== END ==
LOC: M LABDRWAD 12:47
PROVIDERS: ATTEND Family Medicine
DX: I25.119 Atherosclerotic heart disease of native coronary artery with unspecified angina pectoris (principal); E29.1 Testicular hypofunction; E55.9 Vitamin D deficiency, unspecified; R73.03 Prediabetes

== ENCOUNTER → 2023-09-06 | Outpatient (CLI) | payer MEDICARE | LOC: M CARPUL 09:11 | PROVIDERS: ATTEND Family Medicine | DX: I25.119 Atherosclerotic heart disease of native coronary artery with unspecified angina pectoris (principal) ==

== ENCOUNTER → 2024-06-10 | Outpatient (CLI) | payer MEDICARE ==
[~2024-06-10] MED LIST changes: -ADV250INH INH; +ADVA1AER9 INH
== END ==
LOC: M RAD 06:52
PROVIDERS: ATTEND Family Medicine
DX: R42 Dizziness and giddiness (principal); I95.2 Hypotension due to drugs; I65.23 Occlusion and stenosis of bilateral carotid arteries

== ENCOUNTER → 2024-06-12 | Outpatient (CLI) | payer MEDICARE | LOC: M PLAIMG 09:32 | PROVIDERS: ATTEND Family Medicine | DX: I65.23 Occlusion and stenosis of bilateral carotid arteries (principal); I95.89 Other hypotension ==